=== PATIENT | female | born 1935 | race Caucasian/White ===

== ENCOUNTER 2016-10-04 18:05 | Inpatient (IN) | payer MEDICARE, MEDICAID ==
[~2016-10-04] VITALS: Ht 149.9 cm; Wt 77.2 kg
[~2016-10-04 18:05] MED LIST: /AMLO25TA PO; CALCTAB68 PO; CIPR250T2 PO; FLAG500T PO; GLUC500T PO; LASI40TA PO; METO12TA PO; ZEST20TA8 PO
[2016-10-04] MEDS ORDERED: AMPICILLIN SOD/SULBACTAM SOD 3 GM in D5W MINI-BAG PLUS 100 ML IV ONE (20:30)
--- NOTE | 2016-10-04 20:40 | REPUSA ---
Clinical history: Pain, swelling. Findings: The common femoral, superficial femoral, popliteal, and other deep venous structures compre ss normally and demonstrate normal color Doppler flow. Normal venous waveforms with augmentation are seen. Impression: No evidence of deep vein thrombosis in either femoral popliteal venous system.
[2016-10-04 21:06] LABS: BASO % 0.3 % (0.0-1.0); EOS # 0.1 K/mm3 (0.0-0.50); EOS % 1.1 % (0.0-3.0); LARGE UNSTAINED CELL # 0.1 K/mm3 (0.0-0.4); LARGE UNSTAINED CELL % 1.6 % (0.0-4.0); LYMPH # 0.8 K/mm3 (1.5-4.5); LYMPH % 11.5 % (24.0-44.0); MEAN CORPUSCULAR HEMOGLOBIN 28.4 pg (27.0-33.0); MEAN CORPUSCULAR HGB CONC 30.8 g/dl (32.0-36.5); MEAN CORPUSCULAR VOLUME 92.2 fl (80.0-96.0); MONO # 0.4 K/mm3 (0.0-0.8); MONO % 5.4 % (0.0-5.0); NEUTROPHILS # 5.2 K/mm3 (1.8-7.7); PLATELET COUNT, AUTOMATED 232 k/mm3 (150-450); RED CELL DISTRIBUTION WIDTH 13.7 % (11.5-14.5); WHITE BLOOD COUNT 6.5 K/mm3 (4.0-10.0)
[2016-10-04 21:38] LABS: CALCIUM LEVEL 8.6 MG/DL (8.8-10.2); CREATININE FOR GFR 1.39 MG/DL (0.55-1.02); GLOMERULAR FILTRATION RATE 38.6 (>32); POTASSIUM SERUM 4.4 MEQ/L (3.5-5.1)
[2016-10-04] MEDS ORDERED: NS 500 ML IV ONE (21:45)
[2016-10-04] MEDS ORDERED: AMLO10TA PO (22:37)
[2016-10-04] MEDS ORDERED: LASI40TA PO (22:37)
[2016-10-04] MEDS ORDERED: LISI-538 PO (22:37)
[2016-10-04] MEDS ORDERED: METO12TA PO (22:37)
[2016-10-05] MEDS ORDERED: GLUCAGON FOR INJ 1 MG VIAL (J1610) SC PRN (04:15)
[2016-10-05] MEDS ORDERED: GLUCOSE 4 GM CHEW TABLET PO PRN (04:15)
[2016-10-05] MEDS ORDERED: DEXTROSE 50% 50 ML SYRINGE IV PRN (04:15)
[2016-10-05] MEDS ORDERED: ACETAMINOPHEN TAB 650MG DOSE (2X325MG) PO PRN (04:30)
--- NOTE | 2016-10-05 05:05 | HPE ---
DATE OF ADMISSION: 10/05/2016 PRIMARY CARE PROVIDER: Terrence Olivarez MD. CHIEF COMPLAINT: Left leg pain. HISTORY OF PRESENT ILLNESS: This is an 81-year-old female patient with underlying medical history of diabetes, hypertension, diastolic congestive heart failure, from home, presented with worsening left lower extremity pain and swelling and redness. As per patient, the symptom has been present for a while. Does not know how long, but has been getting progressively worse. Patient baseline ambulating with a walker. Lives at home alone and the symptom has contributed to her inability to ambulate, subsequently not being able to take care of herself. Subsequently, emergency medical services (EMS) was called. The patient was actively trying to arrange for home health aide with the primary care provider. Called EMS, today was found to be disheveled with home seen very unsanitary condition, was subsequently brought to the emergency room, was also found to be very disheveled with very poor hygiene. Denies any fevers, chills, chest pain, pressure or discomfort. Baseline ambulating with a walker. Difficulty ambulating because of left lower extremity pain. Found to have erythema and purulent drainage from left lower extremity, weeping. ALLERGIES: No known allergies reported. PAST MEDICAL HISTORY: 1. Diabetes. 2. Hypertension. 3. Diastolic congestive heart failure. PAST SURGICAL HISTORY: Right ankle repair and removal of hardware in the 1980s. FAMILY HISTORY: Father of unknown cause. Mother at age 100. SOCIAL HISTORY: Denies smoking. No alcoholic beverages. REVIEW OF SYSTEMS: 10-point review of systems all negative except for those mentioned in the history of present illness (HPI). HOME MEDICATIONS: - Norvasc 10 mg by mouth daily - Lasix 40 mg by mouth daily - lisinopril 20 mg by mouth twice a day - metoprolol 25 mg by mouth twice a day - patient was on metformin from primary care provider's documentation, but not on medication reconciliation VITAL SIGNS: Temperature 99.3, pulse 90, respirations 18, blood pressure 105/56, pulse oximetry 93% on room air. LABORATORY: WBC 6.5, hemoglobin and hematocrit 12.8/41.6, platelets 232. Chemistry: Sodium 144, potassium 4.4, chloride 109, bicarbonate 29, BUN 46, creatinine 1.39. Lactic acid 1.2. Preliminary foot x-ray shows no fracture. Ultrasound Doppler negative for deep venous thrombosis (DVT). PHYSICAL EXAMINATION: GENERAL: Patient alert and oriented times three, disheveled, in no acute distress. HEENT: Normocephalic, atraumatic. Lip crusting. Dry mucous membranes. PULMONARY: Bilaterally clear to auscultation. CARDIAC: Regular rate and rhythm. Systolic ejection murmur. ABDOMEN: Soft, nontender, nondistended. Positive bowel sounds. EXTREMITIES: Bilateral lower extremities crusted and disheveled with poor extended nail. Left lower extremity erythema and clear drainage. Dorsalis pedis (DP), posterior tibialis (PT) pulses 2+ bilaterally. Left lower extremity slightly weaker, but able to move. As per patient, difficult to move due to pain. ASSESSMENT AND PLAN: This is an 81-year-old female patient with underlying medical history of diabetes, hypertension, diastolic congestive heart failure, admitted to the hospital for cellulitis of the left lower extremity and unable to ambulate. 1. Cellulitis. Teflaro, followup cultures. Wound care as ordered. Followup C-reactive protein. 2. Deconditioning. Unable to ambulate. Possibly associated with advanced age and also with underlying infection. Physical therapy. Patient and family services (PFS) consulted. Patient potentially needs placement versus home with services. 3. Diabetes. Followup A1c. Patient does not have any diabetic medication documented. Followup fingersticks. Insulin as needed. 4. Chronic kidney disease (CKD). BUN and creatinine at baseline. Continue to follow. 5. Hypertension. Continue blood pressure medication as ordered. 6. History of diastolic congestive heart failure. Patient currently compensated, actually patient is a bit on the dry side with dry mucous membranes. Lasix dosage will resume tomorrow at a lower dose and continue to monitor fluid levels. Followup electrolytes, kidney function and daily weight. 7. Deep venous thrombosis (DVT) prophylaxis. Heparin subcutaneously. DISPOSITION PLANNING: Pending PFS, social work, clinical improvement.
[2016-10-05 05:20] VITALS: BP 117/63
[2016-10-05 06:32] LABS: MEAN CORPUSCULAR HEMOGLOBIN 28.8 pg (27.0-33.0); MEAN CORPUSCULAR HGB CONC 30.8 g/dl (32.0-36.5); MEAN CORPUSCULAR VOLUME 93.5 fl (80.0-96.0); RED CELL DISTRIBUTION WIDTH 13.6 % (11.5-14.5); WHITE BLOOD COUNT 8.6 K/mm3 (4.0-10.0)
[2016-10-05] MEDS: CEFTAROLINE FOSAMIL 300 MG in D5W MINI-BAG PLUS 50 ML IV SCH ×2 (06:32→18:13)
[2016-10-05] MEDS: HEPARIN SOD (PORCINE) 5000 UNITS/ML VIAL SC SCH ×3 (06:32→21:41)
[2016-10-05 06:50] LABS: CALCIUM LEVEL 8.5 MG/DL (8.8-10.2); CREATININE FOR GFR 1.07 MG/DL (0.55-1.02); GLOMERULAR FILTRATION RATE 52.3 (>32); MAGNESIUM LEVEL 2.2 MG/DL (1.8-2.4); POTASSIUM SERUM 4.2 MEQ/L (3.5-5.1)
[2016-10-05] MEDS: HumaLOG INSULIN (NovoLOG) PER UNIT SC SCH ×4 (07:30→20:36)
--- NOTE | 2016-10-05 08:20 | REP ---
Pain and swelling with soft tissue infection. COMPARISON: None. Only two views were obtained. The bones are demineralized. Degenerative change is seen throughout the foot. Degenerative change is seen throughout the ankle. There is a plantar calcaneal heel spur. Two views show on evidence of an acute fracture. There is soft tissue swelling distally. There is no plain radiographic evidence of acute osteomyelitis. IMPRESSION: Chronic changes. Signed by Neel Pulliam DO 10/05/2016 08:49 A
[2016-10-05] MEDS ORDERED: SENOKOT S TAB PO PRN (09:00)
[2016-10-05] MEDS ORDERED: SENOKOT S TAB PO SCH (09:00)
[2016-10-05] MEDS ORDERED: FUROSEMIDE 40 MG TAB PO SCH (09:00)
--- NOTE | 2016-10-05 09:17 | IPNPDOC ---
Date Seen The patient was seen on 10/05/16. Progress Note Hospitalist Progress Note Subjective: And she had just returned from x-ray when I arrived in the room. She did have some discomfort when being transferred into her hospital bed from transport bed. Otherwise she does not have any additional complaints. She did have left lower extremity pain when she came in, but she states that the pain is significantly improved at this point. Otherwise, she is quite pleasant, and has no additional complaints. Objective: General: Awake, alert, oriented 3. She is reclined in the hospital bed. She appears to be in no acute distress. HEENT: Head normocephalic, atraumatic, sclera are nonicteric. Hearing is grossly intact to conversation. Respiratory: Clear to auscultation bilaterally with no wheezes, rales, or rhonchi. Cardiovascular: Irregularly irregular, no murmurs rubs or gallops could be appreciated. Abdomen: Soft, nontender, nondistended, no hepatosplenomegaly appreciated. Bowel sounds present. Extremities: 2+ pulses in the radial and dorsalis pedis bilaterally. She does have a large area of erythema extending from the sole of her left foot up to the funk. She also has a significant amount of dried flaky skin on bilateral lower extremities, and a large cutaneous horn on the right lateral leg. There are venous stasis changes in bilateral lower extremities. Assessment/Plan: 1. Cellulitis left lower extremity. Continue with Teflaro. She does not have any leukocytosis or fever, her pain is significantly improved. We will trend her CRP. 2. Deconditioning. Continue with recommendations per physical therapy, and disposition planning with PFS 3. Diabetes. Hemoglobin A1c is 6.9 with no diabetic medications. We'll continue to monitor blood sugars and administer insulin as necessary per protocol 4. Chronic kidney disease. Creatinine significantly improved today. Continue to monitor 5. Hypertension. Within acceptable limits. Continue with lisinopril and metoprolol titrate at her home dose 6. History of diastolic congestive heart failure. Appears euvolemic on exam today. Continue with home dose of Lasix 7. DVT prophylaxis. Heparin subcutaneously My preceptor for this patient encounter was physically present in the building during the encounter and was fully available. As needed, all aspects of the patient interview, examination, medical decision making process, and medical care plan development were reviewed and approved by the preceptor. Preceptor is aware and concurs with the plan as stated in the body of this note and will attest to such by his/her cosignature. Attending note: patient seen and evaluated independently. Discuss the treatment and hospital course with resident and I agree with the above treatment plan. VS, I&O, 24H, Fishbone Vital Signs/I&O Vital Signs Date Time Temp Pulse Resp B/P Pulse Ox O2 Delivery O2 Flow Rate FiO2 10/05/16 05:20 99.0 91 26 117/63 95 Room Air I&O- Last 24 Hours up to 6 AM 10/05/16 06:00 Intake Total 0 ml Output Total 225 ml Balance -225 ml Laboratory Data 24H LABS Laboratory Tests 2 10/04/16 20:56: Anion Gap 6L, White Blood Count 6.5, Red Blood Count 4.51, Hemoglobin 12.8, Hematocrit 41.6, Mean Corpuscular Volume 92.2, Mean Corpuscular Hemoglobin 28.4 , Mean Corpuscular Hemoglobin Concent 30.8L, Red Cell Distribution Width 13.7, Platelet Count 232, Neutrophils (%) (Auto) 80.0H, Lymphocytes (%) (Auto) 11.5L, Monocytes (%) (Auto) 5.4H, Eosinophils (%) (Auto) 1.1, Basophils (%) (Auto) 0.3 , Neutrophils # (Auto) 5.2, Lymphocytes # (Auto) 0.8L, Monocytes # (Auto) 0.4, Eosinophils # (Auto) 0.1, Basophils # (Auto) 0.0, C-Reactive Protein, Quantitative 3.23H, Blood Urea Nitrogen 46H, Creatinine 1.39H, Sodium Level 144 , Potassium Level 4.4, Chloride Level 109H, Carbon Dioxide Level 29, Calcium Level 8.6L, Estimated Mean Plasma Glucose 151H, Glomerular Filtration Rate 38.6 , Hemoglobin A1c 6.9H, Lactic Acid Level 1.2, Large Unclassified Cells # 0.1, Large Unclassified Cells % 1.6 10/05/16 05:33: Bedside Glucose (Misc Panel) 84 10/05/16 06:16: Anion Gap 13, Blood Urea Nitrogen 38H, Creatinine 1.07H, Sodium Level 146H, Potassium Level 4.2, Chloride Level 111H, Carbon Dioxide Level 22, Calcium Level 8.5L, Glomerular Filtration Rate 52.3, Magnesium Level 2.2 CBC/BMP Laboratory Tests 10/04/16 20:56 Calcium Level 8.6 L, Red Blood Count 4.51, Mean Corpuscular Volume 92.2, Mean Corpuscular Hemoglobin 28.4, Mean Corpuscular Hemoglobin Concent 30.8 L, Red Cell Distribution Width 13.7, Neutrophils (%) (Auto) 80.0 H, Lymphocytes (%) ( Auto) 11.5 L, Monocytes (%) (Auto) 5.4 H, Eosinophils (%) (Auto) 1.1, Basophils (%) (Auto) 0.3, Neutrophils # (Auto) 5.2, Lymphocytes # (Auto) 0.8 L, Monocytes # (Auto) 0.4, Eosinophils # (Auto) 0.1, Basophils # (Auto) 0.0 10/05/16 06:16 Calcium Level 8.5 L, Red Blood Count 4.50, Mean Corpuscular Volume 93.5, Mean Corpuscular Hemoglobin 28.8, Mean Corpuscular Hemoglobin Concent 30.8 L, Red Cell Distribution Width 13.6 Microbiology Microbiology 10/04/16 Blood Culture, Received Pending TIMOTHY LEE DO Oct 05, 2016 09:17 AURA MARTINEZ DO Oct 05, 2016 11:23
--- NOTE | 2016-10-05 09:36 | REP ---
REASON: Pain. COMPARISON: None. The bones are demineralized. Degenerative change is seen involving the knee and ankle. There is an old healed proximal fibular fracture. There is no evidence of any acute fracture or destructive osseous lesion. IMPRESSION: Chronic changes. Signed by Neel Pulliam DO 10/05/2016 10:20 A
--- NOTE | 2016-10-05 09:37 | REP ---
REASON: Pain. COMPARISON: None. The bones are somewhat demineralized. There is no acute fracture or destructive osseous lesion. The hip joint space is symmetric and relatively well maintained. IMPRESSION: Slight degenerative changes. No fracture or dislocation. Signed by Neel Pulliam DO 10/05/2016 10:20 A
[2016-10-05] MEDS: LACTOBACILLUS ACIDOPHILUS CAP (BACID) PO SCH ×2 (09:47→21:41)
[2016-10-05] MEDS: METOPROLOL TART 25 MG TABLET PO SCH ×2 (10:41→21:00)
[2016-10-05] MEDS: amLODIPine 10 MG TAB PO SCH (10:41)
[2016-10-05] MEDS: LISINOPRIL 20 MG TAB PO SCH ×2 (10:41→21:00)
[2016-10-05 13:52] LABS: INR 1.24
--- NOTE | 2016-10-05 13:57 | ECGEPIP ---
Stationary ECG Study [facility] Test Date: 2016-10-05 Pat Name: LOIS MCFADDEN Department: Room: [place] [address] Gender: F Specialist Physicians: WILLIAM : 1935 Requested By: TIMOTHY LEE Order Number: [id number] Reading MD: Jaquan Salazar Measurements Intervals [place] Rate: 88 P: NE: 0 QRS: -34 QRSD: 92 T: 42 QT: 380 QTc: 461 Interpretive Statements ATRIAL FIBRILLATION WITH VENTRICULAR PREMATURE COMPLEX INFERIOR MYOCARDIAL INFARCTION, PROBABLY OLD Possible ANTEROSEPTAL MYOCARDIAL INFARCTION, Old Low voltages. Atrial fibrillation new compared with 10/02/2012. Electronically Signed On 10-05-2016 13:56:52 EDT by Jaquan Salazar
[2016-10-05 14:00] VITALS: BP 90/53
[2016-10-05 14:14] LABS: FREE T4 1.12 NG/DL (0.76-1.46); PHOSPHORUS LEVEL 2.7 MG/DL (2.5-4.9)
[2016-10-05 14:26] VITALS: BP 105/51
[2016-10-05 16:00] VITALS: BP 97/56
[2016-10-05] MEDS ORDERED: SODIUM CHLORIDE 0.9% 1000 ML IV ONE (16:30)
[2016-10-05 20:41] VITALS: BP 111/55
[2016-10-05 23:46] VITALS: BP 105/52
[2016-10-06] MEDS: HEPARIN SOD (PORCINE) 5000 UNITS/ML VIAL SC SCH (05:18)
[2016-10-06] MEDS: CEFTAROLINE FOSAMIL 300 MG in D5W MINI-BAG PLUS 50 ML IV SCH ×2 (05:18→18:38)
[2016-10-06 05:54] LABS: MEAN CORPUSCULAR HEMOGLOBIN 29.3 pg (27.0-33.0); MEAN CORPUSCULAR HGB CONC 31.9 g/dl (32.0-36.5); MEAN CORPUSCULAR VOLUME 91.9 fl (80.0-96.0); RED CELL DISTRIBUTION WIDTH 13.7 % (11.5-14.5); WHITE BLOOD COUNT 7.8 K/mm3 (4.0-10.0)
[2016-10-06 06:05] VITALS: BP 113/66
[2016-10-06 06:17] LABS: CALCIUM LEVEL 8.1 MG/DL (8.8-10.2); GLOMERULAR FILTRATION RATE 56.5 (>32); POTASSIUM SERUM 3.7 MEQ/L (3.5-5.1)
[2016-10-06] MEDS: HumaLOG INSULIN (NovoLOG) PER UNIT SC SCH ×4 (07:39→20:57)
[2016-10-06 07:53] VITALS: BP 128/65
--- NOTE | 2016-10-06 08:35 | IPN ---
DATE: 10/06/2016 81-year-old female seen at bedside resting comfortably. She ate breakfast this morning with no problems. No nausea or vomiting. No chest pain. No palpitations. She was transferred from the medical floor to the progressive care unit (PCU) last night when she was found to have an irregular heart rate and found to have atrial fibrillation on electrocardiogram (EKG). She has done well on telemetry overnight. She does remain in atrial fibrillation, but she is rate controlled currently on metoprolol. OBJECTIVE: Temperature 97, pulse 99, respiratory rate is 20, blood pressure (BP) 128/65, SPO2 is 93% on room air. General: The patient appears to be in no acute distress. She is pleasant. HEENT: Head atraumatic, normocephalic. Eyes: Pupils equal, reactive to light and accommodation (DOMINGO). Throat clear. Lungs: Clear to auscultation. Heart: Irregularly irregular. Abdomen: Soft, nontender. Positive bowel sounds. No masses or rebound. Extremities: She does have some chronic scaling and chronic venous stasis changes. Some erythema noted on the right lower extremity, does appear to be slightly better. No ulcerations noted. LABORATORY DATA: White count is 7.8, hemoglobin 11.9, platelets 222,000. Sodium is 145, potassium 3.7, chloride 110, bicarb 28, anion gap 7, BUN is 29, creatinine 1.0, glucose 124. Calcium is 8.1. Magnesium 2.0. C-reactive protein is 5.72. I did review her 12-lead EKG from yesterday and it does show atrial fibrillation. She is rate controlled however. No acute ST-T wave abnormalities. ASSESSMENT/PLAN: 1. Cellulitis lower extremities, left greater than right. Continue on Teflaro. She does not have any leukocytosis. She is afebrile. Her CRP however is slightly elevated today. I would like to get a wound consult from physical therapy. However, I am not making any changes in her antibiotics currently. Will wait for culture results. 2. Deconditioning. Continue with physical therapy recommendations. Discharge planning with Patient and Family Services (PFS). 3. New-onset atrial fibrillation. She is rate controlled on metoprolol. 2-D echo is pending at this time. She does have a CHADS-VASc score of 6 and I did start her on Xarelto today. 4. Diabetes. Continue with fingersticks, sliding scale coverage as needed and consistent carbohydrate diet. 5. Chronic kidney disease (CKD). Does appear to be at baseline. 6. Hypertension, stable. Continue on lisinopril and metoprolol. 7. Congestive heart failure (CHF) with diastolic dysfunction. She does appear euvolemic. Continue with current dose of Lasix. 8. Deep vein thrombosis (DVT) prophylaxis. I have discontinued her heparin since we are starting her on Xarelto. DISPOSITION: Will check a 2-D echo. She does again appear to be rate controlled on the metoprolol. Will leave her on telemetry another 24 hours and plan on downgrading her to medical/surgical tomorrow. long term care social worker, however, I do suspect that she will need continuous care and will again discuss this with PFS regarding her discharge planning.
[2016-10-06] MEDS: amLODIPine 10 MG TAB PO SCH (09:15)
[2016-10-06] MEDS: LACTOBACILLUS ACIDOPHILUS CAP (BACID) PO SCH ×2 (09:15→20:56)
[2016-10-06] MEDS: LISINOPRIL 20 MG TAB PO SCH ×2 (09:16→20:56)
[2016-10-06] MEDS: METOPROLOL TART 25 MG TABLET PO SCH ×2 (09:16→20:56)
[2016-10-06 12:00] VITALS: BP_SYST 114; BP_SYST 117; BP_DIAS 64
[2016-10-06] MEDS: RIVAROXABAN 20 MG TAB (XARELTO) PO SCH (18:00)
[2016-10-06 19:32] VITALS: BP 118/68
[2016-10-07] VITALS (7 sets, daily range): BP systolic 104–153; BP diastolic 56–79
[2016-10-07] MEDS: CEFTAROLINE FOSAMIL 300 MG in D5W MINI-BAG PLUS 50 ML IV SCH ×2 (05:38→17:18)
--- NOTE | 2016-10-07 05:40 | ECHO ---
DATE OF PROCEDURE: 10/06/2016 REFERRING PHYSICIAN: Dr. Alan Jacques/Dr. Vinny Tabares. INDICATION: HEIGHT: 4 feet 11 inches. WEIGHT: 207 pounds. 2D MEASUREMENTS: Aortic root: 2.8 cm Proximal ascending aorta: 2.8 cm Left atrium: 4.8 cm Ventricular septum: 1.03 cm Posterior wall: 0.99 cm Left ventricle diastole: 4.4 cm Left ventricle systole: 2.2 cm Right ventricle: 4.9 cm Left atrial volume index: 49 DOPPLER MEASUREMENTS: Very mild aortic regurgitation. No aortic stenosis. Aortic valve velocity: 200 cm/s LVOT velocity: 109 cm/s LVOT VTI: 23.0 cm Moderate mitral regurgitation. Mild tricuspid regurgitation. Estimated right ventricular systolic pressure 34 mmHg assuming an atrial pressure of 5 mmHg. MITRAL ANNULAR TISSUE DOPPLER: E-prime lateral: 8.1 cm/s E-prime septal: 7.4 cm/s DESCRIPTION: Rhythm appeared to be atrial fibrillation. Image quality was fair. This is a 2D, M-mode, color flow Doppler and pulsed wave Doppler examination and included mitral annular tissue Doppler. CONCLUSIONS: 1. Normal left ventricle size and internal dimensions. Normal LV wall thickness. No regional wall motion abnormalities. Normal left ventricle systolic function. LVEF 65% by visual estimate. 2. Severe left atrial dilatation. 3. Moderate mitral annular calcification. Moderate mitral regurgitation. No mitral stenosis. 4. Moderate aortic valve sclerosis of a 3-cusp aortic valve. Very mild aortic regurgitation. No aortic stenosis. 5. Suggestive of mild elevation of estimated right ventricle systolic pressure. Mild tricuspid regurgitation. Mild right ventricle dilatation with normal RV systolic function. Moderate right atrial dilatation by visual assessment.
[2016-10-07 05:56] LABS: MEAN CORPUSCULAR HEMOGLOBIN 29.1 pg (27.0-33.0); MEAN CORPUSCULAR HGB CONC 31.3 g/dl (32.0-36.5); MEAN CORPUSCULAR VOLUME 92.9 fl (80.0-96.0); RED CELL DISTRIBUTION WIDTH 13.7 % (11.5-14.5); WHITE BLOOD COUNT 6.9 K/mm3 (4.0-10.0)
[2016-10-07 06:13] LABS: ANION GAP 4 MEQ/L (8-16); BLOOD UREA NITROGEN 23 MG/DL (7-18); CALCIUM LEVEL 8.6 MG/DL (8.8-10.2); CARBON DIOXIDE LEVEL 30 MEQ/L (21-32); CHLORIDE LEVEL 110 MEQ/L (98-107); GLOMERULAR FILTRATION RATE > 60.0 (>32); GLUCOSE, FASTING 108 MG/DL (83-110); MAGNESIUM LEVEL 2.2 MG/DL (1.8-2.4); POTASSIUM SERUM 4.1 MEQ/L (3.5-5.1); SODIUM LEVEL 144 MEQ/L (136-145)
[2016-10-07] MEDS: HumaLOG INSULIN (NovoLOG) PER UNIT SC SCH ×4 (08:35→20:30)
[2016-10-07] MEDS: LISINOPRIL 20 MG TAB PO SCH ×2 (08:35→20:30)
[2016-10-07] MEDS: amLODIPine 10 MG TAB PO SCH (08:36)
[2016-10-07] MEDS: LACTOBACILLUS ACIDOPHILUS CAP (BACID) PO SCH ×2 (08:36→20:30)
[2016-10-07] MEDS: METOPROLOL TART 25 MG TABLET PO SCH ×2 (08:36→20:30)
[2016-10-07] MEDS: RIVAROXABAN 20 MG TAB (XARELTO) PO SCH (17:18)
--- NOTE | 2016-10-07 18:20 | IPNPDOC ---
Date Seen The patient was seen on 10/07/16. Progress Note Hospitalist Progress Note Subjective: The patient has no complaints. Objective: Physical Exam: Vitals: Vital Sign - Last 24 Hours 10/06/16 10/06/16 10/06/16 10/07/16 19:32 20:00 20:56 00:03 Temp 98.4 98.2 Pulse 83 83 83 Resp 20 20 B/P 118/68 118/68 131/69 Pulse Ox 91 91 O2 Delivery Room Air Room Air Room Air 10/07/16 10/07/16 10/07/16 10/07/16 04:47 07:48 08:00 08:35 Temp 97.8 97.6 Pulse 84 78 Resp 22 22 B/P 120/77 125/78 125/78 Pulse Ox 91 90 O2 Delivery Room Air Room Air Room Air 10/07/16 10/07/16 10/07/16 10/07/16 08:36 11:56 12:00 16:00 Temp 98.0 98.2 Pulse 84 75 79 Resp 18 20 B/P 104/56 120/67 Pulse Ox 92 92 O2 Delivery Room Air Room Air Room Air General: Awake, alert, no acute distress HEENT: Normocephalic, atraumatic, extraocular movements intact CV: Regular rate and rhythm, no murmurs rubs or gallops Lungs: Clear to Auscultation bilaterally Abd: Soft, nontender, nondistended Extremities: Bilateral venous stasis changes; increased erythema of the left funk, with weeping area near the ankle; right funk has a large, prominent growth Neuro: Alert and oriented 3, normal speech Psych: And normal mood and affect Labs and Imaging: Laboratory Tests 10/07/16 05:10 Calcium Level 8.6 L, Red Blood Count 4.17, Mean Corpuscular Volume 92.9, Mean Corpuscular Hemoglobin 29.1, Mean Corpuscular Hemoglobin Concent 31.3 L, Red Cell Distribution Width 13.7 Assessment and Plan: 81-year-old female with diabetes mellitus type 2, hypertension, chronic diastolic CHF and bilateral venous stasis who was sent for further evaluation of erythema of her left leg by her home health aide. The patient was initially admitted for concern for left lower extremity cellulitis, but while here, she was noted to have new diagnosis A. fib. 1. Left lower extremity cellulitis: There is no evidence of DVT in this leg, and plain films do not show any evidence of osteomyelitis. The patient is afebrile with a normal white count. We will continue Teflaro at this time. Blood cultures are negative. 2. Hypertension: Continue home Norvasc, beta clayton, BRIDGER inhibitor. 3. Diabetes mellitus type 2: A1c is 6.9. The patient does not report taking any medications at home. We will continue sliding scale insulin while the patient is in-house. 4. New diagnosis A. fib: The patient is currently rate controlled. She appears to slip in and out of A. fib. Continue beta clayton, as well as xarelto. Echocardiogram showed an EF of 65% with no regional wall abnormalities. Additional moderate mitral regurg, as well as a dilated left atrium. 5. Chronic diastolic CHF: We are currently holding the patient's home Lasix. See above for echocardiogram. 6. Growth on the right lower extremity: I have spoken to Dr. Dumas, who has agreed to see the patient in consultation for possible biopsy or excision. 7. Acute kidney injury: Now resolved. Lasix is currently on hold. DVT prophylaxis: xarelto Dispo: pending ability to transition to oral antibiotics; the patient can be transferred to the floor as her telemetry has been uneventful for 48 hours VS, I&O, 24H, [facility] Vital Signs/I&O Vital Signs Date Time Temp Pulse Resp B/P Pulse Ox O2 Delivery O2 Flow Rate FiO2 10/07/16 16:00 98.2 79 20 120/67 92 Room Air I&O- Last 24 Hours up to 6 AM 10/07/16 06:00 Intake Total 410 ml Output Total 300 ml Balance 110 ml Laboratory Data 24H LABS Laboratory Tests 2 10/06/16 20:40: Bedside Glucose (Misc Panel) 138H 10/07/16 05:10: Anion Gap 4L, C-Reactive Protein, Quantitative 3.17H, Blood Urea Nitrogen 23H, Creatinine 0.80, Sodium Level 144, Potassium Level 4.1, Chloride Level 110H, Carbon Dioxide Level 30, Calcium Level 8.6L, Glomerular Filtration Rate > 60.0, Magnesium Level 2.2 10/07/16 11:43: Bedside Glucose (Misc Panel) 116H CBC/BMP Laboratory Tests 10/07/16 05:10 Calcium Level 8.6 L, Red Blood Count 4.17, Mean Corpuscular Volume 92.9, Mean Corpuscular Hemoglobin 29.1, Mean Corpuscular Hemoglobin Concent 31.3 L, Red Cell Distribution Width 13.7 Microbiology Microbiology 10/04/16 Blood Culture - Preliminary, Resulted No Growth after 48 hours. All Specime... JESENIA HERNANDEZ Oct 07, 2016 18:20
[2016-10-08] MEDS: CEFTAROLINE FOSAMIL 300 MG in D5W MINI-BAG PLUS 50 ML IV SCH ×2 (05:43→17:38)
[2016-10-08 06:00] VITALS: BP 131/68
[2016-10-08 06:58] LABS: MEAN CORPUSCULAR HGB CONC 32.1 g/dl (32.0-36.5); MEAN CORPUSCULAR VOLUME 93.4 fl (80.0-96.0); RED CELL DISTRIBUTION WIDTH 13.7 % (11.5-14.5); WHITE BLOOD COUNT 6.6 K/mm3 (4.0-10.0)
[2016-10-08 07:17] LABS: ANION GAP 5 MEQ/L (8-16); BLOOD UREA NITROGEN 22 MG/DL (7-18); CALCIUM LEVEL 8.7 MG/DL (8.8-10.2); CARBON DIOXIDE LEVEL 31 MEQ/L (21-32); CHLORIDE LEVEL 108 MEQ/L (98-107); CREATININE FOR GFR 0.89 MG/DL (0.55-1.02); GLOMERULAR FILTRATION RATE > 60.0 (>32); GLUCOSE, FASTING 102 MG/DL (83-110); MAGNESIUM LEVEL 2.3 MG/DL (1.8-2.4); POTASSIUM SERUM 4.2 MEQ/L (3.5-5.1); SODIUM LEVEL 144 MEQ/L (136-145)
[2016-10-08] MEDS: HumaLOG INSULIN (NovoLOG) PER UNIT SC SCH ×4 (07:30→21:00)
[2016-10-08] MEDS: amLODIPine 10 MG TAB PO SCH (11:13)
[2016-10-08] MEDS: LACTOBACILLUS ACIDOPHILUS CAP (BACID) PO SCH ×2 (11:13→20:47)
[2016-10-08] MEDS: LISINOPRIL 20 MG TAB PO SCH ×2 (11:14→20:47)
[2016-10-08] MEDS: METOPROLOL TART 25 MG TABLET PO SCH ×2 (11:14→20:47)
[2016-10-08 12:48] VITALS: BP 110/53
[2016-10-08 14:00] VITALS: BP 112/66
[2016-10-08] MEDS: RIVAROXABAN 20 MG TAB (XARELTO) PO SCH (17:38)
--- NOTE | 2016-10-08 19:08 | IPNPDOC ---
Date Seen The patient was seen on 10/08/16. Progress Note Hospitalist Progress Note Subjective: The patient is feeling well today Objective: Physical Exam: Vitals: Vital Sign - Last 24 Hours 10/07/16 10/07/16 10/07/16 10/07/16 20:00 20:00 20:30 22:15 Temp 98.3 99.1 Pulse 72 72 76 Resp 18 20 B/P 127/63 127/63 153/79 Pulse Ox 93 93 O2 Delivery Room Air Room Air Room Air 10/07/16 10/08/16 10/08/16 10/08/16 22:39 06:00 08:00 11:13 Temp 97.7 Pulse 78 85 Resp 20 B/P 131/68 128/70 Pulse Ox 92 O2 Delivery Room Air Room Air Room Air 10/08/16 10/08/16 10/08/16 10/08/16 11:14 11:14 12:48 13:00 Temp 99.1 Pulse 85 78 Resp 20 B/P 128/70 128/70 110/53 Pulse Ox 91 O2 Delivery Room Air Room Air 10/08/16 14:00 Temp 99.0 Pulse 70 Resp 20 B/P 112/66 Pulse Ox 92 O2 Delivery Room Air General: Awake, alert, no acute distress HEENT: Normocephalic, atraumatic, extraocular movements intact CV: Regular rate and rhythm Lungs: Clear to Auscultation bilaterally, no wheeze Abd: Soft, nontender, nondistended Extremities: Bilateral venous stasis changes; increased erythema of the left funk, with weeping area near the ankle; right funk has a large, prominent growth Neuro: Alert and oriented 3, normal speech Psych: normal mood and affect Labs and Imaging: Laboratory Tests 10/08/16 06:15 Calcium Level 8.7 L, Red Blood Count 4.03, Mean Corpuscular Volume 93.4, Mean Corpuscular Hemoglobin 30.0, Mean Corpuscular Hemoglobin Concent 32.1, Red Cell Distribution Width 13.7 Assessment and Plan: 81-year-old female with diabetes mellitus type 2, hypertension, chronic diastolic CHF and bilateral venous stasis who was sent for further evaluation of erythema of her left leg by her home health aide. The patient was initially admitted for concern for left lower extremity cellulitis, but while here, she was noted to have new diagnosis A. fib. 1. Left lower extremity cellulitis: There is no evidence of DVT in this leg, and plain films do not show any evidence of osteomyelitis. The patient is afebrile with a normal white count. We will continue Teflaro at this time. Blood cultures are negative. 2. Hypertension: Continue home Norvasc, beta clayton, BRIDGER inhibitor. 3. Diabetes mellitus type 2: A1c is 6.9. The patient does not report taking any medications at home. We will continue sliding scale insulin while the patient is in-house. 4. New diagnosis A. fib: The patient is currently rate controlled. She appears to slip in and out of A. fib. Continue beta clayton, as well as xarelto. Echocardiogram showed an EF of 65% with no regional wall abnormalities, as well as moderate mitral regurg, as well as a dilated left atrium. 5. Chronic diastolic CHF: We are currently holding the patient's home Lasix. See above for echocardiogram. 6. Growth on the right lower extremity: I have spoken to Dr. Dumas, who has agreed to see the patient in consultation for possible biopsy or excision. 7. Acute kidney injury: Now resolved. Lasix is currently on hold. DVT prophylaxis: xarelto Dispo: pending clinical improvement and ability to transition to oral antibiotics; will likely need placement VS, [facility]&O, [facility], [facility] Vital Signs/I&O Vital Signs Date Time Temp Pulse Resp B/P Pulse Ox O2 Delivery O2 Flow Rate FiO2 10/08/16 14:00 99.0 70 20 112/66 92 Room Air I&O- Last 24 Hours up to 6 AM 10/08/16 06:00 Intake Total 1010 ml Output Total 750 ml Balance 260 ml Laboratory Data 24H LABS Laboratory Tests 2 10/07/16 20:29: Bedside Glucose (Misc Panel) 122H 10/08/16 06:15: Anion Gap 5L, C-Reactive Protein, Quantitative 1.85H, Blood Urea Nitrogen 22H, Creatinine 0.89, Sodium Level 144, Potassium Level 4.2, Chloride Level 108H, Carbon Dioxide Level 31, Calcium Level 8.7L, Glomerular Filtration Rate > 60.0, Magnesium Level 2.3 10/08/16 12:11: Bedside Glucose (Misc Panel) 119H 10/08/16 16:47: Bedside Glucose (Misc Panel) 111H CBC/BMP Laboratory Tests 10/08/16 06:15 Calcium Level 8.7 L, Red Blood Count 4.03, Mean Corpuscular Volume 93.4, Mean Corpuscular Hemoglobin 30.0, Mean Corpuscular Hemoglobin Concent 32.1, Red Cell Distribution Width 13.7 Microbiology Microbiology 10/04/16 Blood Culture - Preliminary, Resulted No Growth after 72 hours. All specime... JESENIA HERNANDEZ Oct 08, 2016 19:08
[2016-10-08 22:00] VITALS: BP 126/84
[2016-10-09] MEDS: CEFTAROLINE FOSAMIL 300 MG in D5W MINI-BAG PLUS 50 ML IV SCH ×2 (05:08→17:45)
[2016-10-09 06:00] VITALS: BP 121/65
[2016-10-09 06:36] LABS: MEAN CORPUSCULAR HEMOGLOBIN 29.1 pg (27.0-33.0); MEAN CORPUSCULAR VOLUME 93.8 fl (80.0-96.0); RED CELL DISTRIBUTION WIDTH 13.8 % (11.5-14.5); WHITE BLOOD COUNT 6.8 K/mm3 (4.0-10.0)
[2016-10-09 06:54] LABS: ANION GAP 4 MEQ/L (8-16); BLOOD UREA NITROGEN 27 MG/DL (7-18); CALCIUM LEVEL 8.6 MG/DL (8.8-10.2); CARBON DIOXIDE LEVEL 30 MEQ/L (21-32); CHLORIDE LEVEL 111 MEQ/L (98-107); CREATININE FOR GFR 0.81 MG/DL (0.55-1.02); GLOMERULAR FILTRATION RATE > 60.0 (>32); GLUCOSE, FASTING 120 MG/DL (83-110); MAGNESIUM LEVEL 2.4 MG/DL (1.8-2.4); POTASSIUM SERUM 4.5 MEQ/L (3.5-5.1); SODIUM LEVEL 145 MEQ/L (136-145)
[2016-10-09] MEDS: HumaLOG INSULIN (NovoLOG) PER UNIT SC SCH ×4 (08:06→20:28)
[2016-10-09] MEDS: LACTOBACILLUS ACIDOPHILUS CAP (BACID) PO SCH ×2 (08:06→20:27)
[2016-10-09] MEDS: METOPROLOL TART 25 MG TABLET PO SCH ×2 (08:07→20:28)
[2016-10-09] MEDS: LISINOPRIL 20 MG TAB PO SCH ×2 (08:07→20:27)
[2016-10-09] MEDS: amLODIPine 10 MG TAB PO SCH (08:07)
[2016-10-09 14:00] VITALS: BP 103/58
--- NOTE | 2016-10-09 15:42 | IPNPDOC ---
Date Seen The patient was seen on 10/09/16. Progress Note Hospitalist Progress Note Subjective: The patient is feeling well today; she is sitting up in the chair Objective: Physical Exam: Vitals: Vital Sign - Last 24 Hours 10/08/16 10/08/16 10/08/16 10/08/16 20:47 20:47 21:50 22:00 Temp 97.6 Pulse 67 67 Resp 15 B/P 126/84 126/84 126/84 Pulse Ox 92 O2 Delivery Room Air Room Air 10/09/16 10/09/16 10/09/16 10/09/16 06:00 08:07 08:07 08:07 Temp 97.0 Pulse 65 101 101 Resp 15 B/P 121/65 124/67 124/67 124/67 Pulse Ox 90 O2 Delivery Room Air 10/09/16 09:00 O2 Delivery Room Air General: Awake, alert, no acute distress HEENT: Normocephalic, atraumatic, extraocular movements intact CV: Regular rate and rhythm, no murmur Lungs: Clear to Auscultation bilaterally Abd: Soft, nontender, nondistended Extremities: Bilateral venous stasis changes; unchanged erythema of the left funk, with weeping area near the ankle; right funk has a large, prominent growth Neuro: Alert and oriented 3, normal speech Psych: normal mood and affect Labs and Imaging: Laboratory Tests 10/09/16 06:21 Calcium Level 8.6 L, Red Blood Count 3.92 L, Mean Corpuscular Volume 93.8, Mean Corpuscular Hemoglobin 29.1, Mean Corpuscular Hemoglobin Concent 31.0 L, Red Cell Distribution Width 13.8 Assessment and Plan: 81-year-old female with diabetes mellitus type 2, hypertension, chronic diastolic CHF and bilateral venous stasis who was sent for further evaluation of erythema of her left leg by her home health aide. The patient was initially admitted for concern for left lower extremity cellulitis, but while here, she was noted to have new diagnosis A. fib. 1. Left lower extremity cellulitis: There is no evidence of DVT in this leg, and plain films do not show any evidence of osteomyelitis. The patient is afebrile with a normal white count. CRP was been trending down. We will continue Teflaro at this time. Blood cultures are negative. 2. Hypertension: Continue home Norvasc, beta clayton, BRIDGER inhibitor. 3. Diabetes mellitus type 2: A1c is 6.9. The patient does not report taking any medications at home. We will continue sliding scale insulin while the patient is in-house. 4. New diagnosis A. fib: The patient is currently rate controlled. She appears to slip in and out of A. fib. Continue beta clayton, as well as xarelto. Echocardiogram showed an EF of 65% with no regional wall abnormalities, as well as moderate mitral regurg, as well as a dilated left atrium. 5. Chronic diastolic CHF: We are currently holding the patient's home Lasix but will restart it today. See above for echocardiogram. 6. Growth on the right lower extremity: I have spoken to Dr. Dumas, who saw the patient in consultation. He tells me that she declined any biopsy or excision by him. 7. Acute kidney injury: Now resolved. Will resume home lasix. DVT prophylaxis: xarelto Dispo: pending clinical improvement and ability to transition to oral antibiotics; will likely need placement VS, I&O, 24H, [facility] Vital Signs/I&O Vital Signs Date Time Temp Pulse Resp B/P Pulse Ox O2 Delivery O2 Flow Rate FiO2 10/09/16 09:00 Room Air 10/09/16 08:07 101 124/67 10/09/16 06:00 97.0 15 90 I&O- Last 24 Hours up to 6 AM 10/09/16 05:59 Intake Total 820 ml Output Total 975 ml Balance -155 ml Laboratory Data 24H LABS Laboratory Tests 2 10/08/16 16:47: Bedside Glucose (Misc Panel) 111H 10/08/16 19:52: Bedside Glucose (Misc Panel) 150H 10/09/16 06:19: Bedside Glucose (Misc Panel) 127H 10/09/16 06:21: Anion Gap 4L, C-Reactive Protein, Quantitative 1.09H, Blood Urea Nitrogen 27H, Creatinine 0.81, Sodium Level 145, Potassium Level 4.5, Chloride Level 111H, Carbon Dioxide Level 30, Calcium Level 8.6L, Glomerular Filtration Rate > 60.0, Magnesium Level 2.4 CBC/BMP Laboratory Tests 10/09/16 06:21 Calcium Level 8.6 L, Red Blood Count 3.92 L, Mean Corpuscular Volume 93.8, Mean Corpuscular Hemoglobin 29.1, Mean Corpuscular Hemoglobin Concent 31.0 L, Red Cell Distribution Width 13.8 Microbiology Microbiology 10/04/16 Blood Culture - Preliminary, Resulted No Growth after 72 hours. All specime... JESENIA HERNANDEZ Oct 09, 2016 15:42
[2016-10-09] MEDS: RIVAROXABAN 20 MG TAB (XARELTO) PO SCH (17:45)
[2016-10-09] MEDS: FUROSEMIDE 40 MG TAB PO SCH (17:45)
[2016-10-09 22:00] VITALS: BP 123/59
[2016-10-10] MEDS: CEFTAROLINE FOSAMIL 300 MG in D5W MINI-BAG PLUS 50 ML IV SCH ×2 (05:23→18:10)
[2016-10-10 06:33] LABS: MEAN CORPUSCULAR HEMOGLOBIN 28.3 pg (27.0-33.0); MEAN CORPUSCULAR HGB CONC 30.2 g/dl (32.0-36.5); MEAN CORPUSCULAR VOLUME 93.4 fl (80.0-96.0); RED CELL DISTRIBUTION WIDTH 13.8 % (11.5-14.5); WHITE BLOOD COUNT 5.5 K/mm3 (4.0-10.0)
[2016-10-10 06:44] LABS: ANION GAP 4 MEQ/L (8-16); BLOOD UREA NITROGEN 29 MG/DL (7-18); CARBON DIOXIDE LEVEL 29 MEQ/L (21-32); CHLORIDE LEVEL 110 MEQ/L (98-107); CREATININE FOR GFR 0.87 MG/DL (0.55-1.02); GLOMERULAR FILTRATION RATE > 60.0 (>32); GLUCOSE, FASTING 99 MG/DL (83-110); MAGNESIUM LEVEL 2.2 MG/DL (1.8-2.4); POTASSIUM SERUM 4.4 MEQ/L (3.5-5.1); SODIUM LEVEL 143 MEQ/L (136-145)
[2016-10-10] MEDS: HumaLOG INSULIN (NovoLOG) PER UNIT SC SCH ×4 (07:30→20:49)
[2016-10-10] MEDS: LACTOBACILLUS ACIDOPHILUS CAP (BACID) PO SCH ×2 (09:34→20:47)
[2016-10-10] MEDS: amLODIPine 10 MG TAB PO SCH (09:34)
[2016-10-10] MEDS: FUROSEMIDE 40 MG TAB PO SCH (09:34)
[2016-10-10] MEDS: METOPROLOL TART 25 MG TABLET PO SCH ×2 (09:35→20:48)
[2016-10-10] MEDS: LISINOPRIL 20 MG TAB PO SCH ×2 (09:35→20:47)
[2016-10-10 14:00] VITALS: BP 101/69
--- NOTE | 2016-10-10 14:52 | IPNPDOC ---
Date Seen The patient was seen on 10/10/16. Progress Note Hospitalist Progress Note Subjective: The patient is feeling well today; she was sleeping when I arrived but easily awoke Objective: Physical Exam: Vitals: Vital Sign - Last 24 Hours 10/09/16 10/09/16 10/09/16 10/09/16 20:27 20:28 21:00 22:00 Temp 97.9 Pulse 84 84 Resp 17 B/P 123/59 123/59 Pulse Ox 92 O2 Delivery Room Air Room Air 10/10/16 10/10/16 10/10/16 09:34 09:35 09:35 Pulse 72 72 B/P 130/52 130/52 130/52 General: Awake, alert, no acute distress HEENT: Normocephalic, atraumatic, extraocular movements intact CV: Regular rate and rhythm, no murmur Lungs: Clear to Auscultation bilaterally Abd: Soft, nontender, nondistended Extremities: Bilateral venous stasis changes; unchanged erythema of the left funk, with weeping area near the ankle; right funk has a large, prominent growth Neuro: Alert and oriented 3, normal speech Psych: normal mood and affect Labs and Imaging: Laboratory Tests 10/10/16 06:09 Calcium Level 8.0 L, Red Blood Count 3.89 L, Mean Corpuscular Volume 93.4, Mean Corpuscular Hemoglobin 28.3, Mean Corpuscular Hemoglobin Concent 30.2 L, Red Cell Distribution Width 13.8 Assessment and Plan: 81-year-old female with diabetes mellitus type 2, hypertension, chronic diastolic CHF and bilateral venous stasis who was sent for further evaluation of erythema of her left leg by her home health aide. The patient was initially admitted for concern for left lower extremity cellulitis, but while here, she was noted to have new diagnosis A. fib. 1. Left lower extremity cellulitis: There is no evidence of DVT in this leg, and plain films do not show any evidence of osteomyelitis. The patient is afebrile with a normal white count. CRP has almost normalized. We will continue Teflaro at this time. Blood cultures are negative. PT staff is concerned that her shoes are contributing, and I would agree. They are very foul smelling with lots of dirt and grime inside. I have recommended to her that she get a new pair of shoes and always wear socks with her shoes. 2. Hypertension: Continue home Norvasc, beta clayton, BRIDGER inhibitor. 3. Diabetes mellitus type 2: A1c is 6.9. The patient does not report taking any medications at home. We will continue sliding scale insulin while the patient is in-house. 4. New diagnosis A. fib: The patient is currently rate controlled. She appears to slip in and out of A. fib. Continue beta clayton, as well as xarelto. Echocardiogram showed an EF of 65% with no regional wall abnormalities, as well as moderate mitral regurg, as well as a dilated left atrium. 5. Chronic diastolic CHF: Continue home lasix. See above for echocardiogram. 6. Growth on the right lower extremity: I have spoken to Dr. Dumas, who saw the patient in consultation. He tells me that she declined any biopsy or excision by him. 7. Acute kidney injury: Now resolved. 8. Bilateral venous stasis changes: Consult Dr. Wills for telemedicine. DVT prophylaxis: xarelto Dispo: pending Dr. Wills's recommendations; has been cleared by PT to return home; will need home health OT VS, I&O, 24H, [facility] Vital Signs/I&O Vital Signs Date Time Temp Pulse Resp B/P Pulse Ox O2 Delivery O2 Flow Rate FiO2 10/10/16 09:35 72 130/52 10/09/16 22:00 97.9 17 92 Room Air I&O- Last 24 Hours up to 6 AM 10/10/16 06:00 Intake Total 1660 ml Output Total 650 ml Balance 1010 ml Laboratory Data 24H LABS Laboratory Tests 2 10/09/16 17:07: Bedside Glucose (Misc Panel) 107 10/09/16 20:06: Bedside Glucose (Misc Panel) 154H 10/10/16 06:09: Anion Gap 4L, C-Reactive Protein, Quantitative 0.68H, Blood Urea Nitrogen 29H, Creatinine 0.87, Sodium Level 143, Potassium Level 4.4, Chloride Level 110H, Carbon Dioxide Level 29, Calcium Level 8.0L, Glomerular Filtration Rate > 60.0, Magnesium Level 2.2 CBC/BMP Laboratory Tests 10/10/16 06:09 Calcium Level 8.0 L, Red Blood Count 3.89 L, Mean Corpuscular Volume 93.4, Mean Corpuscular Hemoglobin 28.3, Mean Corpuscular Hemoglobin Concent 30.2 L, Red Cell Distribution Width 13.8 Microbiology Microbiology 10/04/16 Blood Culture - Final, Complete NO GROWTH AFTER 5 DAYS JESENIA HERNANDEZ Oct 10, 2016 14:52
[2016-10-10] MEDS: RIVAROXABAN 20 MG TAB (XARELTO) PO SCH (18:10)
[2016-10-10 22:00] VITALS: BP 120/64
[2016-10-11] MEDS: CEFTAROLINE FOSAMIL 300 MG in D5W MINI-BAG PLUS 50 ML IV SCH (05:14)
[2016-10-11 06:00] VITALS: BP 124/70
[2016-10-11 07:15] LABS: MEAN CORPUSCULAR HEMOGLOBIN 29.6 pg (27.0-33.0); MEAN CORPUSCULAR HGB CONC 32.4 g/dl (32.0-36.5); MEAN CORPUSCULAR VOLUME 91.5 fl (80.0-96.0); RED CELL DISTRIBUTION WIDTH 13.7 % (11.5-14.5); WHITE BLOOD COUNT 5.2 K/mm3 (4.0-10.0)
[2016-10-11 07:23] LABS: ANION GAP 4 MEQ/L (8-16); BLOOD UREA NITROGEN 26 MG/DL (7-18); CALCIUM LEVEL 8.5 MG/DL (8.8-10.2); CARBON DIOXIDE LEVEL 33 MEQ/L (21-32); CHLORIDE LEVEL 106 MEQ/L (98-107); CREATININE FOR GFR 0.93 MG/DL (0.55-1.02); GLOMERULAR FILTRATION RATE > 60.0 (>32); GLUCOSE, FASTING 90 MG/DL (83-110); MAGNESIUM LEVEL 2.3 MG/DL (1.8-2.4); POTASSIUM SERUM 4.3 MEQ/L (3.5-5.1); SODIUM LEVEL 143 MEQ/L (136-145)
[2016-10-11] MEDS: HumaLOG INSULIN (NovoLOG) PER UNIT SC SCH ×4 (07:30→20:46)
[2016-10-11] MEDS: LACTOBACILLUS ACIDOPHILUS CAP (BACID) PO SCH ×2 (08:13→20:46)
[2016-10-11 08:14] VITALS: BP 103/62
[2016-10-11] MEDS: FUROSEMIDE 40 MG TAB PO SCH (09:00)
[2016-10-11] MEDS: amLODIPine 10 MG TAB PO SCH (09:00)
[2016-10-11] MEDS: METOPROLOL TART 25 MG TABLET PO SCH ×2 (09:00→20:46)
[2016-10-11] MEDS: LISINOPRIL 20 MG TAB PO SCH ×2 (09:00→20:45)
--- NOTE | 2016-10-11 12:57 | IPNPDOC ---
Date Seen The patient was seen on 10/11/16. Progress Note Hospitalist Progress Note Subjective: The patient is feeling well today; she has no complaints Objective: Physical Exam: Vitals: Vital Sign - Last 24 Hours 10/10/16 10/10/16 10/10/16 10/10/16 14:00 20:47 20:48 22:00 Temp 97.6 97.4 Pulse 61 70 Resp 17 20 B/P 101/69 120/64 120/64 120/64 Pulse Ox 93 92 O2 Delivery Room Air Room Air 10/11/16 10/11/16 10/11/16 10/11/16 06:00 08:14 09:00 09:00 Temp 97.2 Pulse 67 72 72 Resp 18 B/P 124/70 103/62 103/62 103/62 Pulse Ox 90 O2 Delivery Room Air 10/11/16 10/11/16 09:00 09:00 Pulse 72 B/P 103/62 O2 Delivery Room Air General: Awake, alert, no acute distress HEENT: Normocephalic, atraumatic, extraocular movements intact CV: Regular rate and rhythm Lungs: Clear to Auscultation bilaterally, no wheeze Abd: Soft, nontender, nondistended Extremities: Bilateral venous stasis changes; slightly improved erythema of the left funk, with weeping area near the ankle; right funk has a large, prominent growth Neuro: Alert and oriented 3, normal speech Psych: normal mood and affect Labs and Imaging: Laboratory Tests 10/11/16 06:52 Calcium Level 8.5 L, Red Blood Count 3.67 L, Mean Corpuscular Volume 91.5, Mean Corpuscular Hemoglobin 29.6, Mean Corpuscular Hemoglobin Concent 32.4, Red Cell Distribution Width 13.7 Assessment and Plan: 81-year-old female with diabetes mellitus type 2, hypertension, chronic diastolic CHF and bilateral venous stasis who was sent for further evaluation of erythema of her left leg by her home health aide. The patient was initially admitted for concern for left lower extremity cellulitis, but while here, she was noted to have new diagnosis A. fib. 1. Left lower extremity cellulitis: There is no evidence of DVT in this leg, and plain films do not show any evidence of osteomyelitis. The patient is afebrile with a normal white count. CRP has almost normalized. We will continue Teflaro at this time. Blood cultures are negative. PT staff is concerned that her shoes are contributing, and I would agree. They are very foul smelling with lots of dirt and grime inside. I have recommended to her that she get a new pair of shoes and always wear socks with her shoes. 2. Hypertension: Continue home Norvasc, beta clayton, BRIDGER inhibitor. 3. Diabetes mellitus type 2: A1c is 6.9. The patient does not report taking any medications at home. We will continue sliding scale insulin while the patient is in-house. 4. New diagnosis A. fib: The patient is currently rate controlled. She appears to slip in and out of A. fib. Continue beta clayton, as well as xarelto. Echocardiogram showed an EF of 65% with no regional wall abnormalities, as well as moderate mitral regurg, as well as a dilated left atrium. 5. Chronic diastolic CHF: Continue home lasix. See above for echocardiogram. 6. Growth on the right lower extremity: I have spoken to Dr. Dumas, who saw the patient in consultation. He tells me that she declined any biopsy or excision by him. 7. Acute kidney injury: Now resolved. 8. Bilateral venous stasis changes: Consulted Dr. Wills for telemedicine; it is scheduled for Friday at 12:45p. 9. Possible melena: Nursing staff noted reddish color in stool. Patient was recently started on xarelto for new diagnosis Afib. Will check FOBT and monitor Hgb. DVT prophylaxis: xarelto Dispo: pending Dr. Wills's recommendations; has been cleared by PT to return home; will need home health OT VS, I&O, [facility]H, [facility] Vital Signs/I&O Vital Signs Date Time Temp Pulse Resp B/P Pulse Ox O2 Delivery O2 Flow Rate FiO2 10/11/16 09:00 Room Air 10/11/16 09:00 72 103/62 10/11/16 06:00 97.2 18 90 I&O- Last 24 Hours up to 6 AM 10/11/16 05:59 Intake Total 900 ml Output Total 1550 ml Balance -650 ml Laboratory Data 24H LABS Laboratory Tests 2 10/10/16 16:48: Bedside Glucose (Misc Panel) 96 10/10/16 20:34: Bedside Glucose (Misc Panel) 163H 10/11/16 06:52: Anion Gap 4L, C-Reactive Protein, Quantitative 0.56H, Blood Urea Nitrogen 26H, Creatinine 0.93, Sodium Level 143, Potassium Level 4.3, Chloride Level 106, Carbon Dioxide Level 33H, Calcium Level 8.5L, Glomerular Filtration Rate > 60.0 , Magnesium Level 2.3 CBC/BMP Laboratory Tests 10/11/16 06:52 Calcium Level 8.5 L, Red Blood Count 3.67 L, Mean Corpuscular Volume 91.5, Mean Corpuscular Hemoglobin 29.6, Mean Corpuscular Hemoglobin Concent 32.4, Red Cell Distribution Width 13.7 Microbiology Microbiology 10/04/16 Blood Culture - Final, Complete NO GROWTH AFTER 5 DAYS 10/11/16 Gastrointestinal Tract Panel (PCR), Received Pending 10/11/16 Stool Occult Blood (TRAE), Received Pending JESENIA HERNANDEZ Oct 11, 2016 12:57
[2016-10-11 14:00] VITALS: BP 121/69
[2016-10-11] MEDS: RIVAROXABAN 20 MG TAB (XARELTO) PO SCH (17:33)
[2016-10-11] MEDS: BACTRIM 160MG/800MG DS TAB PO SCH (20:46)
[2016-10-11 22:00] VITALS: BP 126/68
[2016-10-12 05:54] LABS: MEAN CORPUSCULAR HEMOGLOBIN 28.8 pg (27.0-33.0); MEAN CORPUSCULAR HGB CONC 30.9 g/dl (32.0-36.5); MEAN CORPUSCULAR VOLUME 93.2 fl (80.0-96.0); RED CELL DISTRIBUTION WIDTH 14.1 % (11.5-14.5); WHITE BLOOD COUNT 5.7 K/mm3 (4.0-10.0)
[2016-10-12 06:00] VITALS: BP 130/65
[2016-10-12 06:07] LABS: ANION GAP 4 MEQ/L (8-16); BLOOD UREA NITROGEN 27 MG/DL (7-18); CALCIUM LEVEL 8.2 MG/DL (8.8-10.2); CARBON DIOXIDE LEVEL 29 MEQ/L (21-32); CHLORIDE LEVEL 108 MEQ/L (98-107); CREATININE FOR GFR 0.78 MG/DL (0.55-1.02); GLOMERULAR FILTRATION RATE > 60.0 (>32); GLUCOSE, FASTING 100 MG/DL (83-110); MAGNESIUM LEVEL 2.2 MG/DL (1.8-2.4); POTASSIUM SERUM 4.7 MEQ/L (3.5-5.1); SODIUM LEVEL 141 MEQ/L (136-145)
[2016-10-12] MEDS: HumaLOG INSULIN (NovoLOG) PER UNIT SC SCH ×4 (07:30→21:00)
[2016-10-12] MEDS: LACTOBACILLUS ACIDOPHILUS CAP (BACID) PO SCH ×2 (09:53→21:33)
[2016-10-12] MEDS: BACTRIM 160MG/800MG DS TAB PO SCH ×2 (09:53→21:33)
[2016-10-12] MEDS: FUROSEMIDE 40 MG TAB PO SCH (09:53)
[2016-10-12] MEDS: amLODIPine 10 MG TAB PO SCH (09:54)
[2016-10-12] MEDS: LISINOPRIL 20 MG TAB PO SCH ×2 (09:54→21:34)
[2016-10-12] MEDS: METOPROLOL TART 25 MG TABLET PO SCH ×2 (09:54→21:34)
--- NOTE | 2016-10-12 12:36 | IPNPDOC ---
Date Seen The patient was seen on 10/12/16. Progress Note Hospitalist Progress Note Subjective: The patient is feeling well today; she has no complaints; nursing noted a bloody bowel movement yesterday Objective: Physical Exam: Vitals: Vital Sign - Last 24 Hours 10/11/16 10/11/16 10/11/16 10/11/16 14:00 20:45 20:46 21:00 Temp 97.4 Pulse 75 67 Resp 18 B/P 121/69 126/68 Pulse Ox 96 O2 Delivery Room Air Room Air 10/11/16 10/12/16 10/12/16 10/12/16 22:00 06:00 09:00 09:54 Temp 98.7 98.5 Pulse 67 65 72 Resp 19 16 B/P 126/68 130/65 118/78 Pulse Ox 94 96 O2 Delivery Room Air Room Air Room Air General: Awake, alert, no acute distress HEENT: Normocephalic, atraumatic, extraocular movements intact CV: Irregularly irregular Lungs: Clear to Auscultation bilaterally Abd: Soft, nontender, nondistended Extremities: Bilateral venous stasis changes; slightly improved erythema of the left funk, with weeping area near the ankle; right funk has a large, prominent growth Neuro: Alert and oriented 3, normal speech Psych: normal mood and affect Labs and Imaging: Laboratory Tests 10/11/16 16:46 10/12/16 05:22 Calcium Level 8.2 L, Red Blood Count 3.61 L, Mean Corpuscular Volume 93.2, Mean Corpuscular Hemoglobin 28.8, Mean Corpuscular Hemoglobin Concent 30.9 L, Red Cell Distribution Width 14.1 Assessment and Plan: 81-year-old female with diabetes mellitus type 2, hypertension, chronic diastolic CHF and bilateral venous stasis who was sent for further evaluation of erythema of her left leg by her home health aide. The patient was initially admitted for concern for left lower extremity cellulitis, but while here, she was noted to have new diagnosis A. fib. 1. Left lower extremity cellulitis: There is no evidence of DVT in this leg, and plain films do not show any evidence of osteomyelitis. The patient is afebrile with a normal white count. CRP has almost normalized. She is now s/p a week of teflaro and has been transitioned to PO bactrim. Blood cultures are negative. PT staff is concerned that her shoes are contributing, and I would agree. They are very foul smelling with lots of dirt and grime inside. I have recommended to her that she get a new pair of shoes and always wear socks with her shoes. 2. Hypertension: Continue home Norvasc, beta clayton, BRIDGER inhibitor. 3. Diabetes mellitus type 2: A1c is 6.9. The patient does not report taking any medications at home. We will continue sliding scale insulin while the patient is in-house. 4. New diagnosis A. fib: The patient is currently rate controlled. She appears to slip in and out of A. fib. Continue beta clayton. Echocardiogram showed an EF of 65% with no regional wall abnormalities, as well as moderate mitral regurg , as well as a dilated left atrium. The patient was initially started on xarelto, but on 10/11, nursing noted that she had a bloody BM. Hgb has trended down 1.5 pts since xarelto was started. Will hold xarelto at this time and monitor Hgb and BMs. Patient has a [id number] score of 6, so if we are able to resume the xarelto later, she would really benefit from anticoagulation. 5. Chronic diastolic CHF: Continue home lasix. See above for echocardiogram. 6. Growth on the right lower extremity: I have spoken to Dr. Dumas, who saw the patient in consultation. He tells me that she declined any biopsy or excision by him. 7. Acute kidney injury: Now resolved. 8. Bilateral venous stasis changes: Consulted Dr. Wills for telemedicine; it is scheduled for Friday at 12:45p. 9. Possible melena: Nursing staff noted reddish color in stool. Patient was recently started on xarelto for new diagnosis Afib. FOBT is positive and Hgb has trended down 1.5 pts since xarelto was started. Will hold xarelto at this time and monitor Hgb and BMs. Patient has a [id number] score of 6, so if we are able to resume the xarelto later, she would really benefit from anticoagulation. DVT prophylaxis: change xarelto to SCDs Dispo: pending Dr. Wills's recommendations and stabilization of blood in BMs; has been cleared by PT to return home; will need home health OT VS, I&O, 24H, [facility] Vital Signs/I&O Vital Signs Date Time Temp Pulse Resp B/P Pulse Ox O2 Delivery O2 Flow Rate FiO2 10/12/16 09:54 72 118/78 10/12/16 09:00 Room Air 10/12/16 06:00 98.5 16 96 I&O- Last 24 Hours up to 6 AM 10/12/16 06:00 Intake Total 770 ml Output Total 900 ml Balance -130 ml Laboratory Data 24H LABS Laboratory Tests 2 10/11/16 16:11: Bedside Glucose (Misc Panel) 133H 10/11/16 20:26: Bedside Glucose (Misc Panel) 125H 10/12/16 05:22: Anion Gap 4L, Blood Urea Nitrogen 27H, Creatinine 0.78, Sodium Level 141, Potassium Level 4.7, Chloride Level 108H, Carbon Dioxide Level 29, Calcium Level 8.2L, Glomerular Filtration Rate > 60.0, Magnesium Level 2.2 CBC/BMP Laboratory Tests 10/11/16 16:46 10/12/16 05:22 Calcium Level 8.2 L, Red Blood Count 3.61 L, Mean Corpuscular Volume 93.2, Mean Corpuscular Hemoglobin 28.8, Mean Corpuscular Hemoglobin Concent 30.9 L, Red Cell Distribution Width 14.1 Microbiology Microbiology 10/04/16 Blood Culture - Final, Complete NO GROWTH AFTER 5 DAYS 10/11/16 Gastrointestinal Tract Panel (PCR) - Final, Complete 10/11/16 Stool Occult Blood (TRAE) - Final, Complete JESENIA HERNANDEZ Oct 12, 2016 12:36
[2016-10-12 14:00] VITALS: BP 104/56
[2016-10-12 22:00] VITALS: BP 132/61
[2016-10-13 06:19] LABS: BASO % 0.5 % (0.0-1.0); EOS # 0.1 K/mm3 (0.0-0.50); EOS % 2.2 % (0.0-3.0); LARGE UNSTAINED CELL # 0.1 K/mm3 (0.0-0.4); LARGE UNSTAINED CELL % 2.2 % (0.0-4.0); LYMPH # 0.8 K/mm3 (1.5-4.5); LYMPH % 14.4 % (24.0-44.0); MEAN CORPUSCULAR HEMOGLOBIN 30.5 pg (27.0-33.0); MEAN CORPUSCULAR HGB CONC 32.6 g/dl (32.0-36.5); MEAN CORPUSCULAR VOLUME 93.4 fl (80.0-96.0); MONO # 0.3 K/mm3 (0.0-0.8); MONO % 6.2 % (0.0-5.0); NEUTROPHILS # 4.1 K/mm3 (1.8-7.7); NEUTROPHILS % 74.6 % (36.0-66.0); PLATELET COUNT, AUTOMATED 228 k/mm3 (150-450); RED CELL DISTRIBUTION WIDTH 14.3 % (11.5-14.5); WHITE BLOOD COUNT 5.5 K/mm3 (4.0-10.0)
[2016-10-13 06:37] LABS: CALCIUM LEVEL 8.3 MG/DL (8.8-10.2); CREATININE FOR GFR 0.95 MG/DL (0.55-1.02); MAGNESIUM LEVEL 2.2 MG/DL (1.8-2.4); POTASSIUM SERUM 4.6 MEQ/L (3.5-5.1)
[2016-10-13] MEDS: HumaLOG INSULIN (NovoLOG) PER UNIT SC SCH ×2 (07:24→12:00)
[2016-10-13] MEDS: LACTOBACILLUS ACIDOPHILUS CAP (BACID) PO SCH ×2 (08:19→21:46)
[2016-10-13] MEDS: amLODIPine 10 MG TAB PO SCH (08:20)
[2016-10-13] MEDS: METOPROLOL TART 25 MG TABLET PO SCH ×2 (08:20→21:46)
[2016-10-13] MEDS: BACTRIM 160MG/800MG DS TAB PO SCH ×2 (08:20→21:45)
[2016-10-13] MEDS: FUROSEMIDE 40 MG TAB PO SCH (08:20)
[2016-10-13] MEDS: LISINOPRIL 20 MG TAB PO SCH ×2 (08:20→21:46)
--- NOTE | 2016-10-13 14:41 | IPNPDOC ---
Date Seen The patient was seen on 10/13/16. Progress Note Hospitalist Progress Note Subjective: The patient is feeling well today; she has no complaints; the patient is unsure if she has had any blood in her stool and the overnight nursing staff did not comment on it Objective: Physical Exam: Vitals: Vital Sign - Last 24 Hours 10/12/16 10/12/16 10/12/16 10/12/16 21:00 21:34 21:34 22:00 Temp 99.3 Pulse 75 75 Resp 18 B/P 132/61 132/61 Pulse Ox 93 O2 Delivery Room Air Room Air 10/13/16 10/13/16 10/13/16 10/13/16 08:20 08:20 08:20 09:00 Pulse 78 78 B/P 115/76 115/76 115/76 O2 Delivery Room Air General: Awake, alert, no acute distress HEENT: Normocephalic, atraumatic, extraocular movements intact CV: Irregularly irregular, no murmur Lungs: Clear to Auscultation bilaterally, no wheeze Abd: Soft, nontender, nondistended Extremities: Bilateral venous stasis changes; slightly improved erythema of the left funk, with weeping area near the ankle; right funk has a large, prominent growth Neuro: Alert and oriented 3, normal speech Psych: normal mood and affect Labs and Imaging: Laboratory Tests 10/13/16 05:37 Calcium Level 8.3 L, Red Blood Count 3.53 L, Mean Corpuscular Volume 93.4, Mean Corpuscular Hemoglobin 30.5, Mean Corpuscular Hemoglobin Concent 32.6, Red Cell Distribution Width 14.3, Neutrophils (%) (Auto) 74.6 H, Lymphocytes (%) (Auto) 14.4 L, Monocytes (%) (Auto) 6.2 H, Eosinophils (%) (Auto) 2.2, Basophils (%) ( Auto) 0.5, Neutrophils # (Auto) 4.1, Lymphocytes # (Auto) 0.8 L, Monocytes # ( Auto) 0.3, Eosinophils # (Auto) 0.1, Basophils # (Auto) 0.0 Assessment and Plan: 81-year-old female with diabetes mellitus type 2, hypertension, chronic diastolic CHF and bilateral venous stasis who was sent for further evaluation of erythema of her left leg by her home health aide. The patient was initially admitted for concern for left lower extremity cellulitis, but while here, she was noted to have new diagnosis A. fib. 1. Left lower extremity cellulitis: There is no evidence of DVT in this leg, and plain films do not show any evidence of osteomyelitis. The patient is afebrile with a normal white count. CRP has almost normalized. She is now s/p a week of teflaro and has been transitioned to PO bactrim. Blood cultures are negative. PT staff is concerned that her shoes are contributing, and I would agree. They are very foul smelling with lots of dirt and grime inside. I have recommended to her that she get a new pair of shoes and always wear socks with her shoes. 2. Hypertension: Continue home Norvasc, beta clayton, BRIDGER inhibitor. 3. Diabetes mellitus type 2: A1c is 6.9. The patient does not report taking any medications at home. We will continue sliding scale insulin while the patient is in-house. 4. New diagnosis A. fib: The patient is currently rate controlled. She appears to slip in and out of A. fib. Continue beta clayton. Echocardiogram showed an EF of 65% with no regional wall abnormalities, as well as moderate mitral regurg , as well as a dilated left atrium. The patient was initially started on xarelto, but on 10/11, nursing noted that she had a bloody BM. Hgb has trended down 1.5 pts since xarelto was started. Holding xarelto at this time and monitoring Hgb and BMs. Patient has a [id number] score of 6, so if we are able to resume the xarelto later, she would really benefit from anticoagulation. Hgb today is stable. 5. Chronic diastolic CHF: Continue home lasix. See above for echocardiogram. 6. Growth on the right lower extremity: I have spoken to Dr. Dumas, who saw the patient in consultation. He tells me that she declined any biopsy or excision by him. 7. Acute kidney injury: Now resolved. 8. Bilateral venous stasis changes: Consulted Dr. Wills for telemedicine; it is scheduled for Friday at 12:45p. 9. Possible melena: Nursing staff noted reddish color in stool. Patient was recently started on xarelto for new diagnosis Afib. FOBT is positive and Hgb has trended down 1.5 pts since xarelto was started. Will hold xarelto at this time and monitor Hgb and BMs. Patient has a [id number] score of 6, so if we are able to resume the xarelto later, she would really benefit from anticoagulation. Hgb today is stable. DVT prophylaxis: SCDs Dispo: pending Dr. Wills's recommendations and stabilization of blood in BMs; has been cleared by PT to return home; will need home health OT VS, I&O, 24H, Jacquelin Vital Signs/I&O Vital Signs Date Time Temp Pulse Resp B/P Pulse Ox O2 Delivery O2 Flow Rate FiO2 10/13/16 09:00 Room Air 10/13/16 08:20 78 115/76 10/12/16 22:00 99.3 18 93 I&O- Last 24 Hours up to 6 AM 10/13/16 05:59 Intake Total 1440 ml Output Total 0 ml Balance 1440 ml Laboratory Data 24H LABS Laboratory Tests 2 10/12/16 16:23: Bedside Glucose (Misc Panel) 147H 10/12/16 20:54: Bedside Glucose (Misc Panel) 147H 10/13/16 05:37: Anion Gap 5L, White Blood Count 5.5, Red Blood Count 3.53L, Hemoglobin 10.8L, Hematocrit 33.0L, Mean Corpuscular Volume 93.4, Mean Corpuscular Hemoglobin 30.5 , Mean Corpuscular Hemoglobin Concent 32.6, Red Cell Distribution Width 14.3, Platelet Count 228, Neutrophils (%) (Auto) 74.6H, Lymphocytes (%) (Auto) 14.4L, Monocytes (%) (Auto) 6.2H, Eosinophils (%) (Auto) 2.2, Basophils (%) (Auto) 0.5 , Neutrophils # (Auto) 4.1, Lymphocytes # (Auto) 0.8L, Monocytes # (Auto) 0.3, Eosinophils # (Auto) 0.1, Basophils # (Auto) 0.0, C-Reactive Protein, Quantitative 0.31H, Blood Urea Nitrogen 26H, Creatinine 0.95, Sodium Level 140, Potassium Level 4.6, Chloride Level 106, Carbon Dioxide Level 29, Calcium Level 8.3L, Glomerular Filtration Rate 60.0, Large Unclassified Cells # 0.1, Large Unclassified Cells % 2.2, Magnesium Level 2.2 CBC/BMP Laboratory Tests 10/13/16 05:37 Calcium Level 8.3 L, Red Blood Count 3.53 L, Mean Corpuscular Volume 93.4, Mean Corpuscular Hemoglobin 30.5, Mean Corpuscular Hemoglobin Concent 32.6, Red Cell Distribution Width 14.3, Neutrophils (%) (Auto) 74.6 H, Lymphocytes (%) (Auto) 14.4 L, Monocytes (%) (Auto) 6.2 H, Eosinophils (%) (Auto) 2.2, Basophils (%) ( Auto) 0.5, Neutrophils # (Auto) 4.1, Lymphocytes # (Auto) 0.8 L, Monocytes # ( Auto) 0.3, Eosinophils # (Auto) 0.1, Basophils # (Auto) 0.0 Microbiology Microbiology 10/04/16 Blood Culture - Final, Complete NO GROWTH AFTER 5 DAYS 10/11/16 Gastrointestinal Tract Panel (PCR) - Final, Complete 10/11/16 Stool Occult Blood (TRAE) - Final, Complete JESENIA HERNANDEZ Oct 13, 2016 14:41
[2016-10-13 20:48] VITALS: BP 118/56
[2016-10-14 05:57] LABS: BASO % 0.6 % (0.0-1.0); EOS # 0.1 K/mm3 (0.0-0.50); EOS % 2.2 % (0.0-3.0); LARGE UNSTAINED CELL # 0.1 K/mm3 (0.0-0.4); LARGE UNSTAINED CELL % 1.7 % (0.0-4.0); LYMPH # 0.8 K/mm3 (1.5-4.5); LYMPH % 13.4 % (24.0-44.0); MEAN CORPUSCULAR HEMOGLOBIN 29.6 pg (27.0-33.0); MEAN CORPUSCULAR HGB CONC 31.7 g/dl (32.0-36.5); MEAN CORPUSCULAR VOLUME 93.1 fl (80.0-96.0); MONO # 0.3 K/mm3 (0.0-0.8); MONO % 6.5 % (0.0-5.0); NEUTROPHILS # 3.8 K/mm3 (1.8-7.7); NEUTROPHILS % 75.6 % (36.0-66.0); PLATELET COUNT, AUTOMATED 239 k/mm3 (150-450); RED CELL DISTRIBUTION WIDTH 14.5 % (11.5-14.5)
[2016-10-14 06:00] VITALS: BP 121/58
[2016-10-14 06:12] LABS: ANION GAP 5 MEQ/L (8-16); BLOOD UREA NITROGEN 25 MG/DL (7-18); CALCIUM LEVEL 8.1 MG/DL (8.8-10.2); CARBON DIOXIDE LEVEL 28 MEQ/L (21-32); CHLORIDE LEVEL 105 MEQ/L (98-107); CREATININE FOR GFR 1.04 MG/DL (0.55-1.02); GLUCOSE, FASTING 104 MG/DL (83-110); MAGNESIUM LEVEL 2.2 MG/DL (1.8-2.4); POTASSIUM SERUM 4.6 MEQ/L (3.5-5.1); SODIUM LEVEL 138 MEQ/L (136-145)
[2016-10-14] MEDS: FUROSEMIDE 40 MG TAB PO SCH (08:06)
[2016-10-14] MEDS: LACTOBACILLUS ACIDOPHILUS CAP (BACID) PO SCH ×2 (08:06→21:26)
[2016-10-14] MEDS: METOPROLOL TART 25 MG TABLET PO SCH ×2 (08:06→21:00)
[2016-10-14] MEDS: LISINOPRIL 20 MG TAB PO SCH ×2 (08:07→21:00)
[2016-10-14] MEDS: BACTRIM 160MG/800MG DS TAB PO SCH (08:07)
[2016-10-14] MEDS: amLODIPine 10 MG TAB PO SCH (08:07)
[2016-10-14] MEDS: EUCERIN 120GM CREAM TOP SCH (09:00)
[2016-10-14] MEDS ORDERED: ISOVUE-370 76% 100ML VIAL (Q9967) As Ordered ONE (13:52)
[2016-10-14 14:00] VITALS: BP 150/65
[2016-10-14] MEDS ORDERED: DIAPER RELIEF OINT (DESITIN) 60GM TOP PRN (14:00)
--- NOTE | 2016-10-14 14:57 | CR ---
DATE OF CONSULTATION: 10/14/2016 REASON FOR CONSULTATION: This is regarding recent cellulitis of the left lower extremity with bilateral venous stasis disease. HISTORY OF PRESENT ILLNESS: An 81-year-old female who lives alone in her own apartment, able to shop on a daily basis, recently developed pain and redness involving her left lower extremity, presented to the emergency room and was admitted. She was placed on IV antibiotics Teflaro and her erythema improved. At present, she is afebrile with stable vital signs and a normal white count. PHYSICAL EXAMINATION: On physical examination, the left lower extremity shows chronic nonpitting edema with mild erythema. On the medial inframalleolar area, there are varicosities without an open wound. On the left heel, there is a stage II pressure injury which measures 3.0 cm x 3.0 cm. This wound base shows granulation tissue with a superficial fibrin coating. The drainage is serosanguineous, minimal to moderate without odor. There are no deep structures seen within the wound base. The wound edges are fixed and the periwound shows no erythema, maceration or ischemic change. On the right lower extremity, there is chronic nonpitting edema with a hyperkeratotic skin changes and no open wounds. On the lateral supramalleolar area, there is an exfoliative lesion which measures 4.0 cm x 2.0 cm. This is raised, dry with horn-like skin that the patient states has been there for many years. She refused biopsy as it does not bother her. There is no drainage seen and the periwound shows no erythema, maceration or ischemic change. On the buttocks area, there is an erythematous rash consistent with a dermatitis. This blanches with digital pressure and returns to the erythematous color. There is no excoriation and no drainage seen. The rash is bilateral involving the superior buttock fold and below the coccyx. The differential diagnosis of the buttocks lesion is incontinence dermatitis versus a fungal infection versus a skin bacterial infection. The patient, at present, does not have adequate footwear and the nurses have indicated that they are in the process of obtaining this. She is in need of podiatric care for her toenails which are quite long. As part of the workup, nutritional evaluation including total protein and albumin should be used as baseline markers and consideration for supplemental Glucerna and/or Zan to be added to her diet. A heel float boot is indicated for the left lower extremity heel wound and a means of offloading this area which is the treatment of choice This should be obtained before the patient is discharged and this is important in the treatment to offload and avoid further deterioration in that area. No indication for antibiotic therapy at this point. Postoperative shoe and/or cast shoe should be avoided as these are difficult to walk in. The patient does not have a bulky dressing and this type of shoe may actually potentiate a fall. The left heel can be covered with a foam dressing and heel float boot while the patient is in bed. The patient should be in bed at night and not sleep in a chair as a means to prevent gravitational edema. An MRA has been ordered to evaluate the arterial and peripheral vascular vessels. If there are no stenotic lesions, a two-layer compression wrap and/or an Unna Boot can be applied to both right and left lower extremities. These remain in place for one week but do require removal. If there are any abnormalities on the CT angiogram showing critical stenotic lesions then compression wraps would be contraindicated. We will arrange to have a followup at the clinic if the patient wishes to pursue our services. TU
--- NOTE | 2016-10-14 15:38 | IPNPDOC ---
Date Seen The patient was seen on 10/14/16. Progress Note Hospitalist Progress Note Subjective: The patient is feeling well today; she has no complaints; the patient and nurses states that has not stooled to know if there is blood in her stool or not Objective: Physical Exam: Vitals: Vital Sign - Last 24 Hours 10/13/16 10/13/16 10/14/16 10/14/16 20:48 21:46 06:00 08:06 Temp 98.7 97.5 Pulse 65 74 68 Resp 19 21 B/P 118/56 118/56 121/58 122/63 Pulse Ox 92 O2 Delivery Room Air Room Air 10/14/16 10/14/16 09:12 14:00 Temp 97.0 Pulse 60 Resp 18 B/P 150/65 Pulse Ox 94 O2 Delivery Room Air Room Air General: Awake, alert, no acute distress HEENT: Normocephalic, atraumatic, extraocular movements intact CV: Irregularly irregular Lungs: Clear to Auscultation bilaterally Abd: Soft, nontender, nondistended Extremities: Bilateral venous stasis changes; slightly improved erythema of the left funk, with weeping area near the ankle; right funk has a large, prominent growth Neuro: Alert and oriented 3, normal speech Psych: normal mood and affect Labs and Imaging: Laboratory Tests 10/14/16 05:36 Calcium Level 8.1 L, Red Blood Count 3.42 L, Mean Corpuscular Volume 93.1, Mean Corpuscular Hemoglobin 29.6, Mean Corpuscular Hemoglobin Concent 31.7 L, Red Cell Distribution Width 14.5, Neutrophils (%) (Auto) 75.6 H, Lymphocytes (%) ( Auto) 13.4 L, Monocytes (%) (Auto) 6.5 H, Eosinophils (%) (Auto) 2.2, Basophils (%) (Auto) 0.6, Neutrophils # (Auto) 3.8, Lymphocytes # (Auto) 0.8 L, Monocytes # (Auto) 0.3, Eosinophils # (Auto) 0.1, Basophils # (Auto) 0.0 Assessment and Plan: 81-year-old female with diabetes mellitus type 2, hypertension, chronic diastolic CHF and bilateral venous stasis who was sent for further evaluation of erythema of her left leg by her home health aide. The patient was initially admitted for concern for left lower extremity cellulitis, but while here, she was noted to have new diagnosis A. fib. 1. Left lower extremity cellulitis: There is no evidence of DVT in this leg, and plain films do not show any evidence of osteomyelitis. The patient is afebrile with a normal white count. CRP has almost normalized. She is now s/p 10 days of teflaro and and then PO bactrim. We will stop abx at this time. Blood cultures are negative. PT staff is concerned that her shoes are contributing, and I would agree. They are very foul smelling with lots of dirt and grime inside. I have recommended to her that she get a new pair of shoes and always wear socks with her shoes. 2. Hypertension: Continue home Norvasc, beta clayton, BRIDGER inhibitor. 3. Diabetes mellitus type 2: A1c is 6.9. The patient does not report taking any medications at home. Fingersticks here have been controlled. 4. New diagnosis A. fib: The patient is currently rate controlled. She appears to slip in and out of A. fib. Continue beta clayton. Echocardiogram showed an EF of 65% with no regional wall abnormalities, as well as moderate mitral regurg , as well as a dilated left atrium. The patient was initially started on xarelto, but on 10/11, nursing noted that she had a bloody BM. Hgb has trended down 1.5 pts since xarelto was started. Held xarelto over the weekend and monitored Hgb and BMs. She has not had any other known bloody BMs, and her Hgb has remained stable. Patient has a [id number] score of 6, so we will attempt to resume the xarelto, as she would really benefit from anticoagulation. Continue to monitor. 5. Chronic diastolic CHF: Continue home lasix. See above for echocardiogram. 6. Growth on the right lower extremity: I have spoken to Dr. Dumas, who saw the patient in consultation. He tells me that she declined any biopsy or excision by him. 7. Acute kidney injury: Now resolved. 8. Bilateral venous stasis changes: Dr. Wills to see today. Will check CTA with runoff and albumin/protein, as well as follow up his further recs after formal evaluation. 9. Possible melena: Nursing staff noted reddish color in stool. Patient was recently started on xarelto for new diagnosis Afib. FOBT is positive and Hgb has trended down 1.5 pts since xarelto was started. Held xarelto over the weekend and monitored Hgb and BMs. She has not had any other known bloody BMs, and her Hgb has remained stable. Patient has a [id number] score of 6, so we will attempt to resume the xarelto, as she would really benefit from anticoagulation. Continue to monitor. DVT prophylaxis: SCDs Dispo: pending Dr. Wills's recommendations and stabilization of blood in BMs; has been cleared by PT to return home; will need home health OT; hopefully she can go home tomorrow and follow up with Dr. Wills for continued care VS, I&O, 24H, Fishbone Vital Signs/I&O Vital Signs Date Time Temp Pulse Resp B/P Pulse Ox O2 Delivery O2 Flow Rate FiO2 10/14/16 14:00 97.0 60 18 150/65 94 Room Air I&O- Last 24 Hours up to 6 AM 10/14/16 06:00 Intake Total 1660 ml Output Total 400 ml Balance 1260 ml Laboratory Data 24H LABS Laboratory Tests 2 10/14/16 05:36: Anion Gap 5L, White Blood Count 5.0, Red Blood Count 3.42L, Hemoglobin 10.1L, Hematocrit 31.9L, Mean Corpuscular Volume 93.1, Mean Corpuscular Hemoglobin 29.6 , Mean Corpuscular Hemoglobin Concent 31.7L, Red Cell Distribution Width 14.5, Platelet Count 239, Neutrophils (%) (Auto) 75.6H, Lymphocytes (%) (Auto) 13.4L, Monocytes (%) (Auto) 6.5H, Eosinophils (%) (Auto) 2.2, Basophils (%) (Auto) 0.6 , Neutrophils # (Auto) 3.8, Lymphocytes # (Auto) 0.8L, Monocytes # (Auto) 0.3, Eosinophils # (Auto) 0.1, Basophils # (Auto) 0.0, C-Reactive Protein, Quantitative < 0.30, Blood Urea Nitrogen 25H, Creatinine 1.04H, Sodium Level 138 , Potassium Level 4.6, Chloride Level 105, Carbon Dioxide Level 28, Calcium Level 8.1L, Glomerular Filtration Rate 54.0, Large Unclassified Cells # 0.1, Large Unclassified Cells % 1.7, Magnesium Level 2.2 CBC/BMP Laboratory Tests 10/14/16 05:36 Calcium Level 8.1 L, Red Blood Count 3.42 L, Mean Corpuscular Volume 93.1, Mean Corpuscular Hemoglobin 29.6, Mean Corpuscular Hemoglobin Concent 31.7 L, Red Cell Distribution Width 14.5, Neutrophils (%) (Auto) 75.6 H, Lymphocytes (%) ( Auto) 13.4 L, Monocytes (%) (Auto) 6.5 H, Eosinophils (%) (Auto) 2.2, Basophils (%) (Auto) 0.6, Neutrophils # (Auto) 3.8, Lymphocytes # (Auto) 0.8 L, Monocytes # (Auto) 0.3, Eosinophils # (Auto) 0.1, Basophils # (Auto) 0.0 Microbiology Microbiology 10/04/16 Blood Culture - Final, Complete NO GROWTH AFTER 5 DAYS 10/11/16 Gastrointestinal Tract Panel (PCR) - Final, Complete 10/11/16 Stool Occult Blood (TRAE) - Final, Complete JESENIA HERNANDEZ Oct 14, 2016 15:38
[2016-10-14] MEDS: RIVAROXABAN 20 MG TAB (XARELTO) PO SCH (17:10)
--- NOTE | 2016-10-14 17:10 | REP ---
CT ANGIOGRAM ABDOMINAL AORTA AND BILATERAL LOWER EXTREMITIES: CT angiogram abdominal aorta and bilateral lower extremities is performed following the intravenous administration of 100 mL Isovue-370. Sagittal, coronal and MIP reconstruction images are performed. Comparison made with prior CT abdomen and pelvis 09/30/2012. There are small bilateral pleural effusions with bibasilar atelectasis/infiltrate. There is a hiatal hernia which is moderate in size. The spleen, adrenals, pancreas, and liver appear unremarkable. There are left renal cysts which appear similar to the prior exam. I do not see significant adenopathy. There is no free air or free fluid. There is no evidence of bowel wall thickening with scattered diverticula of the colon. Large pelvic mass is again seen, essentially unchanged since the prior exam. 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 Mild scattered atherosclerotic calcifications are seen of the abdominal aorta with mild diffuse narrowing. There is mild narrowing of the origins of the mesenteric arteries and renal arteries. Mild scattered atherosclerotic calcifications are seen of the common iliac, internal iliac, and external iliac arteries bilaterally, as well as the common femoral arteries and superficial femoral arteries with mild scattered areas of narrowing no but no significant stenosis. There is no stenosis of the popliteal arteries. Right anterior tibial artery is patent proximally. It tapers as it courses distally and visualization is lost in the distal third of the calf. Common peroneal trunk on the right is patent. Posterior tibial artery is patent and also tapers as it courses distally. Visualization is lost just above the ankle. Peroneal artery tapers as it courses distally and visualization is lost in the distal third of the calf. On the left anterior tibial artery is visualized and is patent into the foot. Common peroneal trunk is patent. Left posterior tibial artery is patent up to the distal calf. Peroneal artery is patent into the foot. IMPRESSION: No proximal stenoses in the lower extremities bilaterally. The three calf arteries on the right are likely occluded in the distal calf. There is two vessel runoff into the left foot. There are small bilateral pleural effusions with adjacent bibasilar atelectasis/infiltrate. Hiatal hernia. Large pelvic mass. Please note that the superior portion of this mass contains air which may represent an area of necrosis. Signed by Alan Uribe MD 10/14/2016 08:13 P
[2016-10-14 22:00] VITALS: BP 110/58
[2016-10-15 06:00] VITALS: BP 138/67
[2016-10-15 07:06] LABS: BASO % 0.7 % (0.0-1.0); EOS # 0.1 K/mm3 (0.0-0.50); EOS % 1.7 % (0.0-3.0); LARGE UNSTAINED CELL # 0.1 K/mm3 (0.0-0.4); LARGE UNSTAINED CELL % 1.6 % (0.0-4.0); LYMPH # 0.8 K/mm3 (1.5-4.5); LYMPH % 14.1 % (24.0-44.0); MEAN CORPUSCULAR HEMOGLOBIN 29.1 pg (27.0-33.0); MEAN CORPUSCULAR HGB CONC 31.4 g/dl (32.0-36.5); MEAN CORPUSCULAR VOLUME 92.5 fl (80.0-96.0); MONO # 0.4 K/mm3 (0.0-0.8); MONO % 7.3 % (0.0-5.0); NEUTROPHILS # 3.7 K/mm3 (1.8-7.7); NEUTROPHILS % 74.6 % (36.0-66.0); PLATELET COUNT, AUTOMATED 246 k/mm3 (150-450); RED CELL DISTRIBUTION WIDTH 14.6 % (11.5-14.5)
[2016-10-15 07:28] LABS: ALBUMIN 2.8 GM/DL (3.2-5.2); ALBUMIN/GLOBULIN RATIO 0.76 (1.00-1.93); ALKALINE PHOSPHATASE 173 U/L (45-117); ALT/SGPT 38 U/L (12-78); ANION GAP 6 MEQ/L (8-16); AST/SGOT 24 U/L (15-37); BILIRUBIN,TOTAL 0.4 MG/DL (0.2-1.0); BLOOD UREA NITROGEN 26 MG/DL (7-18); CARBON DIOXIDE LEVEL 28 MEQ/L (21-32); CHLORIDE LEVEL 104 MEQ/L (98-107); CREATININE FOR GFR 1.12 MG/DL (0.55-1.02); GLOMERULAR FILTRATION RATE 49.6 (>32); GLUCOSE, FASTING 92 MG/DL (83-110); MAGNESIUM LEVEL 2.3 MG/DL (1.8-2.4); POTASSIUM SERUM 4.8 MEQ/L (3.5-5.1); SODIUM LEVEL 138 MEQ/L (136-145); TOTAL PROTEIN 6.5 GM/DL (6.4-8.2)
[2016-10-15] MEDS: EUCERIN 120GM CREAM TOP SCH (09:27)
[2016-10-15] MEDS: LACTOBACILLUS ACIDOPHILUS CAP (BACID) PO SCH ×2 (09:28→21:28)
[2016-10-15] MEDS: METOPROLOL TART 25 MG TABLET PO SCH ×2 (09:28→21:00)
[2016-10-15] MEDS: amLODIPine 10 MG TAB PO SCH (09:28)
[2016-10-15] MEDS: LISINOPRIL 20 MG TAB PO SCH ×2 (09:28→21:00)
[2016-10-15] MEDS: FUROSEMIDE 40 MG TAB PO SCH (09:28)
[2016-10-15 14:00] VITALS: BP 115/57
--- NOTE | 2016-10-15 15:06 | IPN ---
DATE: 10/15/2016 81-year-old female seen at bedside. No overnight issues. No abdominal pain. No chest pain, nausea or vomiting. OBJECTIVE: Temperature is 97.6, pulse 81, respiratory rate 18, BP 138/67, SPO2 is 91% on room air. General: The patient appears to be in no acute distress. Is alert, oriented. HEENT: Unremarkable. Lungs: Clear. Heart: Regular rate and rhythm. Abdomen: Soft. Extremities: No edema or calf tenderness. Her left leg however is wrapped currently with dressing; has already been dressed per Dr. Wills. White count 5.0, hemoglobin 10.7, platelets are 246, sodium 138, potassium 4.8, chloride 104, bicarb 28, anion gap 6, BUN 26, creatinine 1.12, glucose is 92, magnesium 2.33, total bilirubin is 0.4, AST 24, ALT 30, alkaline phosphatase 173. C-reactive protein less than 0.30. ASSESSMENT/PLAN: 1. Left lower extremity cellulitis. No evidence of deep venous thrombosis (DVT). Plain films do not suggest any evidence of osteomyelitis. She remains afebrile. CRP is normal. She is currently on by mouth (p.o.) Bactrim. There was an issue physical therapy was concerned about; safety issues which Dr. Wills had made some recommendations. I did request that they clarify that further. 2. Hypertension. Continue on Norvasc, beta-clayton and angiotensin-converting enzyme (BRIDGER) inhibitor. 3. Type 2 diabetes. Hemoglobin A1c is 6.9. Continue fingersticks and sliding scale coverage. 4. New diagnosis of atrial fibrillation. She does have a CONNER-VASc score of 6. Currently on Xarelto. 5. Congestive heart failure (CHF), chronic and diastolic in nature, stable. 6. Right lower extremity skin lesion, which she denied having an excisional biopsy. This can be followed up outpatient with Dr. Olivarez her primary care provider. 7. Acute kidney injury, resolved. 8. Bilateral venous stasis changes. Will need to follow up with Dr. Wills. CT angio runoff has been performed. 9. Possible melena. No further hematochezia or melena demonstrated. 10. Deep venous thrombosis (DVT) prophylaxis, currently on Xarelto. 11. Pelvic mass demonstrated on CT of the abdomen and pelvis. 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 I did reach out to her primary care provider Dr. Olivarez and made sure he was aware and is going to be followed up as outpatient. This has been present since September 2012. She currently has no vaginal bleeding. DISPOSITION: Anticipate home discharge in the next 24-48 hours pending physical therapy and Patient and Family Services (PFS) evaluation.
[2016-10-15] MEDS: RIVAROXABAN 20 MG TAB (XARELTO) PO SCH (17:31)
[2016-10-15] MEDS: DIAPER RELIEF OINT (DESITIN) 60GM TOP PRN (21:46)
[2016-10-15 22:00] VITALS: BP 117/58
[2016-10-16 06:00] VITALS: BP 113/55
[2016-10-16 07:19] LABS: BASO % 0.9 % (0.0-1.0); EOS # 0.1 K/mm3 (0.0-0.50); EOS % 3.2 % (0.0-3.0); LARGE UNSTAINED CELL # 0.1 K/mm3 (0.0-0.4); LARGE UNSTAINED CELL % 2.5 % (0.0-4.0); LYMPH % 23.2 % (24.0-44.0); MEAN CORPUSCULAR HEMOGLOBIN 30.9 pg (27.0-33.0); MEAN CORPUSCULAR VOLUME 93.7 fl (80.0-96.0); MONO # 0.4 K/mm3 (0.0-0.8); MONO % 9.5 % (0.0-5.0); NEUTROPHILS # 2.6 K/mm3 (1.8-7.7); NEUTROPHILS % 60.7 % (36.0-66.0); PLATELET COUNT, AUTOMATED 258 k/mm3 (150-450); RED CELL DISTRIBUTION WIDTH 14.9 % (11.5-14.5); WHITE BLOOD COUNT 4.3 K/mm3 (4.0-10.0)
[2016-10-16 07:45] LABS: CALCIUM LEVEL 8.5 MG/DL (8.8-10.2); CREATININE FOR GFR 1.13 MG/DL (0.55-1.02); GLOMERULAR FILTRATION RATE 49.1 (>32); MAGNESIUM LEVEL 2.3 MG/DL (1.8-2.4); POTASSIUM SERUM 4.7 MEQ/L (3.5-5.1)
[2016-10-16] MEDS: LACTOBACILLUS ACIDOPHILUS CAP (BACID) PO SCH ×2 (09:01→20:34)
[2016-10-16] MEDS: amLODIPine 10 MG TAB PO SCH (09:02)
[2016-10-16] MEDS: FUROSEMIDE 40 MG TAB PO SCH (09:02)
[2016-10-16] MEDS: METOPROLOL TART 25 MG TABLET PO SCH ×2 (09:03→20:34)
[2016-10-16] MEDS: EUCERIN 120GM CREAM TOP SCH (09:04)
[2016-10-16] MEDS: LISINOPRIL 20 MG TAB PO SCH ×2 (09:04→20:35)
[2016-10-16] MEDS ORDERED: XARE20TA PO (11:09)
[2016-10-16] MEDS ORDERED: DESITIN TOP (11:09)
[2016-10-16] MEDS ORDERED: RISATAB3 PO (11:09)
[2016-10-16] MEDS ORDERED: EUCECRE3 TOP (11:09)
[2016-10-16 14:00] VITALS: BP 110/56
--- NOTE | 2016-10-16 16:24 | IPN ---
DATE: 10/16/2016 An 81-year-old female seen at bedside. She does appear to be doing well with no specific complaints today. She is tolerating her meal. No chest pain, nausea, or vomiting. No shortness of breath or productive sputum. OBJECTIVE: VITAL SIGNS: Temperature is 98.7, pulse 65, respiratory rate 18, blood pressure 110/56, SPO2 is 96% on room air. GENERAL: The patient appears to be in no acute distress, is alert, oriented and pleasant. HEENT: Unremarkable. LUNGS: Clear. HEART: Regular rate and rhythm. ABDOMEN: Soft. EXTREMITIES: No edema. Her wound dressings are in place on the left lower extremity. LABORATORY DATA: White count 4.3, hemoglobin 11.3, and platelets are 258,000. Sodium 136, potassium 4.7, chloride 103, bicarbonate 29, anion gap 4, BUN is 25, creatinine 1.13, glucose is 89, CRP is 0.30. ASSESSMENT AND PLAN: 1. Left lower extremity cellulitis. No evidence of deep vein thrombosis (DVT). C-reactive protein (CRP) is normal. She continues on oral Bactrim. Appreciate Dr. Wills's recommendations and currently looking for a way to safely discharge her. Apparently, [facility] is unavailable until Friday to assist with dressing changes so we will likely need to make her fpc until she can be safely discharged. From a medical standpoint, she appears to be stable otherwise. 2. Hypertension. Continue Norvasc, beta clayton, angiotensin-converting enzyme (BRIDGER) inhibitor. 3. Diabetes, type 2. Hemoglobin A1c 6.9. Continue with fingersticks and sliding scale coverage. 4. New diagnosis of atrial fibrillation, CHADS-VASc score of 6. Continue Xarelto. 5. Congestive heart failure (CHF), chronic with diastolic dysfunction. She does appear to be compensated. 6. Right lower extremity skin lesion. Denied having excisional biopsy, followup outpatient with Dr. Olivarez. 7. Acute kidney injury, resolved. 8. Bilateral venous stasis changes. Followup per Dr. Wills. 9. Possible melena, resolved. Hemoglobin and hematocrit are stable. No hematochezia or further melena. 11. DVT prophylaxis. Currently on Xarelto. 12. Pelvic mass demonstrated on CT scan of the abdomen and pelvis. I did speak with Dr. Olivarez who will follow this up as an outpatient. She does not have any drop in her hemoglobin and hematocrit and she is hemodynamically stable. This appears to be relatively unchanged since September of 2012. DISPOSITION: Anticipate home discharge once she does have the availability of public health and until then we will make her fpc level.
[2016-10-16] MEDS: RIVAROXABAN 20 MG TAB (XARELTO) PO SCH (17:41)
[2016-10-16 22:00] VITALS: BP 125/58
[2016-10-17] MEDS: DIAPER RELIEF OINT (DESITIN) 60GM TOP PRN (01:25)
[2016-10-17 06:00] VITALS: BP 145/75
[2016-10-17 06:55] LABS: BASO % 1.1 % (0.0-1.0); EOS # 0.2 K/mm3 (0.0-0.50); EOS % 4.7 % (0.0-3.0); LARGE UNSTAINED CELL # 0.1 K/mm3 (0.0-0.4); LARGE UNSTAINED CELL % 2.3 % (0.0-4.0); LYMPH # 0.9 K/mm3 (1.5-4.5); MEAN CORPUSCULAR HEMOGLOBIN 29.3 pg (27.0-33.0); MEAN CORPUSCULAR HGB CONC 31.6 g/dl (32.0-36.5); MEAN CORPUSCULAR VOLUME 92.7 fl (80.0-96.0); MONO # 0.3 K/mm3 (0.0-0.8); MONO % 9.5 % (0.0-5.0); NEUTROPHILS % 57.4 % (36.0-66.0); PLATELET COUNT, AUTOMATED 251 k/mm3 (150-450); RED CELL DISTRIBUTION WIDTH 14.9 % (11.5-14.5); WHITE BLOOD COUNT 3.5 K/mm3 (4.0-10.0)
[2016-10-17 07:16] LABS: ANION GAP 2 MEQ/L (8-16); BLOOD UREA NITROGEN 24 MG/DL (7-18); CALCIUM LEVEL 8.8 MG/DL (8.8-10.2); CARBON DIOXIDE LEVEL 33 MEQ/L (21-32); CHLORIDE LEVEL 103 MEQ/L (98-107); CREATININE FOR GFR 0.98 MG/DL (0.55-1.02); GLOMERULAR FILTRATION RATE 57.8 (>32); GLUCOSE, FASTING 90 MG/DL (83-110); MAGNESIUM LEVEL 2.4 MG/DL (1.8-2.4); POTASSIUM SERUM 4.5 MEQ/L (3.5-5.1); SODIUM LEVEL 138 MEQ/L (136-145)
[2016-10-17] MEDS: LISINOPRIL 20 MG TAB PO SCH ×2 (09:00→20:42)
[2016-10-17] MEDS: METOPROLOL TART 25 MG TABLET PO SCH ×2 (09:00→20:42)
[2016-10-17] MEDS: amLODIPine 10 MG TAB PO SCH (09:00)
[2016-10-17] MEDS: FUROSEMIDE 40 MG TAB PO SCH (10:34)
[2016-10-17] MEDS: LACTOBACILLUS ACIDOPHILUS CAP (BACID) PO SCH ×2 (10:34→20:42)
[2016-10-17] MEDS: EUCERIN 120GM CREAM TOP SCH (10:35)
--- NOTE | 2016-10-17 13:25 | IPN ---
DATE: 10/17/2016 An 81-year-old female doing well. No overnight issues. Concern is safety of discharge and trying to make arrangements with [facility] for wound dressings and appropriate followup. No overnight issues otherwise. OBJECTIVE: Temperature is 97.6, pulse 75, respiratory rate 19, blood pressure 145/75, SpO2 is 90% on room air. She does not appear to be in any acute distress. No labored breathing. LUNGS: Clear. HEART: Regular rate and rhythm. LABORATORY DATA: White count 3.5, hemoglobin is 10.8, platelets are 251. Sodium is 138, potassium 4.5, chloride 103, bicarbonate 33, anion gap 2, BUN 24, creatinine 0.98, glucose is 90. ASSESSMENT AND PLAN: 1. Upper lower extremity cellulitis. She does appear to be doing well. C-reactive protein (CRP) is normalized. Appreciate Dr. Wills's recommendations regarding chronic wounds. From medical standpoint, she is stable otherwise. 2. Hypertension. Continue on Norvasc, beta clayton, angiotensin-converting enzyme (BRIDGER) inhibitor. 3. Diabetes, type 2. Continue with fingersticks and sliding scale coverage. 4. New diagnosis of atrial fibrillation with CHADS-VASc score of 6. Continue Xarelto. 5. Congestive heart failure (CHF) with diastolic dysfunction, appears compensated. 6. Right lower extremity skin lesion. She refused excisional biopsy. She can followup with Dr. Olivarez outpatient. 7. Acute kidney injury, resolved. 8. Bilateral venous stasis changes. Followup with Dr. Wills. 9. Possible melena in the past, resolved. Hemoglobin and hematocrit are stable. 10. Pelvic mass demonstrated on CT scan. This is unchanged from September of 2012. I spoke with Dr. Olivarez and she can followup outpatient. 11. Deep vein thrombosis (DVT) prophylaxis, on Xarelto. DISPOSITION: We will make her nursing home and see how she does through the weekend with anticipation to discharge her home on Friday with her to be picked up by [facility] on Friday.
[2016-10-17 14:00] VITALS: BP 135/63
[2016-10-17] MEDS: RIVAROXABAN 20 MG TAB (XARELTO) PO SCH (17:05)
[2016-10-17 22:00] VITALS: BP 122/59
[2016-10-18 06:52] LABS: EOS # 0.2 K/mm3 (0.0-0.50); EOS % 4.6 % (0.0-3.0); LARGE UNSTAINED CELL # 0.1 K/mm3 (0.0-0.4); LARGE UNSTAINED CELL % 2.3 % (0.0-4.0); LYMPH # 1.1 K/mm3 (1.5-4.5); LYMPH % 29.8 % (24.0-44.0); MEAN CORPUSCULAR HEMOGLOBIN 30.4 pg (27.0-33.0); MEAN CORPUSCULAR HGB CONC 32.3 g/dl (32.0-36.5); MEAN CORPUSCULAR VOLUME 94.2 fl (80.0-96.0); MONO # 0.4 K/mm3 (0.0-0.8); MONO % 9.8 % (0.0-5.0); NEUTROPHILS % 52.5 % (36.0-66.0); PLATELET COUNT, AUTOMATED 256 k/mm3 (150-450); WHITE BLOOD COUNT 3.7 K/mm3 (4.0-10.0)
[2016-10-18 07:08] LABS: ANION GAP 6 MEQ/L (8-16); BLOOD UREA NITROGEN 24 MG/DL (7-18); CALCIUM LEVEL 8.4 MG/DL (8.8-10.2); CARBON DIOXIDE LEVEL 30 MEQ/L (21-32); CHLORIDE LEVEL 102 MEQ/L (98-107); CREATININE FOR GFR 0.96 MG/DL (0.55-1.02); GLOMERULAR FILTRATION RATE 59.2 (>32); GLUCOSE, FASTING 84 MG/DL (83-110); MAGNESIUM LEVEL 2.1 MG/DL (1.8-2.4); POTASSIUM SERUM 4.3 MEQ/L (3.5-5.1); SODIUM LEVEL 138 MEQ/L (136-145)
[2016-10-18] MEDS: LACTOBACILLUS ACIDOPHILUS CAP (BACID) PO SCH ×2 (08:34→21:35)
[2016-10-18] MEDS: EUCERIN 120GM CREAM TOP SCH (08:35)
[2016-10-18] MEDS: METOPROLOL TART 25 MG TABLET PO SCH ×2 (08:35→21:00)
[2016-10-18] MEDS: FUROSEMIDE 40 MG TAB PO SCH (08:35)
[2016-10-18] MEDS: LISINOPRIL 20 MG TAB PO SCH ×2 (08:36→21:00)
[2016-10-18] MEDS: amLODIPine 10 MG TAB PO SCH (08:36)
[2016-10-18 17:00] VITALS: BP 112/59
[2016-10-18] MEDS: RIVAROXABAN 20 MG TAB (XARELTO) PO SCH (17:05)
[2016-10-18 22:00] VITALS: BP 110/55
[2016-10-19 06:00] VITALS: BP 126/64
[2016-10-19 06:20] LABS: EOS # 0.2 K/mm3 (0.0-0.50); EOS % 4.8 % (0.0-3.0); LARGE UNSTAINED CELL # 0.1 K/mm3 (0.0-0.4); LARGE UNSTAINED CELL % 2.6 % (0.0-4.0); LYMPH # 1.1 K/mm3 (1.5-4.5); LYMPH % 29.6 % (24.0-44.0); MEAN CORPUSCULAR HEMOGLOBIN 31.7 pg (27.0-33.0); MEAN CORPUSCULAR HGB CONC 33.4 g/dl (32.0-36.5); MEAN CORPUSCULAR VOLUME 94.8 fl (80.0-96.0); MONO # 0.4 K/mm3 (0.0-0.8); MONO % 9.3 % (0.0-5.0); NEUTROPHILS % 52.6 % (36.0-66.0); PLATELET COUNT, AUTOMATED 249 k/mm3 (150-450); RED CELL DISTRIBUTION WIDTH 15.1 % (11.5-14.5); WHITE BLOOD COUNT 3.8 K/mm3 (4.0-10.0)
[2016-10-19 06:44] LABS: ANION GAP 5 MEQ/L (8-16); BLOOD UREA NITROGEN 28 MG/DL (7-18); CALCIUM LEVEL 8.2 MG/DL (8.8-10.2); CARBON DIOXIDE LEVEL 31 MEQ/L (21-32); CHLORIDE LEVEL 102 MEQ/L (98-107); CREATININE FOR GFR 0.93 MG/DL (0.55-1.02); GLOMERULAR FILTRATION RATE > 60.0 (>32); GLUCOSE, FASTING 83 MG/DL (83-110); MAGNESIUM LEVEL 2.1 MG/DL (1.8-2.4); POTASSIUM SERUM 4.4 MEQ/L (3.5-5.1); SODIUM LEVEL 138 MEQ/L (136-145)
[2016-10-19] MEDS: amLODIPine 10 MG TAB PO SCH (07:42)
[2016-10-19] MEDS: FUROSEMIDE 40 MG TAB PO SCH (07:42)
[2016-10-19] MEDS: EUCERIN 120GM CREAM TOP SCH (07:43)
[2016-10-19] MEDS: LACTOBACILLUS ACIDOPHILUS CAP (BACID) PO SCH ×2 (07:43→21:01)
[2016-10-19] MEDS: METOPROLOL TART 25 MG TABLET PO SCH ×2 (07:43→20:57)
[2016-10-19] MEDS: LISINOPRIL 20 MG TAB PO SCH ×2 (07:43→20:58)
[2016-10-19 14:00] VITALS: BP 97/55
--- NOTE | 2016-10-19 15:09 | DSES ---
DATE OF ADMISSION: 10/05/2016 DATE OF DISCHARGE: PRIMARY CARE PROVIDER: Dr. Olivarez. CONSULTANTS: Dr. Wills. PROCEDURES: None. COMPLICATIONS: None. ADMISSION/DISCHARGE DIAGNOSES: 1. Bilateral lower extremity cellulitis. 2. Hypertension. 3. Diabetes. 4. New onset of atrial fibrillation with CHADS-VASc score of 6, currently on Xarelto and rate controlled. 5. Congestive heart failure (CHF) with diastolic dysfunction, compensated. 6. Right lower extremity lesion lateral to her ankle, refused excision biopsy. 7. Acute kidney injury, resolved. 8. Bilateral venous stasis changes. 9. Melena, which has resolved with stable hemoglobin and hematocrit (H and H). 10. Pelvic mass demonstrated on CT scan, unchanged from September 2012. Will need outpatient followup with Dr. Olivarez. BRIEF HOSPITAL COURSE: Ms. Michelle is an 81-year-old female who presented to the emergency department on 10/05/2016 with left leg pain and noted bilateral lower extremity cellulitis with left greater than right. She did appear to be disheveled. EMS had been contacted. She was brought to the emergency department and on further evaluation did demonstrate cellulitis with a normal white count and lactic acid 1.2. No fracture was seen on x-ray of the left foot and Doppler ultrasound of the lower extremities were negative for deep vein thrombosis (DVT). At any rate, she was admitted for IV antibiotics and initially treated on Teflaro. [facility] ([facility]) was consulted for further assistance regarding her discharge planning and disposition. Dr. Wills was contacted due to some wounds that were noted on the lower extremity and recommended that she will need to have podiatry followup for her toenails to be trimmed. He made recommendations regarding wounds on the left heel offloading. Postoperative shoe or cast was recommended to be avoided since they are difficult to walk in; however, she did need some protection. She can followup outpatient. Recommendations were to wear compression wrapping and/or Unna boot. She will need appropriate outpatient followup with Dr. Wills and [facility]. Her discharge was delayed this weekend due to the need for public health to be available for wound dressing changes and they will be available on Friday I am told, so we will plan on discharging her Friday so that she can be home and they can see her on Friday. DISCHARGE MEDICATIONS: - Desitin applied as directed - Eucerin cream applied topically daily - Qing-Bid Probiotic 1 tablet twice a day - Xarelto 20 mg daily - Norvasc 10 mg daily - Lasix 40 mg daily - lisinopril 20 mg daily - metoprolol tartrate 25 mg twice a day DISCHARGE INSTRUCTIONS: Discharge to home. Activity as tolerated. Regular diet. To keep followup appointments with Dr. Olivarez and Dr. Wills. Will need outpatient referral for podiatry. She is instructed to seek medical attention should her symptoms worsen or progress. The discharge took approximately 35 minutes.
[2016-10-19] MEDS: RIVAROXABAN 20 MG TAB (XARELTO) PO SCH (17:29)
[2016-10-19 22:00] VITALS: BP 106/55
[2016-10-20 06:00] VITALS: BP 120/70
[2016-10-20 08:13] VITALS: BP 120/70
[2016-10-20] MEDS: EUCERIN 120GM CREAM TOP SCH (08:13)
[2016-10-20] MEDS: amLODIPine 10 MG TAB PO SCH (08:13)
[2016-10-20] MEDS: LACTOBACILLUS ACIDOPHILUS CAP (BACID) PO SCH (08:13)
[2016-10-20] MEDS: METOPROLOL TART 25 MG TABLET PO SCH (08:13)
[2016-10-20] MEDS: LISINOPRIL 20 MG TAB PO SCH (08:13)
[2016-10-20] MEDS: FUROSEMIDE 40 MG TAB PO SCH (08:13)
[2016-10-20 14:00] VITALS: BP 112/64
[2016-10-20] MEDS: RIVAROXABAN 20 MG TAB (XARELTO) PO SCH (14:52)
== END 2016-10-20 15:20 | disposition home health service (06) | DRG 603 ==
LOC: EDSEX 18:05 → EDBD 18:05 → M ED 19:15 → M ED INP 10-05 04:17 → M MSPAV 10-05 05:21 → M PCU 10-05 14:13 → M MS4PR 10-07 22:15 → M MSPAV 10-08 12:54
PROVIDERS: ADMIT Hospitalist; ATTEND Hospitalist
DX: L03.116 Cellulitis of left lower limb (principal); I50.32 Chronic diastolic (congestive) heart failure; I13.0 Hypertensive heart and chronic kidney disease with heart failure and stage 1 through stage 4 chronic kidney disease, or unspecified chronic kidney disease; N17.9 Acute kidney failure, unspecified; K92.1 Melena; E11.9 Type 2 diabetes mellitus without complications; D25.9 Leiomyoma of uterus, unspecified; L25.9 Unspecified contact dermatitis, unspecified cause; N18.9 Chronic kidney disease, unspecified; I87.2 Venous insufficiency (chronic) (peripheral); I48.91 Unspecified atrial fibrillation; Z79.891 Long term (current) use of opiate analgesic; Z79.899 Other long term (current) drug therapy

== ENCOUNTER 2016-11-27 08:30 | Inpatient (IN) | payer MEDICARE, MEDICAID ==
[2016-11-27] VITALS (10 sets, daily range): BP systolic 81–110; BP diastolic 52–78; O2SAT 96
[~2016-11-27 08:30] MED LIST changes: +AMLO10TA PO; +DESITIN TOP; +EUCECRE3 TOP; +LISI-538 PO; +RISATAB3 PO; +XARE20TA PO
[2016-11-27] MEDS ORDERED: methylPREDNISolone INJ 125 MG/2 ML VIAL (J2930) IV ONE (08:45)
[2016-11-27] MEDS ORDERED: ALBUTEROL SULFATE 2.5 MG/0.5 ML INH NEB SOLN INH ONE (08:45)
[2016-11-27] MEDS ORDERED: IPRATROPIUM 0.5MG/ALBUTEROL 2.5MG INH SOL UD 3ML (DUONEB)(J7620) NEB ONE (08:45)
[2016-11-27 08:58] LABS: ABG BASE EXCESS 4.3 (-2.0-2.0); ABG HCO3 35.5 MEQ/L (22.0-26.0); ABG PARTIAL PRESSURE O2 70.9 mmHg (75.0-100.0); ABG STANDARD HCO3 28.2 MEQ/L (22.0-26.0); ABG TOTAL CO2 38.5 MEQ/L (23.0-31.0)
[2016-11-27 08:59] LABS: BASO % 0.3 % (0.0-1.0); EOS % 0.6 % (0.0-3.0); LARGE UNSTAINED CELL # 0.1 K/mm3 (0.0-0.4); LARGE UNSTAINED CELL % 1.2 % (0.0-4.0); LYMPH # 0.6 K/mm3 (1.5-4.5); LYMPH % 8.5 % (24.0-44.0); MEAN CORPUSCULAR HEMOGLOBIN 29.7 pg (27.0-33.0); MEAN CORPUSCULAR HGB CONC 30.6 g/dl (32.0-36.5); MEAN CORPUSCULAR VOLUME 97.2 fl (80.0-96.0); MONO # 0.4 K/mm3 (0.0-0.8); MONO % 5.6 % (0.0-5.0); NEUTROPHILS % 83.9 % (36.0-66.0); PLATELET COUNT, AUTOMATED 384 k/mm3 (150-450); RED CELL DISTRIBUTION WIDTH 14.2 % (11.5-14.5); WHITE BLOOD COUNT 7.2 K/mm3 (4.0-10.0)
[2016-11-27 09:00] LABS: ABG PARTIAL PRESSURE CO2 97.6 mmHg (35.0-45.0); ABG pH (ARTERIAL) 7.179 UNITS (7.350-7.450)
[2016-11-27] MEDS: NYSTATIN 100,000 UNITS/GM TOPICAL PWD 15 GM TOP SCH ×2 (09:00→21:15)
[2016-11-27] MEDS ORDERED: VANCOMYCIN HCL 1,000 MG, VIAL MATE ADAPTER 1 EACH in D5W 250 ML IV ONE (09:00)
[2016-11-27] MEDS: METOPROLOL TART 25 MG TABLET PO SCH ×2 (09:00→21:00)
[2016-11-27] MEDS ORDERED: FUROSEMIDE 100 MG/10 ML VIAL (J1940) IV ONE (09:00)
--- NOTE | 2016-11-27 09:10 | REP ---
Portable chest x-ray: Sitting AP view. History: Shortness of breath. Findings: The left hemithorax is largely opacified consistent with a combination of pleural effusion and infiltrate in the left lung. There is some aeration in the left apex. The patient is rotated to the left. The left hemidiaphragm is not seen. The right hemidiaphragm is partially obscured and there is hazy opacity in the right base consistent with a small right pleural effusion. The remaining right lung is clear. Impression: Bilateral pleural effusions and infiltrate in the left lung. The left hemithorax is almost completely opacified. Signed by Hernando Hernandez MD 11/27/2016 01:32 P
[2016-11-27 09:15] LABS: ALBUMIN 2.7 GM/DL (3.2-5.2); ALBUMIN/GLOBULIN RATIO 0.54 (1.00-1.93); ALKALINE PHOSPHATASE 216 U/L (45-117); ALT/SGPT 22 U/L (12-78); ANION GAP 4 MEQ/L (8-16); AST/SGOT 11 U/L (15-37); BILIRUBIN,DIRECT 0.2 MG/DL (0.0-0.2); BILIRUBIN,TOTAL 0.5 MG/DL (0.2-1.0); BLOOD UREA NITROGEN 50 MG/DL (7-18); CALCIUM LEVEL 9.1 MG/DL (8.8-10.2); CARBON DIOXIDE LEVEL 33 MEQ/L (21-32); CHLORIDE LEVEL 100 MEQ/L (98-107); CREATININE FOR GFR 1.19 MG/DL (0.55-1.02); GLOMERULAR FILTRATION RATE 46.2 (>32); GLUCOSE, FASTING 164 MG/DL (83-110); POTASSIUM SERUM 4.3 MEQ/L (3.5-5.1); SODIUM LEVEL 137 MEQ/L (136-145); TOTAL PROTEIN 7.7 GM/DL (6.4-8.2)
[2016-11-27] MEDS ORDERED: CEFEPIME HCL 2 GM in D5W MINI-BAG PLUS 50 ML IV ONE (09:15)
[2016-11-27] MEDS ORDERED: AZITHROMYCIN INJ 500 MG, VIAL MATE ADAPTER 1 EACH in D5W 250 ML IV ONE (09:15)
[2016-11-27 09:16] LABS: INR 1.95
[2016-11-27 09:56] LABS: ABG BASE EXCESS -2.3 (-2.0-2.0); ABG HCO3 26.4 MEQ/L (22.0-26.0); ABG PARTIAL PRESSURE O2 150.3 mmHg (75.0-100.0); ABG STANDARD HCO3 22.6 MEQ/L (22.0-26.0); ABG TOTAL CO2 28.4 MEQ/L (23.0-31.0)
[2016-11-27 09:59] LABS: ABG PARTIAL PRESSURE CO2 65.3 mmHg (35.0-45.0); ABG pH (ARTERIAL) 7.224 UNITS (7.350-7.450)
[2016-11-27] MEDS ORDERED: XARE20TA PO (10:32)
[2016-11-27] MEDS ORDERED: BACITAB3 PO (10:32)
[2016-11-27] MEDS: IPRATROPIUM 0.5MG/ALBUTEROL 2.5MG INH SOL UD 3ML (DUONEB)(J7620) NEB SCH ×3 (11:27→19:17)
--- NOTE | 2016-11-27 11:33 | CCN ---
DATE: 11/27/2016 Critical care time was 1 hour, this excludes all procedures. HISTORY OF PRESENT ILLNESS: The patient is a known heart failure patient with questionable compliance. She presented to the emergency room after being found by a addiction social worker in her home as the patient was complaining about shortness of breath. During the transport by ambulance and on arrival, she was significantly hypoxic even on a non-rebreather was saturating in the high 80s. She was placed on BiPap and has had significant respiratory distress since then. Her history is limited as she is unable to speak well; however, she has communicated both to me and to the emergency room physician that she would not want resuscitation. She is willing to accept limited BiPap. She identifies Flaca Gonzalez as her sister. I do not have any contact information for her and the patient is unable to supply this at this point in time. She mentions no other family members that I would be able to contact. She denies any cough, fever, chills at home. Simply states she is short of breath. PAST MEDICAL HISTORY: 1. Diabetes. 2. Hypertension. 3. Diastolic heart failure. 4. Chronic lower extremity edema. 5. Peripheral vascular disease with a recent imaging showing three calf arteries on the right that are occluded to the distal calf. 6. Recent admission for cellulitis on October 20, 2016. 7. Atrial fibrillation on Xarelto. 8. History of pelvic mass on CT followed by primary care since January 2013. 9. History of moderate MR. SOCIAL HISTORY: The patient states she never smoked. Apparently she lives alone. I am unable to get any other past medical history or review of systems. PHYSICAL EXAMINATION: VITAL SIGNS: Temperature is 95.3 pulse is 71, respiratory rate is 24, blood pressure is 130/78. Mean arterial pressure is 95, oxygen saturation is 89% on non-rebreather and is currently 93% on 80% FiO2. The patient is on bilevel noninvasive therapy on my arrival at 14 over 8 with a backup rate of 8, FiO2 of 0.8. She is achieving tidal volumes in the high 300 range. HEENT: Sclerae clear and anicteric. Mucous membranes appear moist. Tongue is midline. NECK: Supple. She does have elevated jugular venous pressure. PULMONARY: Decreased breath sounds on the right, dull to percussion. Fair entry on the left. ABDOMEN: Slightly distended but nontender. She has a reducible umbilical hernia. CARDIAC: Heart rate was irregularly irregular with no audible murmur, rub or gallop. She has significant systemic edema. EXTREMITIES: Chronic lower extremity edema. A large right lower extremity old skin lesion that is approximately 45 cm. She has refused excision in the past. MUSCULOSKELETAL: Appears to have muscle wasting. Chronic osteoarthritic changes. NEUROLOGIC: No unilateral weakness but has generalized weakness. No tremor. No evidence of seizure activity. Laboratory evaluation shows a troponin of 0.02, INR is 1.95, D-dimer is 2000. Arterial blood gas shows a pH of 7.18, pCO2 of 98 and a pAO2 of 71. White blood cell count is 7.2, hemoglobin is 12.0, hematocrit is 39.2, platelet count of 384 with 84% neutrophilia. Sodium is 137, potassium is 4.3, chloride is 100, bicarbonate is 33, BUN is 50, creatinine is 1.19, glucose is 160. BNP is 712, albumin is 2.7. Chest x-ray shows and near complete whiteout on the left. There is minimal blunting of the right costophrenic angle. 1. Hypercarbic hypoxic respiratory failure, likely secondary to pulmonary edema and large pleural effusion. The patient is on Xarelto therefore I will attempt diuresis and allow a day prior to attempting thoracentesis. At this point in time, she has no leukocytosis. No history of cough. No fever. I do not believe she has infection at this point in time; however, we will continue monitor. She did receive cefepime, azithromycin and vancomycin in the emergency room. We will continue bilevel noninvasive therapy. 2. Pulmonary edema. Aggressive diuresis for a total 1 liter a day. We will consider therapeutic thoracentesis in the morning. 3. Hypoalbuminemia, likely from protein calorie malnourishment versus volume overload. 4. Abnormal EKG. There are new changes on lead I and lead III. The patient states she would not want any further procedures for this. I will monitor with every 8 troponin. We will obtain an EKG in the morning. 5. Atrial fibrillation. I will continue rate control with metoprolol. She has diastolic dysfunction. No known systolic dysfunction. 6. Renal insufficiency. At this point in time, believe that she could tolerate additional diuretics; however, we will closely monitor renal function while she is in the hospital. 7. Elevated INR on Xarelto. I am holding Xarelto at this point in time in case any further invasive procedures, such as thoracentesis is required, although I am not sure the patient would agree to having this performed. 8. Deep vein thrombosis (DVT) prophylaxis with Lovenox. 9. Gastrointestinal prophylaxis with Protonix. Critical care time was 1 hour. This excludes all procedures. MTDD
[2016-11-27] MEDS: FUROSEMIDE 40 MG/4 ML VIAL (J1940) IV SCH ×3 (12:15→21:16)
[2016-11-27] MEDS: ENOXAPARIN 30 MG/0.3 ML SYR (J1650) SC SCH (12:16)
[2016-11-27] MEDS: PANTOPRAZOLE 40MG INJ (PROTONIX) (C9113) IV SCH (12:19)
[2016-11-27 17:42] LABS: ABG BASE EXCESS 3.1 (-2.0-2.0); ABG PARTIAL PRESSURE CO2 57.4 mmHg (35.0-45.0); ABG PARTIAL PRESSURE O2 86.9 mmHg (75.0-100.0); ABG STANDARD HCO3 27.2 MEQ/L (22.0-26.0); ABG TOTAL CO2 31.8 MEQ/L (23.0-31.0); ABG pH (ARTERIAL) 7.336 UNITS (7.350-7.450)
[2016-11-28] VITALS (18 sets, daily range): BP systolic 91–114; BP diastolic 52–70
[2016-11-28] MEDS: FUROSEMIDE 40 MG/4 ML VIAL (J1940) IV SCH ×6 (00:42→21:15)
[2016-11-28 04:43] LABS: MEAN CORPUSCULAR HEMOGLOBIN 29.6 pg (27.0-33.0); MEAN CORPUSCULAR HGB CONC 31.3 g/dl (32.0-36.5); MEAN CORPUSCULAR VOLUME 94.6 fl (80.0-96.0); RED CELL DISTRIBUTION WIDTH 14.5 % (11.5-14.5); WHITE BLOOD COUNT 5.5 K/mm3 (4.0-10.0)
[2016-11-28 05:11] LABS: ALBUMIN 2.1 GM/DL (3.2-5.2); ALBUMIN/GLOBULIN RATIO 0.53 (1.00-1.93); BILIRUBIN,TOTAL 0.4 MG/DL (0.2-1.0); CALCIUM LEVEL 8.8 MG/DL (8.8-10.2); CREATININE FOR GFR 1.09 MG/DL (0.55-1.02); GLOMERULAR FILTRATION RATE 51.2 (>32); POTASSIUM SERUM 4.8 MEQ/L (3.5-5.1); TOTAL PROTEIN 6.1 GM/DL (6.4-8.2)
[2016-11-28 06:16] LABS: ABG BASE EXCESS 5.4 (-2.0-2.0); ABG HCO3 30.6 MEQ/L (22.0-26.0); ABG PARTIAL PRESSURE CO2 47.2 mmHg (35.0-45.0); ABG PARTIAL PRESSURE O2 80.7 mmHg (75.0-100.0); ABG STANDARD HCO3 29.3 MEQ/L (22.0-26.0); ABG pH (ARTERIAL) 7.429 UNITS (7.350-7.450)
[2016-11-28] MEDS: IPRATROPIUM 0.5MG/ALBUTEROL 2.5MG INH SOL UD 3ML (DUONEB)(J7620) NEB SCH (07:39)
--- NOTE | 2016-11-28 08:14 | ECGEPIP ---
Stationary ECG Study [facility] - ED Test Date: 2016-11-27 Pat Name: LOIS MCFADDEN Department: Room: - Gender: F Vehicle Glass Technician: yuriy : 1935 Requested By: Tory Hill Order Number: [id number] Reading MD: Batsheva Bush Measurements Intervals [place] Rate: 81 P: ID: 0 QRS: -7 QRSD: 92 T: 30 QT: 397 QTc: 462 Interpretive Statements ATRIAL FIBRILLATION WITH ABERRANT CONDUCTION OR VENTRICULAR PREMATURE COMPLEXES LOW QRS VOLTAGE IN EXTREMITY LEADS ANTEROSEPTAL MYOCARDIAL INFARCTION, PROBABLY OLD BASELINE ARTIFACT LIMITS INTERPRETATION Electronically Signed On 11-28-2016 8:14:03 EDT by Batsheva Bush
--- NOTE | 2016-11-28 08:44 | REP ---
Portable chest x-ray: Single view. History: Respiratory failure. Comparison chest x-ray is from November 27, 2016. Findings: There is persistent large dense infiltrate in the left upper lobe perihilar distribution. There is evidence of left pleural effusion and small amount of right pleural fluid as on yesterday's chest x-ray. There are some increased interstitial markings in the right base today. Findings essentially unchanged. The left hemithorax remains extensively opacified. Signed by Hernando Hernandez MD 11/28/2016 10:18 A
[2016-11-28] MEDS: PANTOPRAZOLE 40MG INJ (PROTONIX) (C9113) IV SCH (08:45)
[2016-11-28] MEDS: ENOXAPARIN 30 MG/0.3 ML SYR (J1650) SC SCH (08:47)
[2016-11-28] MEDS: METOPROLOL TART 25 MG TABLET PO SCH ×2 (08:47→21:16)
[2016-11-28] MEDS: NYSTATIN 100,000 UNITS/GM TOPICAL PWD 15 GM TOP SCH ×2 (08:50→21:00)
--- NOTE | 2016-11-28 09:46 | RO ---
DATE OF PROCEDURE: 11/28/2016 PREPROCEDURE DIAGNOSIS: Left ultrasound guided thoracentesis. POSTPROCEDURE DIAGNOSIS: Left ultrasound guided thoracentesis. DIAGNOSIS: Left pleural effusion. PROCEDURALIST: Dawit Porter DO PROFESSIONAL [employer]ORTS SCOUT: None. ANESTHESIA: 1% lidocaine 10 mL. DESCRIPTION OF PROCEDURE: After informed consent was reviewed with the patient and signed and placed in the chart, she was placed in the sitting position. The left posterior thorax was ultrasounded. The largest fluid collection was marked under ultrasound and the back was prepped and draped in a sterile manner with chlorhexidine and full barrier precautions. Time out was then performed identifying two patient identifiers with correct site and correct procedure. Lidocaine was then introduced subcutaneously down to the level of the pleura with return of yellow fluid, clear. The needle was removed. A idalia in the skin was made and the Arrow trocar was advanced into the pleural space. Catheter was advanced over the trocar and the trocar was removed. A total of 1020 mL of yellow to orange pleural fluid was removed. The procedure was stopped due to return of fluid. The patient had no complaints. There were no observed complications. The catheter was removed under exhalation. A band-aid was placed over the site. Postprocedure chest x-ray is pending. [facility]
--- NOTE | 2016-11-28 09:50 | CCN ---
DATE: 11/28/2016 Critical care time is 55 minutes. This excludes all procedures. At the patient's bedside this morning, patient complaining of BiPAP. She has acute hypoxic hypercarbic respiratory failure. Will attempt weaning her off BiPAP. Today she is slightly more tachycardiac. She missed her metoprolol dose yesterday, supposedly due to the systolic blood pressures in the high 90s. This morning her blood pressure is 106/70. She is net negative 1.5 liters. Chest x-ray still shows abnormalities, thought to be a pleural effusion; however, cannot entirely rule out pneumonia, however she has no white count of fever. PHYSICAL EXAMINATION: Temperature is 97.5, pulse is 102, blood pressure is 106/70 with a mean arterial pressure of 82, oxygen saturation is 96% on 0.30 FiO2 while on bilevel 14/8. GENERAL: Patient is much more awake this morning, alert and a request in the mass be removed. She states her breathing is better. HEENT: Sclerae clear and anicteric. Pupils equal, react to light. Mucous membranes are moist. Tongue is midline. NECK: Supple. No tracheal deviation. There is significant elevated JVP. PULMONARY: Decreased breath sounds on the left. No rhonchi or wheeze. Few rales at the base on the right. There is dullness to percussion on the left. No accessory muscle use. ABDOMEN: Soft, nontender, nondistended. There is a reducible umbilical hernia. No discernible hepatosplenomegaly. EXTREMITIES: Much less systemic edema. There is chronic venous stasis changes. MUSCULOSKELETAL: Some muscle wasting. No evidence of fracture or joint effusion. NEUROLOGIC: No tremor, asterixis or evidence of seizure activity. Laboratory evaluation shows a sodium 142, potassium 4.8, chloride 103, bicarb of 32, BUN of 49, creatinine of 1.09. Arterial blood gas this morning shows a pH of 7.43, pCO2 of 47, PaO2 of 81. White blood cell count is 5.5 with a hemoglobin of 11.2, hematocrit of 35.9 with a platelet count of 326. Albumin is 2.1, AST/ALT is 12 and 15, respectively. Chest x-ray shows some minimal improvement on the left however, there continues to be extensive pleural effusion possibly some fluffy infiltrate. 1. Respiratory failure. I believe this is most likely from decompensated heart failure. I cannot entirely rule out pneumonia and there is an infiltrate on the left therefore ceftriaxone, azithromycin are on board; however, if she improves from diuresis I would stop these antibiotics, if there is no further evidence of pneumonia. 2. Congestive heart failure, net negative 1.5 liters. The patient has had some improvement in symptoms. Will try off bilevel noninvasive therapy. She will require close monitoring in the ICU for further respiratory failure. 3. Abnormal x-ray. Plan on attempting an ultrasound of the left chest if there is a considerable pleural effusion I will perform bedside thoracentesis. 4. Diabetes. 5. Atrial fibrillation. Metoprolol was held. If the patient's rate continues to be high and blood pressure is intolerant to metoprolol, will consider adding digoxin. 6. Diet due to the to the fact that she is improved will add a low sodium diet. 7. Deep vein thrombosis (DVT) prophylaxis with Lovenox, but held for the procedure. 8. Gastrointestinal (GI) prophylaxis was discontinued today. She will start a diet. Critical care time as mentioned above. This excludes all procedures.
[2016-11-28] MEDS ORDERED: DIGOXIN INJ 0.5 MG/2 ML AMP (J1160) IV STA (09:52)
[2016-11-28] MEDS: cefTRIAXone SOD 2 GM in D5W MINI-BAG PLUS 50 ML IV SCH (10:13)
--- NOTE | 2016-11-28 10:31 | REP ---
PORTABLE CHEST, ONE VIEW: HISTORY: Pleural effusion. COMPARISON: 0701 on 11/28/2016. An infiltrate is present in the left upper lobe unchanged compared to the previous study. A left pleural effusion is present that is decreased compared to the previous study. An increase in interstitial markings is present in the right lower lobe unchanged compared to the previous study. There is no pneumothorax. IMPRESSION: 1. Left upper lobe infiltrate unchanged compared to the previous study. 2. Left pleural effusion decreased compared to the previous study. Signed by Rupert Pantoja MD 11/28/2016 10:48 A
[2016-11-28] MEDS: AZITHROMYCIN INJ 500 MG, VIAL MATE ADAPTER 1 EACH in D5W 250 ML IV SCH (11:10)
[2016-11-28 11:22] LABS: RBC PLEURAL FLUID < 10 (<10mm3 cells/uL); TNC PLEURAL FLUID 777 cells/uL (0-20)
[2016-11-28 11:23] LABS: BF DIFF IF INDICATED? YES (NO)
[2016-11-28 11:39] LABS: CC BF DIFF EXAM CYTOCENTRIFUGE
[2016-11-28 11:59] LABS: LDH, BODY FLUID 67 U/L (NOT ESTABLISHED); TOTAL PROTEIN, BODY FLUID 2.9 G/DL (NOT ESTABLISHED)
--- NOTE | 2016-11-28 12:56 | ECGEPIP ---
Stationary ECG Study [facility] Test Date: 2016-11-28 Pat Name: LOIS MCFADDEN Department: Room: [place] [address] Gender: F Bill Of Materials Clerk: BRANDEN : 1935 Requested By: KAYDEN Matos Order Number: [id number] Reading MD: Jaquan Mustafa Measurements Intervals [place] Rate: 92 P: [place]: 0 QRS: 7 QRSD: 96 T: 120 QT: 380 QTc: 472 Interpretive Statements ATRIAL FIBRILLATION WITH ABERRANT CONDUCTION OR VENTRICULAR PREMATURE COMPLEXES LOW QRS VOLTAGE IN EXTREMITY LEADS SEPTAL MYOCARDIAL INFARCTION, previously noted as early as 10-05-16 Significant artifact Electronically Signed On 11-28-2016 12:56:15 EDT by Jaquan Mustafa
[2016-11-29] VITALS (11 sets, daily range): BP systolic 101–130; BP diastolic 56–74; O2SAT 98
[2016-11-29] MEDS: FUROSEMIDE 40 MG/4 ML VIAL (J1940) IV SCH ×3 (01:03→08:07)
[2016-11-29 05:16] LABS: MEAN CORPUSCULAR HEMOGLOBIN 30.2 pg (27.0-33.0); MEAN CORPUSCULAR HGB CONC 32.8 g/dl (32.0-36.5); MEAN CORPUSCULAR VOLUME 91.9 fl (80.0-96.0); RED CELL DISTRIBUTION WIDTH 14.7 % (11.5-14.5); WHITE BLOOD COUNT 10.3 K/mm3 (4.0-10.0)
[2016-11-29 05:57] LABS: CALCIUM LEVEL 8.6 MG/DL (8.8-10.2); CREATININE FOR GFR 1.22 MG/DL (0.55-1.02); GLOMERULAR FILTRATION RATE 44.9 (>32); MAGNESIUM LEVEL 2.2 MG/DL (1.8-2.4); POTASSIUM SERUM 4.3 MEQ/L (3.5-5.1)
[2016-11-29 06:08] LABS: ABG BASE EXCESS 14.1 (-2.0-2.0); ABG HCO3 39.7 MEQ/L (22.0-26.0); ABG PARTIAL PRESSURE CO2 53.6 mmHg (35.0-45.0); ABG PARTIAL PRESSURE O2 75.4 mmHg (75.0-100.0); ABG STANDARD HCO3 37.9 MEQ/L (22.0-26.0); ABG TOTAL CO2 41.3 MEQ/L (23.0-31.0); ABG pH (ARTERIAL) 7.487 UNITS (7.350-7.450)
--- NOTE | 2016-11-29 08:47 | REP ---
Portable chest x-ray: Single view. History: Respiratory failure. Comparison chest x-ray November 28, 2016. Findings: The patient is rotated to the left for the current exposure similar to priors. There is some pleural opacity consistent with effusion and discoid atelectasis visible in the right base. Considerable infiltrate persists in the left lung perihilar region. There is a suggestion of small left pleural effusion as well. Air bronchograms are seen. The chin and facial soft tissues overlie the left apex. There are degenerative changes in the spine and shoulders. Impression: Large left sided infiltrate persists essentially unchanged. Small bilateral effusions. Plate-like atelectasis today in the right base. Signed by Hernando Hernandez MD 11/29/2016 09:37 A
[2016-11-29] MEDS: cefTRIAXone SOD 2 GM in D5W MINI-BAG PLUS 50 ML IV SCH (09:48)
[2016-11-29] MEDS: ENOXAPARIN 30 MG/0.3 ML SYR (J1650) SC SCH (09:48)
[2016-11-29] MEDS: METOPROLOL TART 25 MG TABLET PO SCH ×2 (09:48→20:58)
[2016-11-29] MEDS: NYSTATIN 100,000 UNITS/GM TOPICAL PWD 15 GM TOP SCH ×2 (09:49→20:59)
[2016-11-29] MEDS: AZITHROMYCIN INJ 500 MG, VIAL MATE ADAPTER 1 EACH in D5W 250 ML IV SCH (09:50)
--- NOTE | 2016-11-29 10:22 | IPN ---
DATE: 11/29/2016 Ms. Michelle is an 81-year-old female seen this morning. She has had issues with acute hypoxic and hypercarbic respiratory failure. Has been weaned off bilevel positive airway pressure (BiPAP). She does appear to be saturating well on 2 liters today and she continues to diurese well. She denies any chest pain, nausea, vomiting, palpitations. She feels her shortness of breath is improved. OBJECTIVE: Temperature 98.3, pulse 83 and regular, respiratory rate 20, blood pressure (BP ) 104/58, SpO2 is 98% on 2 liters. Intake and output for the last 24 hours: 2405.2705 with negative 300 mL. However, since midnight , she has had close to 2 liters out. HEENT: Unremarkable. Lungs: Diminished bibasilar breath sounds, occasional wheeze. Heart: Regular rate and rhythm/ Abdomen: Soft. Extremities: No edema, no calf tenderness. LABORATORIES: White count 10.3, hemoglobin is 11.7, platelets 363. Sodium 142, potassium 4.3, chloride 100, bicarbonate 37, anion gap 5, BUN 60, creatinine 1.22, up from 1.09, glucose is 166, magnesium 2.2. Chest x-ray this morning does show persistent left-sided infiltrate, which appears to be unchanged, small bilateral effusions and plate-like atelectasis noted on the right base. ASSESSMENT AND PLAN: 1. Acute hypoxic, hypercarbic respiratory failure. Likely related to decompensated heart failure. Will continue to diurese her. She does appear to be adequate for the floor so will downgrade her to the floor and plan on switching her to oral Lasix. 2. Right lower lobe pneumonia with infiltrate. Will continue on ceftriaxone and azithromycin for another 24 hours and plan on de-escalating her perhaps tomorrow. 3. Congestive heart failure. Decompensated as outlined above. She is close to 2 liters negative today. Creatinine did bump a little, but this morning we are going to hold on her next Lasix dose, but we are planning on transitioning her to oral Lasix. Did have a discussion with Dr. Porter yesterday, who recommended that we watch her in the intensive care unit (ICU) overnight last night, as we did, for her respiratory failure. She does appear to be doing well. Therefore, I believe she would be a good candidate for downgrading to the medical floor. 4. I did notice that Dr. Porter had mentioned that she was continuing the thoracentesis. However, her oxygen saturations were good. I will reach out to her to discuss what she thought when she looked at the patient's lung under ultrasound yesterday. At any rate, there is no recorded thoracentesis or pleural fluid drainage in the electronic medical records. 5. Atrial fibrillation. She will need to resume her Xarelto. Currently, she is rate controlled. Blood pressures do appear to be a little soft. Will hold off on beta-clayton at this point. 6. Diabetes. Continue fingersticks and sliding scale coverage as needed. Consistent carbohydrate diet. 7. Gastrointestinal (GI) prophylaxis has been discontinued. She does not appear to be as acutely ill. 8. Deep venous thrombosis (DVT) prophylaxis. On Lovenox. DISPOSITION: Will have patient and family services (PFS) consulted as well as make sure that we have a physical therapy (PT) on board. I do anticipate that she will be here maybe a couple more days, but she does appear to be showing some improvement. TU
[2016-11-29] MEDS: FUROSEMIDE 20 MG TAB PO SCH (12:49)
[2016-11-30 06:00] VITALS: BP 131/73
[2016-11-30 07:02] LABS: MEAN CORPUSCULAR HEMOGLOBIN 29.3 pg (27.0-33.0); MEAN CORPUSCULAR HGB CONC 31.2 g/dl (32.0-36.5); MEAN CORPUSCULAR VOLUME 93.9 fl (80.0-96.0); RED CELL DISTRIBUTION WIDTH 14.6 % (11.5-14.5); WHITE BLOOD COUNT 8.6 K/mm3 (4.0-10.0)
--- NOTE | 2016-11-30 09:22 | REP ---
Portable chest, 11/30/2016, 09:12 a.m., single AP view, the patient semi upright: Comparison is 11/29/2016. The patient is rotated, as previously. There is a large left lung infiltrate, unchanged. Right lung is clear. Cardiac size cannot be assessed. The cardiac margins are obscured. Impression: Persisting a large left lung infiltrate. Signed by Alan Smith MD 11/30/2016 09:14 A
[2016-11-30] MEDS: FUROSEMIDE 20 MG TAB PO SCH (11:00)
[2016-11-30] MEDS: ENOXAPARIN 30 MG/0.3 ML SYR (J1650) SC SCH (11:00)
[2016-11-30] MEDS: METOPROLOL TART 25 MG TABLET PO SCH ×2 (11:00→21:41)
[2016-11-30] MEDS: cefTRIAXone SOD 2 GM in D5W MINI-BAG PLUS 50 ML IV SCH (11:00)
[2016-11-30] MEDS: NYSTATIN 100,000 UNITS/GM TOPICAL PWD 15 GM TOP SCH ×2 (11:01→21:42)
[2016-11-30] MEDS: AZITHROMYCIN INJ 500 MG, VIAL MATE ADAPTER 1 EACH in D5W 250 ML IV SCH (12:01)
--- NOTE | 2016-11-30 12:56 | IPNPDOC ---
Date Seen The patient was seen on 11/30/16. Progress Note SUBJECTIVE: Patient does not offer any complaints this morning, denies any SOB , denies any nausea or vomiting or diarrhea, denies any abdominal pain , denies any chest pain . PHYSICAL EXAMINATION: VITAL SIGNS: Please see below. GENERAL: Awake alert, oriented , comfortable HEENT: Normocephalic , atraumatic, moist mucous membranes, anicteric eyes. CARDIOVASCULAR: S1, S2 regular, rate normal , no murmur or rub or gallop RESPIRATORY: Bilateral crackles in the back more on the left. no ronchi or wheezing. ABDOMINAL: Soft nontender, bowel sounds normal EXTREMITIES: trace edema around the ankles. NEUROLOGICAL:No focal neuro deficits. LABORATORY DATA: Please see below. MICROBIOLOGY: Please see below. IMAGING: CXR shows persistent infiltrates on the left ASSESSMENT AND PLAN: 1. Acute hypoxic, hypercarbic respiratory failure now resolving. Likely related to decompensated heart failure and pneumonia Will continue to diurese her and continue antibiotics. 2. Left lower lobe pneumonia with infiltrate. Will continue on ceftriaxone and azithromycin 3. Diastolic Congestive heart failure. Decompensated as outlined above. She is close to euvolemic status. continue po lasix. 4. Atrial fibrillation. Rate controlled with metoprolol on Xarelto. 6. Diabetes. Continue fingersticks and sliding scale coverage as needed. Consistent carbohydrate diet. 7. Gastrointestinal (GI) prophylaxis has been discontinued. She does not appear to be as acutely ill. 8. Deep venous thrombosis (DVT) prophylaxis. On Lovenox.. 9. Peripheral vascular disease with a recent imaging showing three calf arteries on the right that are occluded to the distal calf. 10. History of pelvic mass on CT followed by primary care since January 2013. 11. History of moderate Mitral regurgitation VS, I&O, 24H, Fishbone Vital Signs/I&O Vital Signs Date Time Temp Pulse Resp B/P (MAP) Pulse Ox O2 Delivery O2 Flow Rate FiO2 11/30/16 11:00 72 131/73 11/30/16 06:00 98.0 16 92 Nasal Cannula 2.0 11/28/16 08:00 30 I&O- Last 24 Hours up to 6 AM 11/30/16 06:00 Intake Total 1625 ml Output Total 2325 ml Balance -700 ml Laboratory Data CBC/BMP Laboratory Tests 11/30/16 06:25 Red Blood Count 4.03, Mean Corpuscular Volume 93.9, Mean Corpuscular Hemoglobin 29.3, Mean Corpuscular Hemoglobin Concent 31.2 L, Red Cell Distribution Width 14.6 H Microbiology Microbiology 11/27/16 Blood Culture - Preliminary, Resulted No Growth after 72 hours. All specime... 11/27/16 Blood Culture - Preliminary, Resulted No Growth after 72 hours. All specime... 11/28/16 Acid Fast Stain, Received Pending 11/28/16 Mycobacterial Culture, Received Pending 11/28/16 Fungal Smear, Received Pending 11/28/16 Fungal Culture, Received Pending 11/28/16 Gram Stain - Final, Complete 11/28/16 Anaerobic Culture - Final, Complete 11/28/16 Body Fluid Culture - Final, Complete 11/27/16 Influenza Virus Type A Antigen - Final, Complete 11/27/16 Influenza Virus Type B Antigen - Final, Complete YAZMIN BADILLO MD Nov 30, 2016 12:55
[2016-11-30 14:00] VITALS: BP 110/58
[2016-11-30 22:00] VITALS: BP 131/67
[2016-12-01 06:00] VITALS: BP 155/72
[2016-12-01 07:05] LABS: MEAN CORPUSCULAR VOLUME 93.8 fl (80.0-96.0); RED CELL DISTRIBUTION WIDTH 14.7 % (11.5-14.5); WHITE BLOOD COUNT 7.8 K/mm3 (4.0-10.0)
--- NOTE | 2016-12-01 08:45 | REP ---
Portable chest, 12/01/2016, 09:00 a.m., single AP view, patient sitting: Comparison 11/30/2016. There is a large left lung infiltrate, unchanged. Right lung is clear, unchanged. Cardiac size is enlarged. The christine and mediastinum are unremarkable. 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 Impression: Persisting large left lung infiltrate. Signed by Alan Smith MD 12/01/2016 08:37 A
[2016-12-01] MEDS: AZITHROMYCIN 250 MG TAB PO SCH (09:42)
[2016-12-01] MEDS: FUROSEMIDE 20 MG TAB PO SCH (09:42)
[2016-12-01] MEDS: cefTRIAXone SOD 2 GM in D5W MINI-BAG PLUS 50 ML IV SCH (09:43)
[2016-12-01] MEDS: NYSTATIN 100,000 UNITS/GM TOPICAL PWD 15 GM TOP SCH ×2 (09:43→21:18)
[2016-12-01] MEDS: ENOXAPARIN 30 MG/0.3 ML SYR (J1650) SC SCH (09:43)
--- NOTE | 2016-12-01 10:47 | IPNPDOC ---
Date Seen The patient was seen on 12/01/16. Progress Note SUBJECTIVE: Patient does not offer any complaints this morning, denies any SOB , denies any nausea or vomiting or diarrhea, denies any abdominal pain , denies any chest pain . PHYSICAL EXAMINATION: VITAL SIGNS: Please see below. GENERAL: Awake alert, oriented , comfortable HEENT: Normocephalic , atraumatic, moist mucous membranes, anicteric eyes. CARDIOVASCULAR: S1, S2 regular, rate normal , no murmur or rub or gallop RESPIRATORY: Bilateral crackles in the back more on the left. no ronchi or wheezing. ABDOMINAL: Soft nontender, bowel sounds normal EXTREMITIES: trace edema around the ankles. NEUROLOGICAL:No focal neuro deficits. LABORATORY DATA: Please see below. MICROBIOLOGY: Please see below. IMAGING: CXR shows persistent infiltrates on the left ASSESSMENT AND PLAN: 1. Acute hypoxic, hypercarbic respiratory failure now resolving. Likely related to decompensated heart failure and pneumonia Will continue to diurese her and continue antibiotics. 2. Left lower lobe pneumonia with infiltrate. Will continue on ceftriaxone and azithromycin 3. Diastolic Congestive heart failure. Decompensated as outlined above. She is close to euvolemic status. continue po lasix. 4. Atrial fibrillation. Rate controlled with metoprolol on Xarelto. 6. Diabetes. Continue fingersticks and sliding scale coverage as needed. Consistent carbohydrate diet. 7. Gastrointestinal (GI) prophylaxis has been discontinued. She does not appear to be as acutely ill. 8. Deep venous thrombosis (DVT) prophylaxis. On Lovenox.. 9. Peripheral vascular disease with a recent imaging showing three calf arteries on the right that are occluded to the distal calf. 10. History of pelvic mass on CT followed by primary care since January 2013. 11. History of moderate Mitral regurgitation VS, I&O, 24H, Fishbone Vital Signs/I&O Vital Signs Date Time Temp Pulse Resp B/P (MAP) Pulse Ox O2 Delivery O2 Flow Rate FiO2 12/01/16 06:00 97.6 73 20 155/72 (99) 93 Nasal Cannula 2.0 11/28/16 08:00 30 I&O- Last 24 Hours up to 6 AM 12/01/16 05:59 Intake Total 1560 ml Output Total 1600 ml Balance -40 ml Laboratory Data CBC/BMP Laboratory Tests 12/01/16 06:34 Red Blood Count 3.99 L, Mean Corpuscular Volume 93.8, Mean Corpuscular Hemoglobin 30.0, Mean Corpuscular Hemoglobin Concent 32.0, Red Cell Distribution Width 14.7 H Microbiology Microbiology 11/27/16 Blood Culture - Preliminary, Resulted No Growth after 72 hours. All specime... 11/27/16 Blood Culture - Preliminary, Resulted No Growth after 72 hours. All specime... 11/28/16 Acid Fast Stain, Received Pending 11/28/16 Mycobacterial Culture, Received Pending 11/28/16 Fungal Smear, Received Pending 11/28/16 Fungal Culture, Received Pending 11/28/16 Gram Stain - Final, Complete 11/28/16 Anaerobic Culture - Final, Complete 11/28/16 Body Fluid Culture - Final, Complete 11/27/16 Influenza Virus Type A Antigen - Final, Complete 11/27/16 Influenza Virus Type B Antigen - Final, Complete YAZMIN BADILLO MD Dec 01, 2016 10:47
[2016-12-01 14:00] VITALS: BP 137/67
[2016-12-01 22:00] VITALS: BP 147/65
[2016-12-02 06:00] VITALS: BP 142/67
[2016-12-02 06:46] LABS: BASO % 0.3 % (0.0-1.0); EOS # 0.3 K/mm3 (0.0-0.50); EOS % 4.7 % (0.0-3.0); LARGE UNSTAINED CELL # 0.1 K/mm3 (0.0-0.4); LARGE UNSTAINED CELL % 0.9 % (0.0-4.0); LYMPH # 1.1 K/mm3 (1.5-4.5); LYMPH % 14.9 % (24.0-44.0); MEAN CORPUSCULAR HEMOGLOBIN 29.3 pg (27.0-33.0); MEAN CORPUSCULAR HGB CONC 31.1 g/dl (32.0-36.5); MEAN CORPUSCULAR VOLUME 94.1 fl (80.0-96.0); MONO # 0.3 K/mm3 (0.0-0.8); MONO % 4.1 % (0.0-5.0); NEUTROPHILS # 5.2 K/mm3 (1.8-7.7); NEUTROPHILS % 75.1 % (36.0-66.0); PLATELET COUNT, AUTOMATED 310 k/mm3 (150-450); RED CELL DISTRIBUTION WIDTH 14.7 % (11.5-14.5)
[2016-12-02 06:58] LABS: ANION GAP 2 MEQ/L (8-16); BLOOD UREA NITROGEN 27 MG/DL (7-18); CALCIUM LEVEL 8.8 MG/DL (8.8-10.2); CARBON DIOXIDE LEVEL 40 MEQ/L (21-32); CHLORIDE LEVEL 100 MEQ/L (98-107); CREATININE FOR GFR 0.77 MG/DL (0.55-1.02); GLOMERULAR FILTRATION RATE > 60.0 (>32); GLUCOSE, FASTING 124 MG/DL (83-110); POTASSIUM SERUM 4.6 MEQ/L (3.5-5.1); SODIUM LEVEL 142 MEQ/L (136-145)
[2016-12-02] MEDS ORDERED: FUROSEMIDE 40 MG/4 ML VIAL (J1940) IV ONE (08:00)
[2016-12-02] MEDS: NYSTATIN 100,000 UNITS/GM TOPICAL PWD 15 GM TOP SCH ×2 (09:00→19:59)
[2016-12-02] MEDS: cefTRIAXone SOD 2 GM in D5W MINI-BAG PLUS 50 ML IV SCH (09:03)
[2016-12-02] MEDS: ENOXAPARIN 30 MG/0.3 ML SYR (J1650) SC SCH (09:04)
[2016-12-02] MEDS: AZITHROMYCIN 250 MG TAB PO SCH (09:04)
[2016-12-02] MEDS: FUROSEMIDE 20 MG TAB PO SCH (09:04)
--- NOTE | 2016-12-02 12:07 | IPNPDOC ---
Date Seen The patient was seen on 12/02/16. Progress Note SUBJECTIVE: Patient does not offer any complaints this morning, denies any SOB , denies any nausea or vomiting or diarrhea, denies any abdominal pain , denies any chest pain . Still requiring oxygen. PHYSICAL EXAMINATION: VITAL SIGNS: Please see below. GENERAL: Awake alert, oriented , comfortable HEENT: Normocephalic , atraumatic, moist mucous membranes, anicteric eyes. CARDIOVASCULAR: S1, S2 regular, rate normal , no murmur or rub or gallop RESPIRATORY: Bilateral crackles in the back more on the left. no ronchi or wheezing. ABDOMINAL: Soft nontender, bowel sounds normal EXTREMITIES: trace edema around the ankles. NEUROLOGICAL:No focal neuro deficits. LABORATORY DATA: Please see below. MICROBIOLOGY: Please see below. IMAGING: CXR shows persistent infiltrates on the left ASSESSMENT AND PLAN: 1. Acute hypoxic, hypercarbic respiratory failure now resolving. Likely related to decompensated heart failure and pneumonia Will continue to diurese her and continue antibiotics. 2. Left lower lobe pneumonia with infiltrate. Will continue on ceftriaxone and azithromycin 3. Diastolic Congestive heart failure. Decompensated as outlined above. She is close to euvolemic status. continue po lasix. 4. Atrial fibrillation. Rate controlled with metoprolol on Xarelto. 6. Diabetes. Continue fingersticks and sliding scale coverage as needed. Consistent carbohydrate diet. 7. Gastrointestinal (GI) prophylaxis has been discontinued. She does not appear to be as acutely ill. 8. Deep venous thrombosis (DVT) prophylaxis. On Lovenox.. 9. Peripheral vascular disease with a recent imaging showing three calf arteries on the right that are occluded to the distal calf. 10. History of pelvic mass on CT followed by primary care since January 2013. 11. History of moderate Mitral regurgitation VS, I&O, 24H, [place] Vital Signs/I&O Vital Signs Date Time Temp Pulse Resp B/P (MAP) Pulse Ox O2 Delivery O2 Flow Rate FiO2 12/02/16 06:00 98.3 86 18 142/67 (92) 94 Nasal Cannula 2.0 11/28/16 08:00 30 I&O- Last 24 Hours up to 6 AM 12/02/16 05:59 Intake Total 1020 ml Output Total 1850 ml Balance -830 ml Laboratory Data 24H LABS Laboratory Tests 2 12/02/16 06:29: White Blood Count 7.0, Red Blood Count 4.12, Hemoglobin 12.1, Hematocrit 38.8, Mean Corpuscular Volume 94.1, Mean Corpuscular Hemoglobin 29.3, Mean Corpuscular Hemoglobin Concent 31.1L, Red Cell Distribution Width 14.7H, Platelet Count 310, Neutrophils (%) (Auto) 75.1H, Lymphocytes (%) (Auto) 14.9L, Monocytes (%) (Auto) 4.1, Eosinophils (%) (Auto) 4.7H, Basophils (%) (Auto) 0.3 , Neutrophils # (Auto) 5.2, Lymphocytes # (Auto) 1.1L, Monocytes # (Auto) 0.3, Eosinophils # (Auto) 0.3, Basophils # (Auto) 0.0, Large Unclassified Cells % 0.9 , Large Unclassified Cells # 0.1, Anion Gap 2L, Glomerular Filtration Rate > 60.0, Blood Urea Nitrogen 27H, Creatinine 0.77, Sodium Level 142, Potassium Level 4.6, Chloride Level 100, Carbon Dioxide Level 40H, Calcium Level 8.8 CBC/BMP Laboratory Tests 12/02/16 06:29 Red Blood Count 4.12, Mean Corpuscular Volume 94.1, Mean Corpuscular Hemoglobin 29.3, Mean Corpuscular Hemoglobin Concent 31.1 L, Red Cell Distribution Width 14.7 H, Neutrophils (%) (Auto) 75.1 H, Lymphocytes (%) (Auto) 14.9 L, Monocytes (%) (Auto) 4.1, Eosinophils (%) (Auto) 4.7 H, Basophils (%) (Auto) 0.3, Neutrophils # (Auto) 5.2, Lymphocytes # (Auto) 1.1 L, Monocytes # (Auto) 0.3, Eosinophils # (Auto) 0.3, Basophils # (Auto) 0.0, Calcium Level 8.8 Microbiology Microbiology 11/27/16 Blood Culture - Final, Complete NO GROWTH AFTER 5 DAYS 11/27/16 Blood Culture - Final, Complete NO GROWTH AFTER 5 DAYS 11/28/16 Acid Fast Stain, Received Pending 11/28/16 Mycobacterial Culture, Received Pending 11/28/16 Fungal Smear, Received Pending 11/28/16 Fungal Culture, Received Pending 11/28/16 Gram Stain - Final, Complete 11/28/16 Anaerobic Culture - Final, Complete 11/28/16 Body Fluid Culture - Final, Complete 11/27/16 Influenza Virus Type A Antigen - Final, Complete 11/27/16 Influenza Virus Type B Antigen - Final, Complete YAZMIN BADILLO MD Dec 02, 2016 12:07
[2016-12-02 14:00] VITALS: BP 132/70
[2016-12-02 15:19] VITALS: BP 142/67
[2016-12-02] MEDS: AUGMENTIN 875 MG TAB PO SCH (19:59)
[2016-12-02 22:00] VITALS: BP 137/67
[2016-12-03 06:00] VITALS: BP 130/75
[2016-12-03 07:28] LABS: ANION GAP 4 MEQ/L (8-16); BLOOD UREA NITROGEN 27 MG/DL (7-18); CALCIUM LEVEL 8.6 MG/DL (8.8-10.2); CARBON DIOXIDE LEVEL 36 MEQ/L (21-32); CHLORIDE LEVEL 97 MEQ/L (98-107); CREATININE FOR GFR 0.84 MG/DL (0.55-1.02); GLOMERULAR FILTRATION RATE > 60.0 (>32); GLUCOSE, FASTING 120 MG/DL (83-110); POTASSIUM SERUM 4.8 MEQ/L (3.5-5.1); SODIUM LEVEL 137 MEQ/L (136-145)
[2016-12-03 07:31] LABS: BASO % 0.4 % (0.0-1.0); EOS # 0.3 K/mm3 (0.0-0.50); EOS % 3.7 % (0.0-3.0); LARGE UNSTAINED CELL # 0.1 K/mm3 (0.0-0.4); LARGE UNSTAINED CELL % 0.9 % (0.0-4.0); LYMPH # 0.8 K/mm3 (1.5-4.5); LYMPH % 8.6 % (24.0-44.0); MEAN CORPUSCULAR HEMOGLOBIN 29.8 pg (27.0-33.0); MEAN CORPUSCULAR HGB CONC 31.2 g/dl (32.0-36.5); MEAN CORPUSCULAR VOLUME 95.4 fl (80.0-96.0); MONO # 0.4 K/mm3 (0.0-0.8); MONO % 3.9 % (0.0-5.0); NEUTROPHILS # 7.6 K/mm3 (1.8-7.7); NEUTROPHILS % 82.5 % (36.0-66.0); PLATELET COUNT, AUTOMATED 306 k/mm3 (150-450); RED CELL DISTRIBUTION WIDTH 14.7 % (11.5-14.5); WHITE BLOOD COUNT 9.2 K/mm3 (4.0-10.0)
[2016-12-03] MEDS: ENOXAPARIN 30 MG/0.3 ML SYR (J1650) SC SCH (10:13)
[2016-12-03] MEDS: AUGMENTIN 875 MG TAB PO SCH ×2 (10:13→22:00)
[2016-12-03] MEDS: NYSTATIN 100,000 UNITS/GM TOPICAL PWD 15 GM TOP SCH ×2 (10:13→22:00)
[2016-12-03] MEDS: FUROSEMIDE 20 MG TAB PO SCH (10:13)
[2016-12-03 14:00] VITALS: BP 140/77
--- NOTE | 2016-12-03 15:25 | IPNPDOC ---
Date Seen The patient was seen on 12/03/16. Progress Note SUBJECTIVE: Patient does not offer any complaints this morning, denies any SOB , denies any nausea or vomiting or diarrhea, denies any abdominal pain , denies any chest pain .Pateint off oxygen from yesterday afternoon though did require some overnight. PHYSICAL EXAMINATION: VITAL SIGNS: Please see below. GENERAL: Awake alert, oriented , comfortable HEENT: Normocephalic , atraumatic, moist mucous membranes, anicteric eyes. CARDIOVASCULAR: S1, S2 regular, rate normal , no murmur or rub or gallop RESPIRATORY: Bilateral crackles in the back more on the left. no ronchi or wheezing. ABDOMINAL: Soft nontender, bowel sounds normal EXTREMITIES: trace edema around the ankles. NEUROLOGICAL:No focal neuro deficits. LABORATORY DATA: Please see below. MICROBIOLOGY: Please see below. IMAGING: CXR shows persistent infiltrates on the left ASSESSMENT AND PLAN: 1. Acute hypoxic, hypercarbic respiratory failure now resolving. Likely related to decompensated heart failure and pneumonia along with some restrictive airway disease as she has severe kyphoscoliosis. Will continue to diurese her and continue antibiotics. 2. Left lower lobe pneumonia with infiltrate. finished 5 days of ceftriaxone and azithromycin . will give augmentin 3 days. 3. Diastolic Congestive heart failure. Decompensated as outlined above. She is close to euvolemic status. continue po lasix. 4. Atrial fibrillation. Rate controlled with metoprolol on Xarelto. 6. Diabetes. Continue fingersticks and sliding scale coverage as needed. Consistent carbohydrate diet. 7. Gastrointestinal (GI) prophylaxis has been discontinued. She does not appear to be as acutely ill. 8. Deep venous thrombosis (DVT) prophylaxis. On Lovenox.. 9. Peripheral vascular disease with a recent imaging showing three calf arteries on the right that are occluded to the distal calf. 10. History of pelvic mass on CT followed by primary care since January 2013. 11. History of moderate Mitral regurgitation 12. Severe kyphoscoliosis causing restrictive lung disease. VS, I&O, 24H, Fishbone Vital Signs/I&O Vital Signs Date Time Temp Pulse Resp B/P (MAP) Pulse Ox O2 Delivery O2 Flow Rate FiO2 12/03/16 07:42 Room Air 12/03/16 06:00 97.0 87 19 130/75 (93) 98 2.0 12/02/16 15:19 30 I&O- Last 24 Hours up to 6 AM 12/03/16 06:00 Intake Total 840 ml Output Total 1200 ml Balance -360 ml Laboratory Data 24H LABS Laboratory Tests 2 12/03/16 06:55: White Blood Count 9.2, Red Blood Count 4.17, Hemoglobin 12.4, Hematocrit 39.8, Mean Corpuscular Volume 95.4, Mean Corpuscular Hemoglobin 29.8, Mean Corpuscular Hemoglobin Concent 31.2L, Red Cell Distribution Width 14.7H, Platelet Count 306, Neutrophils (%) (Auto) 82.5H, Lymphocytes (%) (Auto) 8.6L, Monocytes (%) (Auto) 3.9, Eosinophils (%) (Auto) 3.7H, Basophils (%) (Auto) 0.4 , Neutrophils # (Auto) 7.6, Lymphocytes # (Auto) 0.8L, Monocytes # (Auto) 0.4, Eosinophils # (Auto) 0.3, Basophils # (Auto) 0.0, Large Unclassified Cells % 0.9 , Large Unclassified Cells # 0.1, Anion Gap 4L, Glomerular Filtration Rate > 60.0, Blood Urea Nitrogen 27H, Creatinine 0.84, Sodium Level 137, Potassium Level 4.8, Chloride Level 97L, Carbon Dioxide Level 36H, Calcium Level 8.6L CBC/BMP Laboratory Tests 12/03/16 06:55 Red Blood Count 4.17, Mean Corpuscular Volume 95.4, Mean Corpuscular Hemoglobin 29.8, Mean Corpuscular Hemoglobin Concent 31.2 L, Red Cell Distribution Width 14.7 H, Neutrophils (%) (Auto) 82.5 H, Lymphocytes (%) (Auto) 8.6 L, Monocytes ( %) (Auto) 3.9, Eosinophils (%) (Auto) 3.7 H, Basophils (%) (Auto) 0.4, Neutrophils # (Auto) 7.6, Lymphocytes # (Auto) 0.8 L, Monocytes # (Auto) 0.4, Eosinophils # (Auto) 0.3, Basophils # (Auto) 0.0, Calcium Level 8.6 L Microbiology Microbiology 11/27/16 Blood Culture - Final, Complete NO GROWTH AFTER 5 DAYS 11/27/16 Blood Culture - Final, Complete NO GROWTH AFTER 5 DAYS 11/28/16 Acid Fast Stain - Final, Resulted 11/28/16 Mycobacterial Culture, Resulted Pending 11/28/16 Fungal Smear - Final, Resulted 11/28/16 Fungal Culture, Resulted Pending 11/28/16 Gram Stain - Final, Complete 11/28/16 Anaerobic Culture - Final, Complete 11/28/16 Body Fluid Culture - Final, Complete 11/27/16 Influenza Virus Type A Antigen - Final, Complete 11/27/16 Influenza Virus Type B Antigen - Final, Complete YAZMIN BADILLO MD Dec 03, 2016 15:25
[2016-12-03 22:00] VITALS: BP 129/68
[2016-12-04 06:00] VITALS: BP 131/68
[2016-12-04 07:06] LABS: BASO % 0.2 % (0.0-1.0); EOS # 0.3 K/mm3 (0.0-0.50); EOS % 6.5 % (0.0-3.0); LARGE UNSTAINED CELL # 0.1 K/mm3 (0.0-0.4); LARGE UNSTAINED CELL % 1.8 % (0.0-4.0); LYMPH # 0.9 K/mm3 (1.5-4.5); LYMPH % 17.1 % (24.0-44.0); MEAN CORPUSCULAR HEMOGLOBIN 29.4 pg (27.0-33.0); MEAN CORPUSCULAR HGB CONC 31.5 g/dl (32.0-36.5); MEAN CORPUSCULAR VOLUME 93.4 fl (80.0-96.0); MONO # 0.3 K/mm3 (0.0-0.8); MONO % 6.1 % (0.0-5.0); NEUTROPHILS # 3.4 K/mm3 (1.8-7.7); NEUTROPHILS % 68.2 % (36.0-66.0); PLATELET COUNT, AUTOMATED 273 k/mm3 (150-450); RED CELL DISTRIBUTION WIDTH 14.7 % (11.5-14.5)
[2016-12-04 07:15] LABS: ANION GAP 2 MEQ/L (8-16); BLOOD UREA NITROGEN 29 MG/DL (7-18); CALCIUM LEVEL 8.4 MG/DL (8.8-10.2); CARBON DIOXIDE LEVEL 36 MEQ/L (21-32); CHLORIDE LEVEL 98 MEQ/L (98-107); GLOMERULAR FILTRATION RATE > 60.0 (>32); GLUCOSE, FASTING 114 MG/DL (83-110); POTASSIUM SERUM 4.6 MEQ/L (3.5-5.1); SODIUM LEVEL 136 MEQ/L (136-145)
[2016-12-04] MEDS: AUGMENTIN 875 MG TAB PO SCH ×2 (09:27→21:37)
[2016-12-04] MEDS: FUROSEMIDE 20 MG TAB PO SCH (09:27)
[2016-12-04] MEDS: ENOXAPARIN 30 MG/0.3 ML SYR (J1650) SC SCH (09:27)
[2016-12-04] MEDS: NYSTATIN 100,000 UNITS/GM TOPICAL PWD 15 GM TOP SCH ×2 (09:27→21:38)
--- NOTE | 2016-12-04 12:55 | IPNPDOC ---
Date Seen The patient was seen on 12/04/16. Progress Note SUBJECTIVE: Patient does not offer any complaints this morning, denies any SOB , denies any nausea or vomiting or diarrhea, denies any abdominal pain , denies any chest pain .Patient off oxygen from yesterday afternoon though did require some overnight. performed well with PT however still needs to be cleared by OT. PHYSICAL EXAMINATION: VITAL SIGNS: Please see below. GENERAL: Awake alert, oriented , comfortable , severe kyphoscoliosis. HEENT: Normocephalic , atraumatic, moist mucous membranes, anicteric eyes. CARDIOVASCULAR: S1, S2 regular, rate normal , no murmur or rub or gallop RESPIRATORY: Bilateral crackles in the back more on the left improving no ronchi or wheezing. ABDOMINAL: Soft nontender, bowel sounds normal EXTREMITIES: trace edema around the ankles. NEUROLOGICAL:No focal neuro deficits. LABORATORY DATA: Please see below. MICROBIOLOGY: Please see below. IMAGING: CXR shows persistent infiltrates on the left ASSESSMENT AND PLAN: 1. Acute hypoxic, hypercarbic respiratory failure resolved. Likely related to decompensated heart failure and pneumonia along with some restrictive airway disease as she has severe kyphoscoliosis. Will continue to diurese her and continue antibiotics. 2. Left lower lobe pneumonia with infiltrate. finished 5 days of ceftriaxone and azithromycin . will give augmentin 3 days. 3. Diastolic Congestive heart failure. Decompensated as outlined above. She is close to euvolemic status. continue po lasix. 4. Atrial fibrillation. Rate controlled with metoprolol on Xarelto. 6. Diabetes. Continue fingersticks and sliding scale coverage as needed. Consistent carbohydrate diet. 7. Gastrointestinal (GI) prophylaxis has been discontinued. She does not appear to be as acutely ill. 8. Deep venous thrombosis (DVT) prophylaxis. On Lovenox.. 9. Peripheral vascular disease with a recent imaging showing three calf arteries on the right that are occluded to the distal calf. 10. History of pelvic mass on CT followed by primary care since January 2013. 11. History of moderate Mitral regurgitation 12. Severe kyphoscoliosis getting PT and OT VS, I&O, 24H, Fishbone Vital Signs/I&O Vital Signs Date Time Temp Pulse Resp B/P (MAP) Pulse Ox O2 Delivery O2 Flow Rate FiO2 12/04/16 09:00 Room Air 12/04/16 06:00 98.3 80 16 131/68 (89) 92 12/03/16 06:00 2.0 12/02/16 15:19 30 I&O- Last 24 Hours up to 6 AM 12/04/16 05:59 Intake Total 1340 ml Output Total 200 ml Balance 1140 ml Laboratory Data 24H LABS Laboratory Tests 2 12/04/16 06:40: White Blood Count 5.0, Red Blood Count 3.98L, Hemoglobin 11.7L, Hematocrit 37.2 , Mean Corpuscular Volume 93.4, Mean Corpuscular Hemoglobin 29.4, Mean Corpuscular Hemoglobin Concent 31.5L, Red Cell Distribution Width 14.7H, Platelet Count 273, Neutrophils (%) (Auto) 68.2H, Lymphocytes (%) (Auto) 17.1L, Monocytes (%) (Auto) 6.1H, Eosinophils (%) (Auto) 6.5H, Basophils (%) (Auto) 0.2 , Neutrophils # (Auto) 3.4, Lymphocytes # (Auto) 0.9L, Monocytes # (Auto) 0.3, Eosinophils # (Auto) 0.3, Basophils # (Auto) 0.0, Large Unclassified Cells % 1.8 , Large Unclassified Cells # 0.1, Anion Gap 2L, Glomerular Filtration Rate > 60.0, Blood Urea Nitrogen 29H, Creatinine 0.80, Sodium Level 136, Potassium Level 4.6, Chloride Level 98, Carbon Dioxide Level 36H, Calcium Level 8.4L CBC/BMP Laboratory Tests 12/04/16 06:40 Red Blood Count 3.98 L, Mean Corpuscular Volume 93.4, Mean Corpuscular Hemoglobin 29.4, Mean Corpuscular Hemoglobin Concent 31.5 L, Red Cell Distribution Width 14.7 H, Neutrophils (%) (Auto) 68.2 H, Lymphocytes (%) (Auto ) 17.1 L, Monocytes (%) (Auto) 6.1 H, Eosinophils (%) (Auto) 6.5 H, Basophils (% ) (Auto) 0.2, Neutrophils # (Auto) 3.4, Lymphocytes # (Auto) 0.9 L, Monocytes # (Auto) 0.3, Eosinophils # (Auto) 0.3, Basophils # (Auto) 0.0, Calcium Level 8.4 L Microbiology Microbiology 11/27/16 Blood Culture - Final, Complete NO GROWTH AFTER 5 DAYS 11/27/16 Blood Culture - Final, Complete NO GROWTH AFTER 5 DAYS 11/28/16 Acid Fast Stain - Final, Resulted 11/28/16 Mycobacterial Culture, Resulted Pending 11/28/16 Fungal Smear - Final, Resulted 11/28/16 Fungal Culture, Resulted Pending 11/28/16 Gram Stain - Final, Complete 11/28/16 Anaerobic Culture - Final, Complete 11/28/16 Body Fluid Culture - Final, Complete 11/27/16 Influenza Virus Type A Antigen - Final, Complete 11/27/16 Influenza Virus Type B Antigen - Final, Complete YAZMIN BADILLO MD Dec 04, 2016 12:55
[2016-12-04 13:50] VITALS: BP 119/59
[2016-12-04] MEDS: RIVAROXABAN 20 MG TAB (XARELTO) PO SCH (13:50)
[2016-12-04] MEDS: LACTOBACILLUS ACIDOPHILUS CAP (BACID) PO SCH ×2 (13:50→21:37)
[2016-12-04] MEDS: METOPROLOL TART 25 MG TABLET PO SCH ×2 (13:50→21:38)
[2016-12-04 14:00] VITALS: BP 126/62
[2016-12-04 22:00] VITALS: BP 131/64
[2016-12-05 06:00] VITALS: BP 125/67
[2016-12-05 07:23] LABS: BASO # 0.1 K/mm3 (0.0-0.2); BASO % 0.9 % (0.0-1.0); EOS # 0.4 K/mm3 (0.0-0.50); EOS % 5.2 % (0.0-3.0); LARGE UNSTAINED CELL # 0.1 K/mm3 (0.0-0.4); LARGE UNSTAINED CELL % 1.4 % (0.0-4.0); LYMPH # 1.1 K/mm3 (1.5-4.5); LYMPH % 15.3 % (24.0-44.0); MEAN CORPUSCULAR HEMOGLOBIN 29.6 pg (27.0-33.0); MEAN CORPUSCULAR HGB CONC 31.9 g/dl (32.0-36.5); MONO # 0.3 K/mm3 (0.0-0.8); MONO % 4.8 % (0.0-5.0); NEUTROPHILS # 5.2 K/mm3 (1.8-7.7); NEUTROPHILS % 72.4 % (36.0-66.0); PLATELET COUNT, AUTOMATED 276 k/mm3 (150-450); RED CELL DISTRIBUTION WIDTH 14.8 % (11.5-14.5); WHITE BLOOD COUNT 7.2 K/mm3 (4.0-10.0)
[2016-12-05 07:41] LABS: ANION GAP 2 MEQ/L (8-16); BLOOD UREA NITROGEN 27 MG/DL (7-18); CALCIUM LEVEL 8.9 MG/DL (8.8-10.2); CARBON DIOXIDE LEVEL 37 MEQ/L (21-32); CHLORIDE LEVEL 99 MEQ/L (98-107); GLOMERULAR FILTRATION RATE > 60.0 (>32); GLUCOSE, FASTING 106 MG/DL (83-110); POTASSIUM SERUM 4.9 MEQ/L (3.5-5.1); SODIUM LEVEL 138 MEQ/L (136-145)
[2016-12-05] MEDS: LACTOBACILLUS ACIDOPHILUS CAP (BACID) PO SCH (08:57)
[2016-12-05] MEDS: AUGMENTIN 875 MG TAB PO SCH (08:57)
[2016-12-05] MEDS: NYSTATIN 100,000 UNITS/GM TOPICAL PWD 15 GM TOP SCH (08:57)
[2016-12-05] MEDS: ENOXAPARIN 30 MG/0.3 ML SYR (J1650) SC SCH (08:57)
[2016-12-05 08:58] VITALS: BP 125/67
[2016-12-05] MEDS: RIVAROXABAN 20 MG TAB (XARELTO) PO SCH (08:58)
[2016-12-05] MEDS: METOPROLOL TART 25 MG TABLET PO SCH (08:58)
[2016-12-05] MEDS ORDERED: FUROSEMIDE 20 MG TAB PO SCH (09:00)
[2016-12-05 14:00] VITALS: BP 118/61
--- NOTE | 2016-12-09 01:59 | DSES ---
DATE OF ADMISSION: 11/27/2016 DATE OF DISCHARGE: 12/05/2016 PRIMARY CARE PROVIDER: Terrence Olivarez MD. DISCHARGE DIAGNOSES: 1. Acute hypoxic and hypercarbic respiratory failure due to decompensated heart failure and pneumonia. 2. Severe kyphoscoliosis with restrictive airway disease. 3. Left lower lobe pneumonia. 4. Diastolic congestive heart failure, acute on chronic. 5. Atrial fibrillation on Xarelto. 6. Diabetes. 7. Peripheral vascular disease. 8. Mitral regurgitation. 9. History of pelvic mass on CT scan followed by primary since January of 2013. 10. Pleural effusion status post thoracocentesis 11. Acute kidney injury, resolved. 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 She was initially very hypoxic requiring nonrebreather, saturating only in high 80s. She was initially placed on bilevel positive airway pressure (BiPAP) without any improvement in respiratory distress. Patient was found to have acute on chronic hypoxic and hypercarbic respiratory failure with chest x-ray showing pulmonary edema and large pleural effusion and also pneumonia on the left lower lobe. Patient was started on antibiotics and aggressive diuresis. Subsequently, patient had a thoracocentesis done with removal of 1020 mL of orange-colored pleural fluid. The procedure was performed on 11/28/2016. Patient's respiratory symptoms improved after thoracocentesis, diuresis and patient's breathing improved and patient was successful taken off BiPAP treatment and then transferred to floor. On the floor, patient was continued on diuresis. Patient responded further to diuresis and was successfully weaned off oxygen. She finished 7 days of antibiotics for pneumonia. Patient was seen by physical therapy and after a few sessions she gained back her level of strength and on the day of discharge patient was found to be functionally at her baseline. Patient did not have any complaints. Patient's vital signs were stable. PHYSICAL EXAMINATION: VITAL SIGNS: Temperature 99.4, pulse 75, respiratory rate 18, blood pressure 118/61, pulse oximetry 96% in room air. GENERAL: Patient awake, alert, oriented times three, sitting up in chair in no acute distress. HEENT: Normocephalic, atraumatic. Moist mucous membranes. Anicteric eyes. CHEST: There are crackles present on the left base and up to the mid of chest. No wheezing or rhonchi. Good bilateral air entry. CARDIOVASCULAR: S1, S2, irregular. Rate controlled. No rub, murmur or gallop. ABDOMEN: Obese, soft, nontender, bowel sounds present. EXTREMITIES: Trace edema. LABORATORY DATA: WBC 7.2, hemoglobin 12, platelets 276. Sodium 138, potassium 4.9, chloride 99, bicarbonate 37, BUN 27, creatinine 0.8. Initial blood gas was 7.17, pCO2 97, pO2 70. After improvement her blood gas showed pH of 7.48, pCO2 of 53, pO2 of 57. INR was 1.95 on admission. Pleural fluid showed protein of 2.9, total cells of 777, 93% lymphocytes, 7% neutrophils. Fluid albumin level was 1.5 and serum albumin level was 2.1. LDH was 67. Fluid amylase was 22. Fluid triglyceride was 17. Patient's pleural fluid was felt to be exudative. Radiology showed bilateral pleural effusions with infiltrate in the left lung. Left hemithorax is almost completely opacified on admission. Repeat chest x-ray after 4 days of admission showed improvement in pleural effusion, but there is persistence of large left-sided lung infiltrate. DISPOSITION: Patient is discharged home in a stable condition. DISCHARGE INSTRUCTIONS: Patient to followup with primary care provider in 1 week. 2-gram sodium diet. Fluid restriction 1.5 liters in 24 hours. Activity as tolerated. MTDD
== END 2016-12-05 16:50 | disposition home or self-care (01) | DRG 291 ==
LOC: M ED 09:02 → M ED INP 09:51 → M ICU 11:10 → M MS5PR 11-29 14:38
PROVIDERS: ADMIT Internal Medicine Pulmonary Disease; ATTEND Internal Medicine Nephrology
PROC: 0W9B3ZZ Drainage of Left Pleural Cavity, Percutaneous Approach (ICD-10-PCS; principal; 2016-11-28)
DX: I11.0 Hypertensive heart disease with heart failure (principal); J96.01 Acute respiratory failure with hypoxia; J96.02 Acute respiratory failure with hypercapnia; J18.9 Pneumonia, unspecified organism; E46 Unspecified protein-calorie malnutrition; J90 Pleural effusion, not elsewhere classified; N17.9 Acute kidney failure, unspecified; I50.33 Acute on chronic diastolic (congestive) heart failure; E11.51 Type 2 diabetes mellitus with diabetic peripheral angiopathy without gangrene; Z66 Do not resuscitate; I48.91 Unspecified atrial fibrillation; I34.0 Nonrheumatic mitral (valve) insufficiency; M41.9 Scoliosis, unspecified; E66.9 Obesity, unspecified; J98.4 Other disorders of lung; Z79.01 Long term (current) use of anticoagulants; Z79.899 Other long term (current) drug therapy; Z68.34 Body mass index [BMI] 34.0-34.9, adult

== ENCOUNTER 2017-02-10 09:03 | Inpatient (IN) | payer MEDICARE, MEDICAID ==
[2017-02-10] VITALS (18 sets, daily range): BP systolic 85–114; BP diastolic 44–63
[~2017-02-10 09:03] MED LIST changes: +BACITAB PO; +METO1TAB87 PO
[2017-02-10] MEDS ORDERED: NS 1,000 ML IV SCH ×2 (09:11→13:29)
[2017-02-10 09:50] LABS: ABG BASE EXCESS -12.6 (-2.0-2.0); ABG HCO3 13.2 MEQ/L (22.0-26.0); ABG PARTIAL PRESSURE CO2 29.4 mmHg (35.0-45.0); ABG PARTIAL PRESSURE O2 54.8 mmHg (75.0-100.0); ABG STANDARD HCO3 14.1 MEQ/L (22.0-26.0); ABG TOTAL CO2 14.1 MEQ/L (23.0-31.0)
[2017-02-10] MEDS ORDERED: NS 1,000 ML IV ONE ×2 (10:00→10:15)
[2017-02-10] MEDS ORDERED: cefTRIAXone SOD 2 GM in D5W MINI-BAG PLUS 50 ML IV ONE (10:00)
[2017-02-10] MEDS ORDERED: NS 500 ML IV ONE (10:15)
[2017-02-10 10:23] LABS: ALBUMIN 2.4 GM/DL (3.2-5.2); ALBUMIN/GLOBULIN RATIO 0.71 (1.00-1.93); ALKALINE PHOSPHATASE 120 U/L (45-117); ALT/SGPT 21 U/L (12-78); ANION GAP 12 MEQ/L (8-16); AST/SGOT 13 U/L (15-37); BILIRUBIN,DIRECT 0.1 MG/DL (0.0-0.2); BILIRUBIN,TOTAL 0.3 MG/DL (0.2-1.0); BLOOD UREA NITROGEN 70 MG/DL (7-18); CALCIUM LEVEL 7.7 MG/DL (8.8-10.2); CARBON DIOXIDE LEVEL 17 MEQ/L (21-32); CHLORIDE LEVEL 116 MEQ/L (98-107); CREATININE FOR GFR 1.97 MG/DL (0.55-1.02); GLOMERULAR FILTRATION RATE 25.8 (>32); GLUCOSE, FASTING 139 MG/DL (83-110); SODIUM LEVEL 145 MEQ/L (136-145); TOTAL PROTEIN 5.8 GM/DL (6.4-8.2)
[2017-02-10 10:24] LABS: BASO % 0.5 % (0.0-1.0); EOS # 0.1 K/mm3 (0.0-0.50); EOS % 1.7 % (0.0-3.0); LARGE UNSTAINED CELL # 0.1 K/mm3 (0.0-0.4); LARGE UNSTAINED CELL % 1.5 % (0.0-4.0); LYMPH # 0.8 K/mm3 (1.5-4.5); LYMPH % 10.6 % (24.0-44.0); MEAN CORPUSCULAR HEMOGLOBIN 27.2 pg (27.0-33.0); MEAN CORPUSCULAR HGB CONC 29.9 g/dl (32.0-36.5); MEAN CORPUSCULAR VOLUME 90.7 fl (80.0-96.0); MONO # 0.3 K/mm3 (0.0-0.8); MONO % 5.3 % (0.0-5.0); NEUTROPHILS # 5.1 K/mm3 (1.8-7.7); NEUTROPHILS % 80.3 % (36.0-66.0); OSMOLALITY SERUM 319 MOSM/KG (280-301); PLATELET COUNT, AUTOMATED 281 k/mm3 (150-450); RED CELL DISTRIBUTION WIDTH 15.6 % (11.5-14.5); WHITE BLOOD COUNT 6.4 K/mm3 (4.0-10.0)
[2017-02-10 10:32] LABS: POTASSIUM SERUM 5.8 MEQ/L (3.5-5.1)
--- NOTE | 2017-02-10 10:39 | REP ---
CT Head without contrast HISTORY: Altered mental status COMPARISON: None Areas of decreased attenuation are present in the periventricular and subcortical white matter. This represents small-vessel ischemic disease. There is no intraparenchymal hemorrhage, acute infarct, mass or midline shift. The ventricular system and cortical sulci are dilated consistent with mild volume loss. There is no extra cerebral collection. There is no fracture. The visualized sinuses are clear. IMPRESSION: 1. Small vessel ischemic disease. 2. Mild volume loss. Signed by Rupert Pantoja MD 02/10/2017 10:30 A
--- NOTE | 2017-02-10 10:50 | REP ---
PORTABLE CHEST: AP portable view of the chest is performed and compared to a prior study of 12/01/2016. There is significant improvement of the left lung infiltrate. There does appear to be a left pleural effusion and some mild adjacent atelectasis or infiltrate. There is mild cardiomegaly. There is a hiatal hernia. Patient is rotated towards the left with the chin overlying the left lung apex. IMPRESSION: Mild to moderate left pleural effusion with mild adjacent left basilar atelectasis/infiltrate. Signed by Alan Uribe MD 02/10/2017 04:01 P
--- NOTE | 2017-02-10 10:52 | REP ---
CT CERVICAL SPINE WITHOUT CONTRAST: HISTORY: Altered mental status. There is no acute fracture or subluxation. Disc bulges with associated osteophyte formation are present at the C5-6 and C6-7 levels. There is minimal narrowing of the spinal canal. Uncinate process and/or facet hypertrophy are present at the C2-3 through C7-T1 levels. These findings produce minimal to moderate narrowing of the neural foramina. The C3-4 through C6-7 intervertebral discs are decreased in height consistent with disc degeneration. Small scattered collections of subcutaneous air are present in the right neck and supraclavicular area. IMPRESSION: 1. There is no disc bulge or herniation. 2. There is cervical spondylosis at the C2-3 through C7-T1 levels. Signed by Rupert Pantoja MD 02/10/2017 10:56 A
[2017-02-10] MEDS ORDERED: METF500T13 PO (13:06)
[2017-02-10] MEDS ORDERED: ACETAMINOPHEN TAB 650MG DOSE (2X325MG) PO PRN (13:30)
[2017-02-10] MEDS ORDERED: ONDANSETRON 4MG/2ML VIAL (J2405) IV PRN (13:30)
[2017-02-10 14:48] LABS: FERRITIN 13 NG/ML (8-252); FREE T4 1.13 NG/DL (0.76-1.46); PERCENT SATURATION 4.6 % (13.2-45.0); TOTAL IRON BINDING CAPACITY 326 UG/DL (250-450)
[2017-02-10 14:53] LABS: RETIC HEMOGLOBIN CONTENT CHr 27.1 PG (24-36); RETICULOCYTE % 2.39 % (0.5-1.5)
[2017-02-10 14:54] LABS: RETICULOCYTE ABSOLUTE ADVIA212 27 x10(9)/L (17-77)
--- NOTE | 2017-02-10 15:04 | HPE ---
DATE OF ADMISSION: 02/10/2017 PRIMARY CARE PROVIDER: Pari Irvin CHIEF COMPLAINT: "My foot was bleeding." SUMMARY OF PRESENTATION: This is an 81-year-old who got up very early this morning to go to the bathroom. Apparently, her foot was bleeding and created a puddle of slippery blood on the floor. She slipped and fell. She did not lose consciousness. She did not strike her head. She has no back pain. She yelled until the neighbor heard her and was brought to the hospital for evaluation. In the hospital, she was found to be hypotensive with anemia and the hospitalist workers compensation paralegal this morning was called for admission. Upon seeing the patient this afternoon, her only complaint is thirst. She says that she has been feeling well recently, but she strikes me as an exceedingly poor historian. She is not describing chest pain, shortness of breath. She has some discomfort in her left lower leg, but she says that is unchanged in many days. She does not normally bleed from her feet or legs, does not know why she was bleeding, although she is on Xarelto. PAST MEDICAL HISTORY: Notable for: 1. Diabetes. 2. Hypertension. 3. Diastolic congestive heart failure (CHF) with a normal ejection fraction as of September 2016. 4. Bilateral lower extremity cellulitis. 5. Chronic kidney disease. 6. Atrial fibrillation. 7. History of pelvic mass. 8. Bilateral venous stasis in the lower extremities. 9. Right lower extremity lesion. SURGICAL HISTORY: Notable for: 1. Right ankle repair and then removal of hardware. ALLERGIES: No known drug allergies. MEDICATIONS: At home are listed as: - metoprolol - Lasix - Xarelto - metformin FAMILY HISTORY: Notable for her father who of unknown cause. Mother at age 100 years old. SOCIAL HISTORY: She walks with a walker. She was using a walker this morning. She does not drink any alcohol. She is a nonsmoker. She has a sister at bedside. Sister is not well versed in the patient's daily activities. REVIEW OF SYSTEMS: I do not believe this is meaningfully obtainable apart from what I have previously said. PHYSICAL EXAMINATION: Temperature is 97.5, pulse 74, respiratory rate 16, blood pressure after 2 liters of fluid is 70/46, pulse oximetry is 98% on what would appear to be room air. She is awake, answering simple questions, asking for water. HEENT: Head is normocephalic, sinuses are nontender. Pupils are equal, round and reactive. Mucous membranes are quite tacky. NECK: Supple. LUNGS: Breathing is symmetrically diminished. I:E ratio is 1:3. Chest x-ray shows evidence of left pleural effusion. HEART: Distant sounding. There is a 2/6 murmur at the right sternal border. I do not appreciate radiation to the carotid. The patient is somewhat noncompliant and was holding her breath during the examination. ABDOMEN: Soft, doughy, nontender to deep palpation. There is tense woody in the bilateral lower extremities extending to at least her knees. There is evidence of relatively significant chronic venous stasis changes and fungal nails and poor state of upkeep. There is crusted blood around several of the nails, I believe the source of the bleeding with likely a torn nail bed. There is no current bleeding noted. White cell count is 6.4, hemoglobin 6.2. Most recent hemoglobin was 12.0 on 12/05. Platelets are 281. Sodium is 145, potassium 5.8, chloride 116, carbon dioxide 17, anion gap 12, BUN is 70, creatinine 1.97. Baseline creatinine would appear to be around 0.8. Osmolality is 3.19. Lactic acid 4.2, calcium 7.7, AST 13, ALT 21, alkaline phosphatase 120, CK 80, troponin I less than 0.02, TSH 6.72, albumin is 2.4, pH is 7.27, PCO2 of 29, PO2 of 54, bicarbonate is 13. UA is unremarkable. Urine and blood cultures are pending. Cervical spine shows no disc bulge or herniation. Cervical spondylolysis of C2-C3, C7-T1. Chest x-ray shows right sided effusion and most likely plate-like atelectasis. Head CT shows no acute findings. EKG shows the patient to be in atrial fibrillation with controlled rate. There are septal and inferior T waves, which appear to be old. ASSESSMENT: This is an 81-year-old with hypotension in the setting of recent bleeding, likely acute on chronic acute blood loss anemia and dehydration. PLAN: 1. Heme. I did assess this patient at bedside. The patient will need aggressive fluid resuscitation. She has received 2 liters of fluid already and will need blood as well. Dr. Ramires, my colleague, is placing a central line to measure central venous pressure. The patient will be placed in the intensive care unit (ICU). There is no history or evidence of gastrointestinal bleed. We will check stool for occult blood. There is no evidence of blood in the urine. Most likely complicated by acute renal failure and use of Xarelto. 2. Congestive heart failure (CHF). The patient has a history of diastolic dysfunction. We will monitor her central venous pressure. The patient has previously been open to the idea of BiPAP and so I will place the patient in the intensive care unit. 3. The patient has acute renal failure. This is likely related to dehydration and acute blood loss anemia. We will consult nephrology as deemed clinically necessary. 4. The patient has a history of atrial fibrillation. We will hold anticoagulation at this point. There is no reversal agent for Xarelto. 5. The patient has a history of a pelvic mass. 6. The patient has bilateral venous stasis ulcers. Could benefit from some wound care during this stay. Was treated with antibiotics, presumably for lower extremity ulcer while in the emergency department. 7. Deep vein thrombosis (DVT) prophylaxis. At this point it will be her remaining Xarelto. That can be reconsidered depending on the clinical course. She does have a DO NOT RESUSCITATE, DO NOT INTUBATE form, which has been scanned into the chart.
--- NOTE | 2017-02-10 15:14 | REP ---
CT STUDY OF THE CHEST WITHOUT CONTRAST: HISTORY: A fall, effusion. FINDINGS: The patient is rotated somewhat to the left. The patient was apparently unable to breath hold. There is no evidence of pneumothorax. There is some plate-like atelectasis however in the left upper lobe. A ltibjbyh-tu-zhgnz size hiatal hernia is noted. No infiltrate is seen. Moderate cardiomegaly is observed. There is a right internal jugular central venous line in the superior vena cava. No hilar or mediastinal mass or adenopathy is appreciated. There is a tiny sliver of left pleural effusion. No right pleural effusion is evident. The visualized upper abdominal structures are unremarkable. There are degenerative changes in the spine. No bony destructive lesion is seen. IMPRESSION: Central venous line in the superior vena cava. Minimal amount of left pleural fluid. Large hiatal hernia. Discoid atelectasis left upper lobe. Signed by Hernando Hernandez MD 02/10/2017 03:36 P
[2017-02-10 15:17] LABS: INR 2.07
--- NOTE | 2017-02-10 15:57 | REP ---
Bilateral hip: Five views. History: Injury in a fall. Findings: Five views of the hips and pelvis are presented. The bony pelvic ring is intact. No pelvic or sacral fracture is seen. No hip fractures seen on either side. There is mild bilateral osteoarthritis and there is bilateral greater trochanteric tendon insertion site spurring. Impression: No fracture noted. Signed by Hernando Hernandez MD 02/10/2017 05:11 P
--- NOTE | 2017-02-10 18:16 | RO ---
DATE OF PROCEDURE: 02/10/2017 PREPROCEDURE DIAGNOSIS: Hypotension. POSTPROCEDURE DIAGNOSIS: Hypotension. PROCEDURE: Right internal jugular ( IJ) triple lumen central line. SURGEON: Dr. Pauline Ramires DOLL WIG MAKER: None. ANESTHESIA: 1% local lidocaine. VENTILATION: 100% nonrebreather for the duration of procedure. The patient was only on nasal cannula prior to the procedure. SEDATION: None. ESTIMATED BLOOD LOSS: 10 mL. DESCRIPTION OF PROCEDURE: The patient was placed in supine position. Right side of the patient's neck was cleaned with Chloraprep and patient covered in the usual manner. Ultrasound with sterile probe cover was used to locate the patient's right IJ. 1% local lidocaine was injected with ultrasound guidance. Central line needle was inserted with ultrasound guidance. Blood return was obtained. Wire was inserted through the needle and subsequently the needle was removed. Wire position was confirmed with ultrasound. Triple lumen central line was placed via Seldinger technique and guidewire was removed and all three ports of the central line were flushed with normal saline and triple lumen central line was secured with clamps and dressing. The patient tolerated the procedure without any complications. The patient was actually able to get a CT scan of the chest done prior to the portable x-ray, which confirmed the position and showed no evidence of pneumothorax. [facility]ITALBuck
[2017-02-10 19:13] LABS: CALCIUM LEVEL 7.4 MG/DL (8.8-10.2); CREATININE FOR GFR 1.71 MG/DL (0.55-1.02); GLOMERULAR FILTRATION RATE 30.4 (>32)
[2017-02-10 19:17] LABS: POTASSIUM SERUM 5.5 MEQ/L (3.5-5.1)
--- NOTE | 2017-02-10 19:42 | ECGEPIP ---
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
--- NOTE | 2017-02-10 23:51 | ECHO ---
DATE OF PROCEDURE: 02/10/2017 REFERRING PHYSICIAN: Dr. Jaquan Mustafa INDICATION: Localized edema. HEIGHT: 59 inches. WEIGHT: 167 pounds. 2D MEASUREMENTS: Left atrium: 4.2 cm Aortic root: 2.8 cm Ventricular septum: 1.20 cm Posterior wall: 1.23 cm Left ventricle diastole: 3.7 cm LVOT: 1.8 cm Inferior vena cava: 2.1 cm DOPPLER MEASUREMENTS: Mild aortic regurgitation. Mild aortic stenosis. Peak aortic valve velocity: 265 cm/s Peak aortic valve gradient: 28 mmHg Mean aortic valve gradient: 15 mmHg LVOT velocity: 98.5 cm/s LVOT VTI: 23.3 cm Moderate mitral regurgitation. No mitral stenosis. Moderate tricuspid regurgitation. Estimated right ventricle systolic pressure: At least 72 mmHg assuming a pressure of at least 20 mmHg. Very mild pulmonic regurgitation. DESCRIPTION: Rhythm was atrial fibrillation. Image quality was fair. This was a 2D, M-mode, color flow Doppler and pulse wave Doppler examination and included mitral annular tissue Doppler. CONCLUSIONS: 1. Suggestive of severe elevation of estimated right ventricle systolic pressure (at least 72 mmHg, assuming a pressure of at least 20 mmHg). Inferior vena cava plethora with elevated central venous pressure estimated to be at least 20 mmHg. Normal right ventricle size and systolic function. Moderate right atrial dilatation by visual assessment. Structurally normal appearing tricuspid leaflets. Moderate tricuspid regurgitation. 2. Very mild concentric left ventricle hypertrophy. Normal left ventricle internal dimensions. Normal left ventricle wall motion and wall thickening. Normal left ventricular (LV) systolic function. Left ventricular ejection fraction (LVEF) 70-75% by visual estimate. Unable to assess LV diastolic function in the setting of atrial fibrillation. 3. Degenerative, calcific aortic valve disease with moderate focal thickening and focal calcific deposits of a 3-cuspid aortic valve. Mild reduction in aortic cusp mobility. No fusion of the aortic cusps. Mild aortic stenosis and mild aortic regurgitation. 4. Moderate mitral annular calcification. Moderate mitral regurgitation. No mitral stenosis. 5. Moderate left atrial dilatation. 6. Small either stretched patent foramen ovale or small secundum atrial septal defect with left-right atrial shunt, which appears to be small. 7. Very small pericardial effusion.
[2017-02-11] VITALS (18 sets, daily range): BP systolic 78–113; BP diastolic 46–56
[2017-02-11] MEDS ORDERED: SODIUM CHLORIDE 0.9% 1000 ML IV ONE (01:15)
[2017-02-11 01:23] LABS: CALCIUM LEVEL 7.7 MG/DL (8.8-10.2); CREATININE FOR GFR 1.55 MG/DL (0.55-1.02); GLOMERULAR FILTRATION RATE 34.1 (>32); POTASSIUM SERUM 5.1 MEQ/L (3.5-5.1)
--- NOTE | 2017-02-11 04:30 | REPUSA ---
CLINICAL HISTORY: Abdominal pain. TECHNIQUE: Multiple axial, sagittal and coronal CT images were obtained through the abdomen and pelvi s without administration of oral or IV contrast material. COMMENTS: Comparison to the prior exam on 09/30/2012. The liver is mildly enlarged without mass or defect. There is no intra or extrahepatic biliary ductal dilatation. The spleen is normal. The gallbladder is within normal limits. The pancreas is of normal contour and attenuation characteristics. There is no evidence of adrenal mass. The kidneys are normal in size, shape and configuration. No renal or ureteral calculi are identified. There is no hydroureter or hydronephrosis. There is no evidence for appendicitis. There is no bowel wall thickening. No evidence for small or la rge bowel obstruction. There is no evidence of abdominal ascites or lymphadenopathy. There is no evidence of intrinsic or extrinsic bladder mass. There is no pelvic ascites or lymphadeno alejandro. Fluid filled small bowels. Significantly enlarged fibroid uterus. Urinary catheter balloon is noted in the bladder. Moderate lar ge bowel fecal stasis. Images of the lung bases show no evidence of pleural or parenchymal mass. Small bilateral pleural eff usions. Passive atelectatic airspace disease of the lower lobes. Moderate sliding hiatal hernia. The bony structures are free of lytic or blastic lesions. Multilevel degenerative changes are seen in volving the thoracolumbar spine. Scattered calcifications are seen involving the aorta and major branches compatible with atherosclero sis. IMPRESSION: Pleural effusions. Passive atelectatic airspace disease of the lower lobes. Anasarca. Unchanged significantly enlarged fibroid uterus. No evidence of retroperitoneal hematoma/hemorrhage. Ileus. Thank you for your kind referral of this patient.
[2017-02-11 05:29] LABS: MEAN CORPUSCULAR HEMOGLOBIN 29.6 pg (27.0-33.0); MEAN CORPUSCULAR HGB CONC 32.6 g/dl (32.0-36.5); MEAN CORPUSCULAR VOLUME 90.8 fl (80.0-96.0); WHITE BLOOD COUNT 7.1 K/mm3 (4.0-10.0)
[2017-02-11 05:52] LABS: CALCIUM LEVEL 7.3 MG/DL (8.8-10.2); CREATININE FOR GFR 1.41 MG/DL (0.55-1.02)
[2017-02-11 05:53] LABS: POTASSIUM SERUM 5.2 MEQ/L (3.5-5.1)
[2017-02-11] MEDS ORDERED: FUROSEMIDE 20 MG/2 ML VIAL (J1940) IV ONE (08:45)
--- NOTE | 2017-02-11 12:08 | IPNPDOC ---
Subjective Date Seen The patient was seen on 02/11/17. Subjective Chief Complaint/HPI The patient is a 81-year-old female admitted with a reason for visit of Anemia, Hypotension. Events since last encounter No complaints this morning, no sites of bleeding notes on the legs or feet , no other source of bleeding identified. hypotension resolved with blood and ivf, still requiring oxygen , complains of chronic cough which is worse this am , no fever or chills, no chest pain , denied sob , no nausea or vomiting or diarrhea , no abdominal pain. Had a discussion about advance directives with patient . WHEN ASKED IF SHE HAS ANY HCP OR FAMILY MEMBER WITH WHOM SHE WANTS ME TO TALK ABOUT THIS SHE ADAMANTLY SAYS THAT SHE WILL MAKE HER OWN DECISION. She then said that she did not want to be put on any machines . She also said that if her heart stops she want to go peacefully and did not want any chest compressions or to suffer any pain. Patient then signed on the molst form and now is DNR and DNI. Objective Physical Examination General Exam: Positive: Alert, Cooperative, No Acute Distress Eye Exam: Positive: PERRLA, Conjunctiva & lids normal, EOMI, Negative: Sclera icteric Neck Exam: Positive: Supple, Negative: JVD, thyromegaly Chest Exam: Positive: Rales, Rhonchi, Wheezing Heart Exam: Positive: Rate Normal, Normal S1, Normal S2 Telemetry: Positive: No significant arrhythmia Abdomen Exam: Positive: Normal bowel sounds, Soft, Negative: Tenderness, Hepatospenomegaly Extremity Exam: Positive: Edema, Normal pulses, Other (bilateral venous stasis changes. ), Negative: Clubbing, Cyanosis Assessment /Plan Problems (1) Acute blood loss anemia Status: Acute Problem Text: from bleeding from leg wound. Has acute on chronic anemia , etiology on anemia still not determined has iron deficiency on iron supplementation. (2) Hypotension Status: Acute Problem Text: due to blood loss. better this am (3) Congestive heart failure Status: Acute Problem Text: diastolic chf and corpulmonale. seems to have some acute exacerbation will give lasix iv. (4) Pulmonary hypertension Status: Chronic (5) Right heart failure Status: Chronic (6) CKD (chronic kidney disease), stage III Status: Chronic Response to Treatment: Stable (7) Diabetes Status: Chronic Problem Text: on diet control (8) A-fib Status: Chronic Problem Text: rate controlled, no on any anticoagulation due to severe anemia and bleeding. will restart after discharge. (9) Pelvic mass Status: Chronic (10) Kyphoscoliosis Status: Chronic (11) Fall Status: Acute Problem Text: after slipping on blood, no injury sustained. Plan/VTE VTE Prophylaxis Ordered?: Yes Plan/Urinary Catheter Reason for insertion/continuin: Critical Pt monitoring VS, I&O, 24H, Fishbone Vital Signs/I&O Vital Signs Date Time Temp Pulse Resp B/P (MAP) Pulse Ox O2 Delivery O2 Flow Rate FiO2 02/11/17 08:00 Nasal Cannula 1.0 02/11/17 08:00 97.5 95 100/55 (70) 100 02/11/17 04:00 20 I&O- Last 24 Hours up to 6 AM 02/11/17 05:59 Intake Total 4545 ml Output Total 545 ml Balance 4000 ml Laboratory Data 24H LABS Laboratory Tests 2 02/10/17 18:04: Urine Appearance CLOUDYH, Urine Color YELLOW, Urine pH 5.0, Urine Specific [place] 1.014, Urine Protein NEGATIVE, Urine Glucose (UA) NEGATIVE, Urine Ketones TRACEH, Urine Urobilinogen 0.2, Urine Bilirubin NEGATIVE, Urine Leukocyte Esterase TRACEH, Urine Blood 2+H, Urine Nitrite NEGATIVE, Urine WBC ( Auto) 17H, Urine RBC (Auto) 102H, Urine Hyaline Casts (Auto) 21, Urine Bacteria (Auto) 1+H, Urine Squamous Epithelial Cells 4, Urine Amorphous Sediment SMALLH, Urine Mucus (Auto) SMALL, Urine Sperm (Auto) , Anion Gap 10, Glomerular Filtration Rate 30.4L, Lactic Acid Level 1.0, Blood Urea Nitrogen 69H, Creatinine 1.71H, Sodium Level 146H, Potassium Level 5.5H, Chloride Level 119H, Carbon Dioxide Level 17L, Calcium Level 7.4L, Total Creatine Kinase 114, Creatine Kinase MB 4.7H, Creatine Kinase MB Relative Index 4.12H, Troponin I 0.04# 02/11/17 00:44: Anion Gap 7L, Glomerular Filtration Rate 34.1, Lactic Acid Level 0.9, Blood Urea Nitrogen 64H, Creatinine 1.55H, Sodium Level 145, Potassium Level 5.1, Chloride Level 119H, Carbon Dioxide Level 19L, Calcium Level 7.7L, Total Creatine Kinase 116, Creatine Kinase MB 4.9H, Creatine Kinase MB Relative Index 4.22H, Troponin I 0.03# 02/11/17 05:13: Anion Gap 11, Glomerular Filtration Rate 38.0, Blood Urea Nitrogen 60H, Creatinine 1.41H, Sodium Level 148H, Potassium Level 5.2H, Chloride Level 120H, Carbon Dioxide Level 17L, Calcium Level 7.3L CBC/BMP Laboratory Tests 02/10/17 18:04 Calcium Level 7.4 L, Total Creatine Kinase 114 02/11/17 00:44 Calcium Level 7.7 L, Total Creatine Kinase 116 02/11/17 05:13 Calcium Level 7.3 L, Red Blood Count 2.87 L, Mean Corpuscular Volume 90.8, Mean Corpuscular Hemoglobin 29.6, Mean Corpuscular Hemoglobin Concent 32.6, Red Cell Distribution Width 15.0 H Microbiology Microbiology 02/10/17 Blood Culture - Preliminary, Resulted No growth after 24 hours . All specim... 02/10/17 Blood Culture - Preliminary, Resulted 02/10/17 Urine Culture, Received Pending YAZMIN BADILLO MD Feb 11, 2017 12:08
[2017-02-11] MEDS ORDERED: SLF 3 ML SYR IV PRN (14:00)
[2017-02-11] MEDS ORDERED: SODIUM CHLORIDE 0.9% INJ 10 ML SYR IV PRN (14:00)
[2017-02-11] MEDS: SODIUM CHLORIDE 0.9% INJ 10 ML SYR IV SCH ×2 (16:12→21:58)
[2017-02-11] MEDS: SLF 3 ML SYR IV SCH ×2 (16:16→21:58)
[2017-02-12] VITALS (8 sets, daily range): BP systolic 91–139; BP diastolic 54–67
[2017-02-12] MEDS: SODIUM CHLORIDE 0.9% INJ 10 ML SYR IV SCH ×3 (06:00→22:00)
[2017-02-12] MEDS: SLF 3 ML SYR IV SCH ×3 (06:00→20:15)
[2017-02-12 06:20] LABS: WHITE BLOOD COUNT 8.1 K/mm3 (4.0-10.0)
[2017-02-12 06:21] LABS: BASO % 0.2 % (0.0-1.0); EOS # 0.3 K/mm3 (0.0-0.50); EOS % 3.8 % (0.0-3.0); LARGE UNSTAINED CELL # 0.1 K/mm3 (0.0-0.4); LARGE UNSTAINED CELL % 1.1 % (0.0-4.0); LYMPH # 0.9 K/mm3 (1.5-4.5); LYMPH % 10.6 % (24.0-44.0); MEAN CORPUSCULAR HEMOGLOBIN 29.3 pg (27.0-33.0); MEAN CORPUSCULAR HGB CONC 31.5 g/dl (32.0-36.5); MEAN CORPUSCULAR VOLUME 93.1 fl (80.0-96.0); MONO # 0.5 K/mm3 (0.0-0.8); MONO % 6.7 % (0.0-5.0); NEUTROPHILS # 6.3 K/mm3 (1.8-7.7); NEUTROPHILS % 77.6 % (36.0-66.0); PLATELET COUNT, AUTOMATED 204 k/mm3 (150-450); RED CELL DISTRIBUTION WIDTH 15.7 % (11.5-14.5)
[2017-02-12 06:34] LABS: CALCIUM LEVEL 7.3 MG/DL (8.8-10.2); CREATININE FOR GFR 1.06 MG/DL (0.55-1.02); GLOMERULAR FILTRATION RATE 52.8 (>32)
[2017-02-12] MEDS ORDERED: FUROSEMIDE 40 MG/4 ML VIAL (J1940) IV ONE (06:45)
[2017-02-12] MEDS ORDERED: FUROSEMIDE 20 MG/2 ML VIAL (J1940) IV ONE (08:00)
--- NOTE | 2017-02-12 10:23 | IPNPDOC ---
Subjective Date Seen The patient was seen on 02/12/17. Subjective Chief Complaint/HPI The patient is a 81-year-old female admitted with a reason for visit of Anemia, Hypotension. Events since last encounter patient does not have any complaints today. hypotension resolved, cough better, hh stable , no fever or chills, denies abdominal pain Objective Physical Examination General Exam: Positive: Alert, Cooperative, No Acute Distress Eye Exam: Positive: PERRLA, Conjunctiva & lids normal, EOMI, Negative: Sclera icteric Neck Exam: Positive: Supple, Negative: JVD, thyromegaly Chest Exam: Positive: Rales, Rhonchi, Wheezing Heart Exam: Positive: Rate Normal, Normal S1, Normal S2, Murmurs (systolic) Telemetry: Positive: No significant arrhythmia Abdomen Exam: Positive: Normal bowel sounds, Soft, Negative: Tenderness, Hepatospenomegaly Extremity Exam: Positive: Edema, Normal pulses, Other (bilateral venous stasis changes. ), Negative: Clubbing, Cyanosis Assessment /Plan Problems (1) Acute kidney injury Status: Acute Problem Text: due to hypotension , and hypovolemia from acute blood loss now improving (2) Acute blood loss anemia Status: Resolved Problem Text: from bleeding from leg wound. Has acute on chronic anemia ,stool occult blood positive will test another. will give another unit of prbc also has iron deficiency. (3) Hypotension Status: Resolved Problem Text: due to blood loss. better this am (4) Congestive heart failure Status: Acute Problem Text: diastolic chf and corpulmonale. seems to have some acute exacerbation will give lasix iv. (5) Pulmonary hypertension Status: Chronic (6) Right heart failure Status: Chronic (7) CKD (chronic kidney disease), stage III Status: Chronic Response to Treatment: Stable (8) Diabetes Status: Chronic Problem Text: on diet control (9) A-fib Status: Chronic Problem Text: rate controlled, no on any anticoagulation due to severe anemia and bleeding. will restart after discharge. (10) Pelvic mass Status: Chronic (11) Kyphoscoliosis Status: Chronic (12) Fall Status: Acute Problem Text: after slipping on blood, no injury sustained. Plan/VTE VTE Prophylaxis Ordered?: Yes Plan/Urinary Catheter Reason for insertion/continuin: Critical Pt monitoring VS, I&O, 24H, Fishbone Vital Signs/I&O Vital Signs Date Time Temp Pulse Resp B/P (MAP) Pulse Ox O2 Delivery O2 Flow Rate FiO2 02/12/17 08:00 Nasal Cannula 1.0 02/12/17 08:00 98.0 97 18 139/64 (89) 97 I&O- Last 24 Hours up to 6 AM 02/12/17 06:00 Intake Total 1065 ml Output Total 1590 ml Balance -525 ml Laboratory Data 24H LABS Laboratory Tests 2 02/12/17 05:53: White Blood Count 8.1, Red Blood Count 2.75L, Hemoglobin 8.1L, Hematocrit 25.6L , Mean Corpuscular Volume 93.1, Mean Corpuscular Hemoglobin 29.3, Mean Corpuscular Hemoglobin Concent 31.5L, Red Cell Distribution Width 15.7H, Platelet Count 204, Neutrophils (%) (Auto) 77.6H, Lymphocytes (%) (Auto) 10.6L, Monocytes (%) (Auto) 6.7H, Eosinophils (%) (Auto) 3.8H, Basophils (%) (Auto) 0.2 , Neutrophils # (Auto) 6.3, Lymphocytes # (Auto) 0.9L, Monocytes # (Auto) 0.5, Eosinophils # (Auto) 0.3, Basophils # (Auto) 0.0, Large Unclassified Cells % 1.1 , Large Unclassified Cells # 0.1, Anion Gap 9, Glomerular Filtration Rate 52.8, Blood Urea Nitrogen 51H, Creatinine 1.06H, Sodium Level 148H, Potassium Level 5.0, Chloride Level 120H, Carbon Dioxide Level 19L, Calcium Level 7.3L CBC/BMP Laboratory Tests 02/11/17 16:08 02/11/17 21:57 02/12/17 05:53 Red Blood Count 2.75 L, Mean Corpuscular Volume 93.1, Mean Corpuscular Hemoglobin 29.3, Mean Corpuscular Hemoglobin Concent 31.5 L, Red Cell Distribution Width 15.7 H, Neutrophils (%) (Auto) 77.6 H, Lymphocytes (%) (Auto ) 10.6 L, Monocytes (%) (Auto) 6.7 H, Eosinophils (%) (Auto) 3.8 H, Basophils (% ) (Auto) 0.2, Neutrophils # (Auto) 6.3, Lymphocytes # (Auto) 0.9 L, Monocytes # (Auto) 0.5, Eosinophils # (Auto) 0.3, Basophils # (Auto) 0.0, Calcium Level 7.3 L Microbiology Microbiology 02/10/17 Blood Culture - Preliminary, Resulted No growth after 24 hours . All specim... 02/10/17 Blood Culture - Preliminary, Resulted 02/11/17 Stool Occult Blood (TRAE) - Final, Complete 02/10/17 Urine Culture, Received Pending YAZMIN BADILLO MD Feb 12, 2017 10:23
[2017-02-12] MEDS: FERROUS GLUCONATE 324 MG TAB PO SCH ×2 (13:29→20:15)
[2017-02-12] MEDS: SENOKOT S TAB PO SCH ×2 (13:29→20:15)
[2017-02-13 04:59] LABS: BASO % 0.3 % (0.0-1.0); EOS # 0.3 K/mm3 (0.0-0.50); EOS % 4.2 % (0.0-3.0); LARGE UNSTAINED CELL # 0.1 K/mm3 (0.0-0.4); LARGE UNSTAINED CELL % 1.4 % (0.0-4.0); LYMPH # 1.1 K/mm3 (1.5-4.5); LYMPH % 14.8 % (24.0-44.0); MEAN CORPUSCULAR HEMOGLOBIN 29.2 pg (27.0-33.0); MEAN CORPUSCULAR HGB CONC 32.7 g/dl (32.0-36.5); MEAN CORPUSCULAR VOLUME 89.4 fl (80.0-96.0); MONO # 0.5 K/mm3 (0.0-0.8); MONO % 7.8 % (0.0-5.0); NEUTROPHILS # 4.7 K/mm3 (1.8-7.7); NEUTROPHILS % 71.5 % (36.0-66.0); PLATELET COUNT, AUTOMATED 199 k/mm3 (150-450); RED CELL DISTRIBUTION WIDTH 15.8 % (11.5-14.5); WHITE BLOOD COUNT 6.6 K/mm3 (4.0-10.0)
[2017-02-13 05:19] LABS: ANION GAP 7 MEQ/L (8-16); BLOOD UREA NITROGEN 36 MG/DL (7-18); CALCIUM LEVEL 7.6 MG/DL (8.8-10.2); CARBON DIOXIDE LEVEL 24 MEQ/L (21-32); CHLORIDE LEVEL 117 MEQ/L (98-107); CREATININE FOR GFR 0.83 MG/DL (0.55-1.02); GLOMERULAR FILTRATION RATE > 60.0 (>32); GLUCOSE, FASTING 97 MG/DL (83-110); POTASSIUM SERUM 4.4 MEQ/L (3.5-5.1); SODIUM LEVEL 148 MEQ/L (136-145)
[2017-02-13] MEDS: SLF 3 ML SYR IV SCH ×3 (05:48→21:52)
[2017-02-13] MEDS: SODIUM CHLORIDE 0.9% INJ 10 ML SYR IV SCH ×3 (05:49→21:52)
[2017-02-13 06:00] VITALS: BP 116/59
[2017-02-13] MEDS: FERROUS GLUCONATE 324 MG TAB PO SCH ×2 (08:34→21:51)
[2017-02-13] MEDS: SENOKOT S TAB PO SCH ×2 (08:34→21:51)
--- NOTE | 2017-02-13 09:46 | IPNPDOC ---
Subjective Date Seen The patient was seen on 02/13/17. Subjective Chief Complaint/HPI The patient is a 81-year-old female admitted with a reason for visit of Anemia, Hypotension. Events since last encounter no complaints this morning, off oxygen this morning, denies any cough or sob , denied any abdominal pain ,nausea or vomiting , continues to have bilateral lower extremity chronic venous stasis dermatitis and swelling with some oozing. Objective Physical Examination General Exam: Positive: Alert, Cooperative, No Acute Distress Eye Exam: Positive: PERRLA, Conjunctiva & lids normal, EOMI, Negative: Sclera icteric Neck Exam: Positive: Supple, Negative: JVD, thyromegaly Chest Exam: Positive: Rales, Rhonchi, Wheezing Heart Exam: Positive: Rate Normal, Normal S1, Normal S2, Murmurs (systolic) Abdomen Exam: Positive: Normal bowel sounds, Soft, Negative: Tenderness, Hepatospenomegaly Extremity Exam: Positive: Edema, Normal pulses, Other (bilateral venous stasis changes. ), Negative: Clubbing, Cyanosis Assessment /Plan Problems (1) Acute blood loss anemia Status: Resolved Problem Text: from bleeding from leg wound. received 3 units of prbc Has acute on chronic anemia ,stool occult blood positive will test another. also has iron deficiency. started on iron supplements. (2) Congestive heart failure Status: Acute Problem Text: diastolic chf and corpulmonale. seems to have some acute exacerbation will give lasix iv. (3) Venous stasis dermatitis Status: Chronic Problem Text: will consult wound care from PT. (4) Acute kidney injury Status: Acute Problem Text: due to hypotension , and hypovolemia from acute blood loss now improving (5) Hypotension Status: Resolved Problem Text: due to blood loss. better this am (6) Pulmonary hypertension Status: Chronic (7) Right heart failure Status: Chronic (8) CKD (chronic kidney disease), stage III Status: Chronic Response to Treatment: Stable (9) Diabetes Status: Chronic Problem Text: on diet control (10) A-fib Status: Chronic Problem Text: rate controlled, no on any anticoagulation due to severe anemia and bleeding. will restart after discharge. (11) Pelvic mass Status: Chronic (12) Kyphoscoliosis Status: Chronic (13) Fall Status: Acute Problem Text: after slipping on blood, no injury sustained. Plan/VTE VTE Prophylaxis Ordered?: Yes Plan/Urinary Catheter Reason for insertion/continuin: Critical Pt monitoring VS, I&O, 24H, Fishbone Vital Signs/I&O Vital Signs Date Time Temp Pulse Resp B/P (MAP) Pulse Ox O2 Delivery O2 Flow Rate FiO2 02/13/17 06:10 Room Air 02/13/17 06:00 97.1 96 20 116/59 (78) 99 1.0 I&O- Last 24 Hours up to 6 AM 02/13/17 05:59 Intake Total 1150 ml Output Total 3575 ml Balance -2425 ml Laboratory Data 24H LABS Laboratory Tests 2 02/13/17 04:40: White Blood Count 6.6, Red Blood Count 3.12L, Hemoglobin 9.1L, Hematocrit 27.9L , Mean Corpuscular Volume 89.4, Mean Corpuscular Hemoglobin 29.2, Mean Corpuscular Hemoglobin Concent 32.7, Red Cell Distribution Width 15.8H, Platelet Count 199, Neutrophils (%) (Auto) 71.5H, Lymphocytes (%) (Auto) 14.8L, Monocytes (%) (Auto) 7.8H, Eosinophils (%) (Auto) 4.2H, Basophils (%) (Auto) 0.3 , Neutrophils # (Auto) 4.7, Lymphocytes # (Auto) 1.1L, Monocytes # (Auto) 0.5, Eosinophils # (Auto) 0.3, Basophils # (Auto) 0.0, Large Unclassified Cells % 1.4 , Large Unclassified Cells # 0.1, Anion Gap 7L, Glomerular Filtration Rate > 60.0, Blood Urea Nitrogen 36H, Creatinine 0.83, Sodium Level 148H, Potassium Level 4.4, Chloride Level 117H, Carbon Dioxide Level 24, Calcium Level 7.6L CBC/BMP Laboratory Tests 02/13/17 04:40 Red Blood Count 3.12 L, Mean Corpuscular Volume 89.4, Mean Corpuscular Hemoglobin 29.2, Mean Corpuscular Hemoglobin Concent 32.7, Red Cell Distribution Width 15.8 H, Neutrophils (%) (Auto) 71.5 H, Lymphocytes (%) (Auto ) 14.8 L, Monocytes (%) (Auto) 7.8 H, Eosinophils (%) (Auto) 4.2 H, Basophils (% ) (Auto) 0.3, Neutrophils # (Auto) 4.7, Lymphocytes # (Auto) 1.1 L, Monocytes # (Auto) 0.5, Eosinophils # (Auto) 0.3, Basophils # (Auto) 0.0, Calcium Level 7.6 L Microbiology Microbiology 02/10/17 Blood Culture - Preliminary, Resulted No Growth after 48 hours. All Specime... 02/10/17 Blood Culture - Preliminary, Resulted 02/11/17 Stool Occult Blood (TRAE) - Final, Complete 02/10/17 Urine Culture - Final, Complete YAZMIN BADILLO MD Feb 13, 2017 09:46
[2017-02-13] MEDS: FUROSEMIDE 40 MG/4 ML VIAL (J1940) IV SCH (09:58)
[2017-02-13 14:00] VITALS: BP 120/63
[2017-02-13 22:00] VITALS: BP 135/68
[2017-02-14] MEDS: SLF 3 ML SYR IV SCH ×3 (05:07→22:00)
[2017-02-14] MEDS: SODIUM CHLORIDE 0.9% INJ 10 ML SYR IV SCH ×3 (05:07→22:00)
[2017-02-14 05:15] LABS: BASO % 0.3 % (0.0-1.0); EOS # 0.3 K/mm3 (0.0-0.50); EOS % 5.3 % (0.0-3.0); LARGE UNSTAINED CELL # 0.1 K/mm3 (0.0-0.4); LYMPH # 1.1 K/mm3 (1.5-4.5); LYMPH % 16.1 % (24.0-44.0); MEAN CORPUSCULAR HEMOGLOBIN 28.5 pg (27.0-33.0); MEAN CORPUSCULAR HGB CONC 31.8 g/dl (32.0-36.5); MEAN CORPUSCULAR VOLUME 89.4 fl (80.0-96.0); MONO # 0.4 K/mm3 (0.0-0.8); NEUTROPHILS # 4.2 K/mm3 (1.8-7.7); NEUTROPHILS % 69.3 % (36.0-66.0); PLATELET COUNT, AUTOMATED 199 k/mm3 (150-450); RED CELL DISTRIBUTION WIDTH 15.9 % (11.5-14.5)
[2017-02-14 05:36] LABS: ANION GAP 6 MEQ/L (8-16); BLOOD UREA NITROGEN 26 MG/DL (7-18); CARBON DIOXIDE LEVEL 26 MEQ/L (21-32); CHLORIDE LEVEL 115 MEQ/L (98-107); GLOMERULAR FILTRATION RATE > 60.0 (>32); GLUCOSE, FASTING 100 MG/DL (83-110); POTASSIUM SERUM 4.4 MEQ/L (3.5-5.1); SODIUM LEVEL 147 MEQ/L (136-145)
[2017-02-14 06:00] VITALS: BP 147/73
[2017-02-14] MEDS: SENOKOT S TAB PO SCH ×2 (08:17→22:20)
[2017-02-14] MEDS: FUROSEMIDE 40 MG/4 ML VIAL (J1940) IV SCH (08:17)
[2017-02-14] MEDS: FERROUS GLUCONATE 324 MG TAB PO SCH ×2 (08:17→22:20)
--- NOTE | 2017-02-14 09:00 | IPNPDOC ---
Subjective Date Seen The patient was seen on 02/14/17. Subjective Chief Complaint/HPI The patient is a 81-year-old female admitted with a reason for visit of Anemia, Hypotension. Events since last encounter no new issues this am , needed oxygen overnight, no fever or chills, no chest pain or sob , no abdominal pain nausea or vomiting. Objective Physical Examination General Exam: Positive: Alert, Cooperative, No Acute Distress Eye Exam: Positive: PERRLA, Conjunctiva & lids normal, EOMI, Negative: Sclera icteric Neck Exam: Positive: Supple, Negative: JVD, thyromegaly Chest Exam: Positive: Rales, Rhonchi, Wheezing Heart Exam: Positive: Rate Normal, Normal S1, Normal S2, Murmurs (systolic) Abdomen Exam: Positive: Normal bowel sounds, Soft, Negative: Tenderness, Hepatospenomegaly Extremity Exam: Positive: Edema, Normal pulses, Other (bilateral venous stasis changes. With some blisters and oozing. ), Negative: Clubbing, Cyanosis Assessment /Plan Problems (1) Congestive heart failure Status: Acute Problem Text: diastolic chf and corpulmonale. seems to have some acute exacerbation will continue lasix iv. (2) Acute blood loss anemia Status: Resolved Problem Text: from bleeding from leg wound. received 3 units of prbc Has acute on chronic anemia ,stool occult blood positive x 2 if hh keeps dropping may need EGD/ colonoscopy as outpatient to find if there is any source of bleeding. also has iron deficiency. started on iron supplements. (3) Venous stasis dermatitis Status: Chronic Problem Text: will consult wound care from PT. (4) Acute kidney injury Status: Acute Problem Text: due to hypotension , and hypovolemia from acute blood loss now improving (5) Hypotension Status: Resolved Problem Text: due to blood loss. better this am (6) Pulmonary hypertension Status: Chronic (7) Right heart failure Status: Chronic (8) CKD (chronic kidney disease), stage III Status: Chronic Response to Treatment: Stable (9) Diabetes Status: Chronic Problem Text: on diet control (10) A-fib Status: Chronic Problem Text: rate controlled, no on any anticoagulation due to severe anemia and bleeding. will restart after discharge. (11) Pelvic mass Status: Chronic (12) Kyphoscoliosis Status: Chronic (13) Fall Status: Acute Problem Text: after slipping on blood, no injury sustained. Plan/VTE VTE Prophylaxis Ordered?: Yes Plan/Urinary Catheter Reason for insertion/continuin: Critical Pt monitoring VS, I&O, 24H, Fishbone Vital Signs/I&O Vital Signs Date Time Temp Pulse Resp B/P (MAP) Pulse Ox O2 Delivery O2 Flow Rate FiO2 02/14/17 06:00 97.8 70 18 147/73 (97) 99 Room Air 02/13/17 23:59 1.0 I&O- Last 24 Hours up to 6 AM 02/14/17 05:59 Intake Total 960 ml Output Total 3150 ml Balance -2190 ml Laboratory Data 24H LABS Laboratory Tests 2 02/14/17 05:03: White Blood Count 6.0, Red Blood Count 3.14L, Hemoglobin 8.9L, Hematocrit 28.1L , Mean Corpuscular Volume 89.4, Mean Corpuscular Hemoglobin 28.5, Mean Corpuscular Hemoglobin Concent 31.8L, Red Cell Distribution Width 15.9H, Platelet Count 199, Neutrophils (%) (Auto) 69.3H, Lymphocytes (%) (Auto) 16.1L, Monocytes (%) (Auto) 7.0H, Eosinophils (%) (Auto) 5.3H, Basophils (%) (Auto) 0.3 , Neutrophils # (Auto) 4.2, Lymphocytes # (Auto) 1.1L, Monocytes # (Auto) 0.4, Eosinophils # (Auto) 0.3, Basophils # (Auto) 0.0, Large Unclassified Cells % 2.0 , Large Unclassified Cells # 0.1, Anion Gap 6L, Glomerular Filtration Rate > 60.0, Blood Urea Nitrogen 26H, Creatinine 0.70, Sodium Level 147H, Potassium Level 4.4, Chloride Level 115H, Carbon Dioxide Level 26, Calcium Level 8.0L CBC/BMP Laboratory Tests 02/14/17 05:03 Red Blood Count 3.14 L, Mean Corpuscular Volume 89.4, Mean Corpuscular Hemoglobin 28.5, Mean Corpuscular Hemoglobin Concent 31.8 L, Red Cell Distribution Width 15.9 H, Neutrophils (%) (Auto) 69.3 H, Lymphocytes (%) (Auto ) 16.1 L, Monocytes (%) (Auto) 7.0 H, Eosinophils (%) (Auto) 5.3 H, Basophils (% ) (Auto) 0.3, Neutrophils # (Auto) 4.2, Lymphocytes # (Auto) 1.1 L, Monocytes # (Auto) 0.4, Eosinophils # (Auto) 0.3, Basophils # (Auto) 0.0, Calcium Level 8.0 L Microbiology Microbiology 02/10/17 Blood Culture - Preliminary, Resulted No Growth after 72 hours. All specime... 02/10/17 Blood Culture - Preliminary, Resulted 02/14/17 Stool Occult Blood (TRAE) - Final, Complete 02/11/17 Stool Occult Blood (TRAE) - Final, Complete 02/10/17 Urine Culture - Final, Complete YAZMIN BADILLO MD Feb 14, 2017 09:00
[2017-02-14 14:00] VITALS: BP 129/67
[2017-02-14 22:00] VITALS: BP 137/75
[2017-02-15] MEDS: SLF 3 ML SYR IV SCH ×3 (03:48→20:59)
[2017-02-15 06:00] VITALS: BP 135/92
[2017-02-15 06:02] LABS: BASO % 0.3 % (0.0-1.0); EOS # 0.3 K/mm3 (0.0-0.50); EOS % 4.8 % (0.0-3.0); LARGE UNSTAINED CELL # 0.1 K/mm3 (0.0-0.4); LARGE UNSTAINED CELL % 2.1 % (0.0-4.0); LYMPH # 1.1 K/mm3 (1.5-4.5); LYMPH % 17.4 % (24.0-44.0); MEAN CORPUSCULAR HEMOGLOBIN 29.1 pg (27.0-33.0); MEAN CORPUSCULAR HGB CONC 32.1 g/dl (32.0-36.5); MEAN CORPUSCULAR VOLUME 90.7 fl (80.0-96.0); MONO # 0.4 K/mm3 (0.0-0.8); MONO % 7.3 % (0.0-5.0); NEUTROPHILS # 3.7 K/mm3 (1.8-7.7); NEUTROPHILS % 68.1 % (36.0-66.0); PLATELET COUNT, AUTOMATED 202 k/mm3 (150-450); RED CELL DISTRIBUTION WIDTH 16.2 % (11.5-14.5); WHITE BLOOD COUNT 5.5 K/mm3 (4.0-10.0)
[2017-02-15 06:19] LABS: ANION GAP 8 MEQ/L (8-16); BLOOD UREA NITROGEN 21 MG/DL (7-18); CALCIUM LEVEL 8.3 MG/DL (8.8-10.2); CARBON DIOXIDE LEVEL 26 MEQ/L (21-32); CHLORIDE LEVEL 112 MEQ/L (98-107); CREATININE FOR GFR 0.67 MG/DL (0.55-1.02); GLOMERULAR FILTRATION RATE > 60.0 (>32); GLUCOSE, FASTING 100 MG/DL (83-110); POTASSIUM SERUM 4.2 MEQ/L (3.5-5.1); SODIUM LEVEL 146 MEQ/L (136-145)
[2017-02-15] MEDS: SENOKOT S TAB PO SCH ×2 (08:59→20:59)
[2017-02-15] MEDS: FERROUS GLUCONATE 324 MG TAB PO SCH ×2 (08:59→20:59)
[2017-02-15] MEDS ORDERED: FUROSEMIDE 40 MG TAB PO SCH (09:00)
--- NOTE | 2017-02-15 10:11 | IPNPDOC ---
Subjective Date Seen The patient was seen on 02/15/17. Subjective Chief Complaint/HPI The patient is a 81-year-old female admitted with a reason for visit of Anemia, Hypotension. Events since last encounter patient feels well and wants to go home , denies any sob , denies any chest pain or sob , denies any abdominal pain nausea or vomiting or diarrhea. Her legs are not as sore as before, seems to be drying up with dry skin on top which is peeling off. Objective Physical Examination General Exam: Positive: Alert, Cooperative, No Acute Distress Eye Exam: Positive: PERRLA, Conjunctiva & lids normal, EOMI, Negative: Sclera icteric Neck Exam: Positive: Supple, Negative: JVD, thyromegaly Chest Exam: Positive: Rales, Rhonchi, Wheezing Heart Exam: Positive: Rate Normal, Normal S1, Normal S2, Murmurs (systolic) Abdomen Exam: Positive: Normal bowel sounds, Soft, Negative: Tenderness, Hepatospenomegaly Extremity Exam: Positive: Edema, Normal pulses, Other (bilateral venous stasis changes. With some blisters and oozing. ), Negative: Clubbing, Cyanosis Assessment /Plan Problems (1) Congestive heart failure Status: Acute Problem Text: diastolic chf and corpulmonale. seems to have some acute exacerbation will continue lasix iv. (2) Acute blood loss anemia Status: Resolved Problem Text: from bleeding from leg wound. received 3 units of prbc Has acute on chronic anemia ,stool occult blood positive x 2 if hh keeps dropping may need EGD/ colonoscopy as outpatient to find if there is any source of bleeding. also has iron deficiency. started on iron supplements. (3) Venous stasis dermatitis Status: Chronic Problem Text: will consult wound care from PT. (4) Acute kidney injury Status: Acute Problem Text: due to hypotension , and hypovolemia from acute blood loss now improving (5) Hypotension Status: Resolved Problem Text: due to blood loss. better this am (6) Pulmonary hypertension Status: Chronic (7) Right heart failure Status: Chronic (8) CKD (chronic kidney disease), stage III Status: Chronic Response to Treatment: Stable (9) Diabetes Status: Chronic Problem Text: on diet control (10) A-fib Status: Chronic Problem Text: rate controlled, no on any anticoagulation due to severe anemia and bleeding. will restart after discharge. (11) Pelvic mass Status: Chronic (12) Kyphoscoliosis Status: Chronic (13) Fall Status: Acute Problem Text: after slipping on blood, no injury sustained. Plan/VTE VTE Prophylaxis Ordered?: Yes Plan/Urinary Catheter Reason for insertion/continuin: Critical Pt monitoring VS, I&O, 24H, Fishbone Vital Signs/I&O Vital Signs Date Time Temp Pulse Resp B/P (MAP) Pulse Ox O2 Delivery O2 Flow Rate FiO2 02/15/17 06:00 97.2 84 20 135/92 (106) 96 Room Air 02/13/17 23:59 1.0 I&O- Last 24 Hours up to 6 AM 02/15/17 06:00 Intake Total 1680 ml Output Total 1851 ml Balance -171 ml Laboratory Data 24H LABS Laboratory Tests 2 02/15/17 05:46: White Blood Count 5.5, Red Blood Count 3.28L, Hemoglobin 9.5L, Hematocrit 29.8L , Mean Corpuscular Volume 90.7, Mean Corpuscular Hemoglobin 29.1, Mean Corpuscular Hemoglobin Concent 32.1, Red Cell Distribution Width 16.2H, Platelet Count 202, Neutrophils (%) (Auto) 68.1H, Lymphocytes (%) (Auto) 17.4L, Monocytes (%) (Auto) 7.3H, Eosinophils (%) (Auto) 4.8H, Basophils (%) (Auto) 0.3 , Neutrophils # (Auto) 3.7, Lymphocytes # (Auto) 1.1L, Monocytes # (Auto) 0.4, Eosinophils # (Auto) 0.3, Basophils # (Auto) 0.0, Large Unclassified Cells % 2.1 , Large Unclassified Cells # 0.1, Anion Gap 8, Glomerular Filtration Rate > 60.0 , Blood Urea Nitrogen 21H, Creatinine 0.67, Sodium Level 146H, Potassium Level 4.2, Chloride Level 112H, Carbon Dioxide Level 26, Calcium Level 8.3L CBC/BMP Laboratory Tests 02/15/17 05:46 Red Blood Count 3.28 L, Mean Corpuscular Volume 90.7, Mean Corpuscular Hemoglobin 29.1, Mean Corpuscular Hemoglobin Concent 32.1, Red Cell Distribution Width 16.2 H, Neutrophils (%) (Auto) 68.1 H, Lymphocytes (%) (Auto ) 17.4 L, Monocytes (%) (Auto) 7.3 H, Eosinophils (%) (Auto) 4.8 H, Basophils (% ) (Auto) 0.3, Neutrophils # (Auto) 3.7, Lymphocytes # (Auto) 1.1 L, Monocytes # (Auto) 0.4, Eosinophils # (Auto) 0.3, Basophils # (Auto) 0.0, Calcium Level 8.3 L Microbiology Microbiology 02/10/17 Blood Culture - Preliminary, Resulted No Growth after 72 hours. All specime... 02/10/17 Blood Culture - Final, Complete Corynebacterium Sp. Not Jk 02/14/17 Stool Occult Blood (TRAE) - Final, Complete 02/11/17 Stool Occult Blood (TRAE) - Final, Complete 02/10/17 Urine Culture - Final, Complete YAZMIN BADILLO MD Feb 15, 2017 10:11
[2017-02-15 14:00] VITALS: BP 122/60
[2017-02-15] MEDS: FUROSEMIDE 40 MG/4 ML VIAL (J1940) IV SCH (17:27)
[2017-02-15 22:00] VITALS: BP 124/76
[2017-02-16] MEDS: SLF 3 ML SYR IV SCH ×3 (05:49→20:32)
[2017-02-16 06:00] VITALS: BP 132/73
[2017-02-16 06:30] LABS: BASO % 0.8 % (0.0-1.0); EOS # 0.4 K/mm3 (0.0-0.50); EOS % 6.9 % (0.0-3.0); LARGE UNSTAINED CELL # 0.1 K/mm3 (0.0-0.4); LYMPH # 1.3 K/mm3 (1.5-4.5); MEAN CORPUSCULAR HEMOGLOBIN 28.8 pg (27.0-33.0); MEAN CORPUSCULAR HGB CONC 31.7 g/dl (32.0-36.5); MEAN CORPUSCULAR VOLUME 90.9 fl (80.0-96.0); MONO # 0.4 K/mm3 (0.0-0.8); MONO % 7.7 % (0.0-5.0); NEUTROPHILS % 59.6 % (36.0-66.0); PLATELET COUNT, AUTOMATED 206 k/mm3 (150-450); RED CELL DISTRIBUTION WIDTH 16.5 % (11.5-14.5); WHITE BLOOD COUNT 5.1 K/mm3 (4.0-10.0)
[2017-02-16 06:46] LABS: ANION GAP 7 MEQ/L (8-16); BLOOD UREA NITROGEN 20 MG/DL (7-18); CALCIUM LEVEL 8.2 MG/DL (8.8-10.2); CARBON DIOXIDE LEVEL 30 MEQ/L (21-32); CHLORIDE LEVEL 109 MEQ/L (98-107); CREATININE FOR GFR 0.72 MG/DL (0.55-1.02); GLOMERULAR FILTRATION RATE > 60.0 (>32); GLUCOSE, FASTING 90 MG/DL (83-110); POTASSIUM SERUM 3.9 MEQ/L (3.5-5.1); SODIUM LEVEL 146 MEQ/L (136-145)
[2017-02-16] MEDS: FUROSEMIDE 40 MG/4 ML VIAL (J1940) IV SCH ×2 (10:11→17:06)
[2017-02-16] MEDS: SENOKOT S TAB PO SCH ×2 (10:12→20:31)
[2017-02-16] MEDS: FERROUS GLUCONATE 324 MG TAB PO SCH ×2 (10:12→20:31)
--- NOTE | 2017-02-16 10:26 | IPNPDOC ---
Subjective Date Seen The patient was seen on 02/16/17. Subjective Chief Complaint/HPI The patient is a 81-year-old female admitted with a reason for visit of Anemia, Hypotension. Events since last encounter No complaints this morning , walking with walker in the room , wants to walk in the corridor. Objective Physical Examination General Exam: Positive: Alert, Cooperative, No Acute Distress Eye Exam: Positive: PERRLA, Conjunctiva & lids normal, EOMI, Negative: Sclera icteric Neck Exam: Positive: Supple, Negative: JVD, thyromegaly Chest Exam: Positive: Rales, Rhonchi, Wheezing Heart Exam: Positive: Rate Normal, Normal S1, Normal S2, Murmurs (systolic) Abdomen Exam: Positive: Normal bowel sounds, Soft, Negative: Tenderness, Hepatospenomegaly Extremity Exam: Positive: Edema, Normal pulses, Other (bilateral venous stasis changes. With some blisters and oozing. ), Negative: Clubbing, Cyanosis Assessment /Plan Problems (1) Congestive heart failure Status: Acute Response to Treatment: Improving Problem Text: diastolic chf and corpulmonale. seems to have some acute exacerbation will continue lasix iv. (2) Acute blood loss anemia Status: Resolved Problem Text: from bleeding from leg wound. received 3 units of prbc Has acute on chronic anemia ,stool occult blood positive x 2 if hh keeps dropping may need EGD/ colonoscopy as outpatient to find if there is any source of bleeding. also has iron deficiency. started on iron supplements. (3) Venous stasis dermatitis Status: Chronic Problem Text: will consult wound care from PT. (4) Acute kidney injury Status: Acute Response to Treatment: Improving Problem Text: due to hypotension , and hypovolemia from acute blood loss now improving (5) Hypotension Status: Resolved Problem Text: due to blood loss. better this am (6) Pulmonary hypertension Status: Chronic (7) Right heart failure Status: Chronic (8) CKD (chronic kidney disease), stage III Status: Chronic Response to Treatment: Stable (9) Diabetes Status: Chronic Problem Text: on diet control (10) A-fib Status: Chronic Problem Text: rate controlled, no on any anticoagulation due to severe anemia and bleeding. will restart after discharge. (11) Pelvic mass Status: Chronic (12) Kyphoscoliosis Status: Chronic (13) Fall Status: Acute Problem Text: after slipping on blood, no injury sustained. Plan/VTE VTE Prophylaxis Ordered?: Yes Plan/Urinary Catheter Reason for insertion/continuin: Critical Pt monitoring VS, I&O, 24H, Fishbone Vital Signs/I&O Vital Signs Date Time Temp Pulse Resp B/P (MAP) Pulse Ox O2 Delivery O2 Flow Rate FiO2 02/16/17 06:00 97.8 79 20 132/73 (92) 96 Room Air 02/13/17 23:59 1.0 I&O- Last 24 Hours up to 6 AM 02/16/17 05:59 Intake Total 1470 ml Output Total 1351 ml Balance 119 ml Laboratory Data 24H LABS Laboratory Tests 2 02/16/17 05:18: White Blood Count 5.1, Red Blood Count 3.16L, Hemoglobin 9.1L, Hematocrit 28.7L , Mean Corpuscular Volume 90.9, Mean Corpuscular Hemoglobin 28.8, Mean Corpuscular Hemoglobin Concent 31.7L, Red Cell Distribution Width 16.5H, Platelet Count 206, Neutrophils (%) (Auto) 59.6, Lymphocytes (%) (Auto) 23.0L, Monocytes (%) (Auto) 7.7H, Eosinophils (%) (Auto) 6.9H, Basophils (%) (Auto) 0.8 , Neutrophils # (Auto) 3.0, Lymphocytes # (Auto) 1.3L, Monocytes # (Auto) 0.4, Eosinophils # (Auto) 0.4, Basophils # (Auto) 0.0, Large Unclassified Cells % 2.0 , Large Unclassified Cells # 0.1, Anion Gap 7L, Glomerular Filtration Rate > 60.0, Blood Urea Nitrogen 20H, Creatinine 0.72, Sodium Level 146H, Potassium Level 3.9, Chloride Level 109H, Carbon Dioxide Level 30, Calcium Level 8.2L CBC/BMP Laboratory Tests 02/16/17 05:18 Red Blood Count 3.16 L, Mean Corpuscular Volume 90.9, Mean Corpuscular Hemoglobin 28.8, Mean Corpuscular Hemoglobin Concent 31.7 L, Red Cell Distribution Width 16.5 H, Neutrophils (%) (Auto) 59.6, Lymphocytes (%) (Auto) 23.0 L, Monocytes (%) (Auto) 7.7 H, Eosinophils (%) (Auto) 6.9 H, Basophils (%) (Auto) 0.8, Neutrophils # (Auto) 3.0, Lymphocytes # (Auto) 1.3 L, Monocytes # ( Auto) 0.4, Eosinophils # (Auto) 0.4, Basophils # (Auto) 0.0, Calcium Level 8.2 L Microbiology Microbiology 02/10/17 Blood Culture - Final, Complete NO GROWTH AFTER 5 DAYS 02/10/17 Blood Culture - Final, Complete Corynebacterium Sp. Not Jk 02/14/17 Stool Occult Blood (TRAE) - Final, Complete 02/11/17 Stool Occult Blood (TRAE) - Final, Complete 02/10/17 Urine Culture - Final, Complete YAZMIN BADILLO MD Feb 16, 2017 10:26
[2017-02-16 14:00] VITALS: BP 128/60
[2017-02-16 22:00] VITALS: BP 126/69
[2017-02-17 05:53] LABS: BASO % 0.8 % (0.0-1.0); EOS # 0.3 K/mm3 (0.0-0.50); EOS % 6.5 % (0.0-3.0); LARGE UNSTAINED CELL # 0.1 K/mm3 (0.0-0.4); LARGE UNSTAINED CELL % 2.5 % (0.0-4.0); LYMPH # 1.2 K/mm3 (1.5-4.5); LYMPH % 23.5 % (24.0-44.0); MEAN CORPUSCULAR HEMOGLOBIN 29.1 pg (27.0-33.0); MEAN CORPUSCULAR HGB CONC 31.7 g/dl (32.0-36.5); MEAN CORPUSCULAR VOLUME 91.6 fl (80.0-96.0); MONO # 0.4 K/mm3 (0.0-0.8); MONO % 8.1 % (0.0-5.0); NEUTROPHILS # 2.6 K/mm3 (1.8-7.7); NEUTROPHILS % 58.6 % (36.0-66.0); PLATELET COUNT, AUTOMATED 215 k/mm3 (150-450); RED CELL DISTRIBUTION WIDTH 16.7 % (11.5-14.5); WHITE BLOOD COUNT 4.5 K/mm3 (4.0-10.0)
[2017-02-17 06:00] VITALS: BP 138/73
[2017-02-17 06:16] LABS: ANION GAP 7 MEQ/L (8-16); BLOOD UREA NITROGEN 22 MG/DL (7-18); CALCIUM LEVEL 8.1 MG/DL (8.8-10.2); CARBON DIOXIDE LEVEL 31 MEQ/L (21-32); CHLORIDE LEVEL 107 MEQ/L (98-107); CREATININE FOR GFR 0.82 MG/DL (0.55-1.02); GLOMERULAR FILTRATION RATE > 60.0 (>32); GLUCOSE, FASTING 97 MG/DL (83-110); POTASSIUM SERUM 3.8 MEQ/L (3.5-5.1); SODIUM LEVEL 145 MEQ/L (136-145)
[2017-02-17] MEDS: SLF 3 ML SYR IV SCH ×2 (06:22→13:00)
[2017-02-17] MEDS: FUROSEMIDE 40 MG/4 ML VIAL (J1940) IV SCH (08:37)
[2017-02-17] MEDS: SENOKOT S TAB PO SCH (08:37)
[2017-02-17] MEDS: FERROUS GLUCONATE 324 MG TAB PO SCH (08:37)
[2017-02-17] MEDS ORDERED: FERR32TA PO (10:07)
[2017-02-17] MEDS ORDERED: LASI40TA PO (10:07)
[2017-02-17] MEDS ORDERED: SENN1TAB2 PO (10:07)
--- NOTE | 2017-02-17 16:40 | DSES ---
DATE OF ADMISSION: 02/10/2017 DATE OF DISCHARGE: 02/17/2017 PRIMARY CARE PROVIDER: Pari Irvin NP DISCHARGE DIAGNOSES: 1. Acute on chronic diastolic congestive heart failure. 2. Acute blood loss anemia. 3. Iron deficiency anemia. 4. Acute kidney injury. 5. Chronic venous stasis dermatitis. 6. Pulmonary hypertension. 7. Right-sided heart failure. 8. Chronic kidney disease (CKD), stage III. 9. Diabetes. 10. Atrial fibrillation not on any anticoagulation. 11. Chronic pelvic mass. 12. Kyphoscoliosis. 13. Fall in the house. 14. Hypotension, resolved. DISCHARGE MEDICATIONS: - ferrous gluconate 324 mg by mouth twice a day - Senna Plus one tablet by mouth twice a day - Lasix 40 mg by mouth twice a day - metformin 500 mg by mouth daily - metoprolol tartrate 25 mg by mouth twice a day HOSPITAL COURSE: This is an 81-year-old female who came to the hospital because her foot was bleeding. She woke up from sleep and found a pool of blood in the lower part of the bed and also on the floor. She tried to get out of bed and slipped on the blood and fell in her house. When she called 911, she stated that her bleeding was from her legs. However, on initial examination, no open wounds were seen on the legs. There was chronic venous stasis dermatitis with some blistering and weeping. The patient was found to be severely anemic with a hemoglobin of 6.2. She required three units of blood transfusion in the hospital. The patient's stool occult blood was also found to be positive times two, so the patient's anticoagulation with Xarelto was held. The patient was also found to have fluid overload and acute on chronic diastolic congestive heart failure exacerbation, so the patient was put on IV Lasix with good negative balance and loss in weight. The patient's leg swelling improved. In the hospital, the patient was mobilizing by herself with a walker. At present, the patient does not have any complaints. Her vital signs are stable and she is functionally at her baseline. The patient is going to be discharged home in a stable condition. PHYSICAL EXAMINATION: VITAL SIGNS: Temperature 99, pulse 90, respiratory rate 18, blood pressure 138/73, pulse oximetry 93% in room air. GENERAL: The patient awake, alert, and oriented times three, laying down in bed in no acute distress. HEENT: Normocephalic, atraumatic. Moist mucous membranes. Anicteric eyes. CHEST: Clear to auscultation. There are some basilar crackles. CARDIOVASCULAR: S1, S2, regular. ABDOMEN: Soft, nontender. Bowel sounds present. EXTREMITIES: Bilateral venous stasis with chronic stasis dermatitis. LABORATORY DATA: WBC 4.5, hemoglobin 9, platelets 215. Sodium 145, potassium 3.8, chloride 107, bicarbonate 31, BUN 22, creatinine 0.8, glucose 97, calcium 8.1. Urine culture no growth. Blood culture, one out of two bottles Corynebacterium species which is a skin colonizer. Stool occult times two positive. Abdomen and pelvis CT scan showed pleural effusions, passive atelectasis of the lower lobes, anasarca, and large fibroid uterus, ileus. CT chest showed minimal amount of left pleural fluid, large hiatal hernia, discoid atelectasis of the left upper lobe. CT cervical spine showed cervical spondylosis from C2-3 to C7-T1. CT head showed small vessel ischemic disease, mild volume loss. Hip x-ray showed no fracture noted. DISPOSITION: The patient is discharged home in a stable condition. DISCHARGE INSTRUCTIONS: The patient is to followup with primary care provider in one week. Diet as tolerated. Fluid restriction 1.5 liter. Activity as tolerated. The patient has been setup with home services.
== END 2017-02-17 15:05 | disposition home health service (06) | DRG 811 ==
LOC: M ED 09:03 → M ED INP 13:29 → M ICU 16:22 → M MSPAV 02-12 10:05
PROVIDERS: ADMIT Internal Medicine; ATTEND Internal Medicine Nephrology
PROC: 02HV33Z Insertion of Infusion Device into Superior Vena Cava, Percutaneous Approach (ICD-10-PCS; principal; 2017-02-10)
PROC: 30233N1 Transfusion of Nonautologous Red Blood Cells into Peripheral Vein, Percutaneous Approach (ICD-10-PCS; 2017-02-10)
DX: D62 Acute posthemorrhagic anemia (principal); I50.33 Acute on chronic diastolic (congestive) heart failure; N17.9 Acute kidney failure, unspecified; I13.0 Hypertensive heart and chronic kidney disease with heart failure and stage 1 through stage 4 chronic kidney disease, or unspecified chronic kidney disease; I83.209 Varicose veins of unspecified lower extremity with both ulcer of unspecified site and inflammation; L97.919 Non-pressure chronic ulcer of unspecified part of right lower leg with unspecified severity; L97.929 Non-pressure chronic ulcer of unspecified part of left lower leg with unspecified severity; Z66 Do not resuscitate; I95.9 Hypotension, unspecified; N18.3 Chronic kidney disease, stage 3 (moderate); E11.22 Type 2 diabetes mellitus with diabetic chronic kidney disease; I27.2 Other secondary pulmonary hypertension; M41.9 Scoliosis, unspecified; Z79.84 Long term (current) use of oral hypoglycemic drugs; Z79.899 Other long term (current) drug therapy; Z79.01 Long term (current) use of anticoagulants

== ENCOUNTER → 2017-03-03 | Outpatient (REF) | payer MEDICARE, MEDICAID ==
[~2017-03-03] MED LIST changes: +FERR32TA PO; +METF500T13 PO; +SENN1TAB2 PO
[2017-03-03 16:41] LABS: MEAN CORPUSCULAR HGB CONC 29.9 g/dl (32.0-36.5); MEAN CORPUSCULAR VOLUME 93.6 fl (80.0-96.0); RED CELL DISTRIBUTION WIDTH 16.1 % (11.5-14.5); WHITE BLOOD COUNT 4.3 K/mm3 (4.0-10.0)
[2017-03-03 16:45] LABS: ALBUMIN/GLOBULIN RATIO 0.79 (1.00-1.93); BILIRUBIN,TOTAL 0.3 MG/DL (0.2-1.0); CALCIUM LEVEL 8.7 MG/DL (8.8-10.2); CREATININE FOR GFR 1.18 MG/DL (0.55-1.02); GLOMERULAR FILTRATION RATE 46.7 (>32); TOTAL PROTEIN 6.8 GM/DL (6.4-8.2)
== END ==
LOC: M SFHCPLAZ 15:46
PROVIDERS: ATTEND Internal Medicine
DX: D50.0 Iron deficiency anemia secondary to blood loss (chronic) (principal); E11.9 Type 2 diabetes mellitus without complications
CPT/HCPCS: 36415; 80053; 83036; 85027; 99495; G0463

== ENCOUNTER → 2017-03-03 | Outpatient (REF) | payer MEDICARE, MEDICAID | LOC: M SFHCPLAZ 18:52 | PROVIDERS: ATTEND Internal Medicine | DX: D50.0 Iron deficiency anemia secondary to blood loss (chronic) (principal); E11.9 Type 2 diabetes mellitus without complications ==

== ENCOUNTER → 2017-04-14 | Outpatient (REF) | payer MEDICARE, MEDICAID ==
[2017-04-14 20:40] LABS: ALBUMIN 3.4 GM/DL (3.2-5.2); ALBUMIN/GLOBULIN RATIO 0.83 (1.00-1.93); BILIRUBIN,TOTAL 0.4 MG/DL (0.2-1.0); CALCIUM LEVEL 8.8 MG/DL (8.8-10.2); CREATININE FOR GFR 0.98 MG/DL (0.55-1.02); GLOMERULAR FILTRATION RATE 57.7 (>32); MAGNESIUM LEVEL 2.4 MG/DL (1.8-2.4); POTASSIUM SERUM 4.6 MEQ/L (3.5-5.1); TOTAL PROTEIN 7.5 GM/DL (6.4-8.2)
[2017-04-14 20:43] LABS: MEAN CORPUSCULAR HEMOGLOBIN 25.1 pg (27.0-33.0); MEAN CORPUSCULAR VOLUME 86.5 fl (80.0-96.0); PLATELET COUNT, AUTOMATED 231 10^3/uL (150-450); RED CELL DISTRIBUTION WIDTH 16.5 % (11.5-14.5); WHITE BLOOD COUNT 5.4 10^3/uL (4.0-10.0)
== END ==
LOC: M SFHCPLAZ 15:51
PROVIDERS: ATTEND Internal Medicine
DX: Z00.00 Encounter for general adult medical examination without abnormal findings (principal); E11.9 Type 2 diabetes mellitus without complications; D50.0 Iron deficiency anemia secondary to blood loss (chronic)

== ENCOUNTER 2017-07-16 10:42 | Inpatient (IN) | payer MEDICARE, MEDICAID ==
[2017-07-16 11:48] LABS: BEDSIDE GLUCOSE 166 MG/DL (83-110)
[2017-07-16 13:11] LABS: BASO % 0.5 % (0.0-1.0); EOS # 0.1 10^3/uL (0.0-0.50); EOS % 1.8 % (0.0-3.0); HEMOGLOBIN 7.7 g/dl (12.0-16.0); IMMATURE GRANULOCYTE % 0.2 % (0-0); LYMPH # 0.6 10^3/uL (1.5-4.5); MEAN CORPUSCULAR HEMOGLOBIN 22.4 pg (27.0-33.0); MEAN CORPUSCULAR HGB CONC 29.6 g/dl (32.0-36.5); MEAN CORPUSCULAR VOLUME 75.6 fl (80.0-96.0); MONO # 0.5 10^3/uL (0.0-0.8); MONO % 11.9 % (0.0-5.0); NEUTROPHILS # 3.2 10^3/uL (1.8-7.7); NEUTROPHILS % 72.6 % (36.0-66.0); PLATELET COUNT, AUTOMATED 209 10^3/uL (150-450); RED BLOOD COUNT 3.44 10^6/uL (4.00-5.40); RED CELL DISTRIBUTION WIDTH 18.9 % (11.5-14.5); WHITE BLOOD COUNT 4.4 10^3/uL (4.0-10.0)
[2017-07-16 13:14] LABS: INR 1.21; PROTHROMBIN TIME 15.5 SECONDS (12.4-14.5)
[2017-07-16 13:15] LABS: PARTIAL THROMBOPLASTIN TIME 39.1 SECONDS (26.8-37.9)
[2017-07-16 13:20] LABS: ANION GAP 7 MEQ/L (8-16); BLOOD UREA NITROGEN 40 MG/DL (7-18); C REACTIVE PROTEIN QUANTITATIV 2.46 MG/DL (0.00-0.30); CALCIUM LEVEL 8.7 MG/DL (8.8-10.2); CARBON DIOXIDE LEVEL 31 MEQ/L (21-32); CHLORIDE LEVEL 105 MEQ/L (98-107); CREATININE FOR GFR 1.04 MG/DL (0.55-1.02); GLOMERULAR FILTRATION RATE 53.9 (>32); GLUCOSE, FASTING 170 MG/DL (70-100); POTASSIUM SERUM 4.1 MEQ/L (3.5-5.1); SODIUM LEVEL 143 MEQ/L (136-145)
[2017-07-16 13:36] LABS: ERYTHROCYTE SEDIMENTATION RATE 54 mm/hr (0-30)
[2017-07-16] MEDS: HEPARIN SOD (PORCINE) 5000 UNITS/ML VIAL SC ×2 (14:00→22:00)
[2017-07-16] MEDS ORDERED: ONDANSETRON 4MG/2ML VIAL (J2405) IV (15:00)
[2017-07-16] MEDS ORDERED: ISOVUE-370 76% 100ML VIAL (Q9967) As Ordered (15:04)
[2017-07-16] MEDS: CEFAZOLIN SOD 1 GM in APPROPRIATE DILUENT 1 EA IV (15:08)
[2017-07-16] MEDS ORDERED: GLUCOSE 4 GM CHEW TABLET PO (15:15)
[2017-07-16] MEDS ORDERED: DEXTROSE 50% 50 ML SYRINGE IV (15:15)
[2017-07-16] MEDS ORDERED: GLUCAGON FOR INJ 1 MG VIAL (J1610) SC (15:15)
[2017-07-16 15:23] LABS: RETIC HEMOGLOBIN EQUIVALENT 20.3 pg (24-36); RETICULOCYTE # 49.4 10^9/L (17-77); RETICULOCYTE % 1.5 % (0.5-1.5)
[2017-07-16 15:29] LABS: REASON FOR REVIEW COMPREHENSIVE REVIEW; SLIDE REVIEW Report; SOURCE PERIPHERAL SMEAR
[2017-07-16 15:48] LABS: LACTIC ACID SEPSIS PROTOCOL 1.3 MMOL/L (0.4-2.0)
[2017-07-16 15:51] LABS: ALBUMIN 2.8 GM/DL (3.2-5.2); ALBUMIN/GLOBULIN RATIO 0.67 (1.00-1.93); ALKALINE PHOSPHATASE 188 U/L (45-117); ALT/SGPT 23 U/L (12-78); AST/SGOT 18 U/L (7-37); BILIRUBIN,DIRECT 0.2 MG/DL (0.0-0.2); BILIRUBIN,TOTAL 0.4 MG/DL (0.2-1.0); FERRITIN 10 NG/ML (8-252); IRON (FE) 20 UG/DL (50-170); PERCENT SATURATION 4.9 % (13.2-45.0); TOTAL IRON BINDING CAPACITY 407 UG/DL (250-450)
[2017-07-16 15:56] LABS: ESTIMATED AVERAGE GLUCOSE 140 MG/DL (60-110); HEMOGLOBIN A1c 6.5 %
[2017-07-16 16:56] LABS: FOLATE 10.2 NG/ML (>5.4); VITAMIN B12 LEVEL 439 PG/ML (247-911)
[2017-07-16] MEDS: HumaLOG INSULIN (NovoLOG) PER UNIT SC ×2 (17:30→21:00)
[2017-07-16 18:20] LABS: BEDSIDE GLUCOSE 110 MG/DL (83-110)
[2017-07-16] MEDS: PANTOPRAZOLE 40MG TAB (PROTONIX) PO (18:34)
[2017-07-16] MEDS: DOXYCYCLINE HYCLATE 100 MG in D5W MINI-BAG PLUS 100 ML IV (18:34)
[2017-07-16 20:17] LABS: HEMATOCRIT 25.7 % (36.0-47.0); HEMOGLOBIN 7.6 g/dl (12.0-16.0)
[2017-07-16] MEDS: FUROSEMIDE 40 MG TAB PO (20:40)
[2017-07-16] MEDS: SENOKOT S TAB PO (20:40)
[2017-07-16 20:41] LABS: BEDSIDE GLUCOSE 180 MG/DL (83-110)
[2017-07-16] MEDS: METOPROLOL TART 25 MG TABLET PO (20:41)
[2017-07-17 00:15] LABS: IMMEDIATE SPIN CROSSMATCH 1 1
[2017-07-17] MEDS: DOXYCYCLINE HYCLATE 100 MG in D5W MINI-BAG PLUS 100 ML IV ×2 (04:59→18:19)
[2017-07-17] MEDS: HEPARIN SOD (PORCINE) 5000 UNITS/ML VIAL SC ×3 (05:00→21:47)
[2017-07-17 06:22] LABS: HEMATOCRIT 27.1 % (36.0-47.0); HEMOGLOBIN 8.2 g/dl (12.0-16.0); MEAN CORPUSCULAR HEMOGLOBIN 22.8 pg (27.0-33.0); MEAN CORPUSCULAR HGB CONC 30.3 g/dl (32.0-36.5); MEAN CORPUSCULAR VOLUME 75.3 fl (80.0-96.0); PLATELET COUNT, AUTOMATED 184 10^3/uL (150-450); RED CELL DISTRIBUTION WIDTH 18.5 % (11.5-14.5); WHITE BLOOD COUNT 4.4 10^3/uL (4.0-10.0)
[2017-07-17 06:46] LABS: ANION GAP 6 MEQ/L (8-16); BLOOD UREA NITROGEN 37 MG/DL (7-18); C REACTIVE PROTEIN QUANTITATIV 4.25 MG/DL (0.00-0.30); CALCIUM LEVEL 8.4 MG/DL (8.8-10.2); CARBON DIOXIDE LEVEL 28 MEQ/L (21-32); CHLORIDE LEVEL 107 MEQ/L (98-107); CREATININE FOR GFR 1.02 MG/DL (0.55-1.02); GLOMERULAR FILTRATION RATE 55.1 (>32); GLUCOSE, FASTING 98 MG/DL (70-100); MAGNESIUM LEVEL 2.5 MG/DL (1.8-2.4); POTASSIUM SERUM 4.3 MEQ/L (3.5-5.1); SODIUM LEVEL 141 MEQ/L (136-145)
[2017-07-17] MEDS: HumaLOG INSULIN (NovoLOG) PER UNIT SC ×4 (07:30→21:00)
[2017-07-17] MEDS: PANTOPRAZOLE 40MG TAB (PROTONIX) PO (10:00)
[2017-07-17] MEDS: METOPROLOL TART 25 MG TABLET PO ×2 (10:00→21:48)
[2017-07-17] MEDS: FUROSEMIDE 40 MG TAB PO ×2 (10:00→21:48)
[2017-07-17] MEDS: SENOKOT S TAB PO ×2 (10:00→21:48)
[2017-07-17 12:15] LABS: BEDSIDE GLUCOSE 146 MG/DL (83-110)
[2017-07-17 17:55] LABS: BEDSIDE GLUCOSE 60 MG/DL (83-110)
[2017-07-18] MEDS: DOXYCYCLINE HYCLATE 100 MG in D5W MINI-BAG PLUS 100 ML IV ×2 (04:00→16:00)
[2017-07-18 06:41] LABS: HEMOGLOBIN 8.2 g/dl (12.0-16.0); MEAN CORPUSCULAR HEMOGLOBIN 22.4 pg (27.0-33.0); MEAN CORPUSCULAR HGB CONC 29.3 g/dl (32.0-36.5); MEAN CORPUSCULAR VOLUME 76.5 fl (80.0-96.0); PLATELET COUNT, AUTOMATED 186 10^3/uL (150-450); RED BLOOD COUNT 3.66 10^6/uL (4.00-5.40); RED CELL DISTRIBUTION WIDTH 18.6 % (11.5-14.5); WHITE BLOOD COUNT 5.4 10^3/uL (4.0-10.0)
[2017-07-18] MEDS: HEPARIN SOD (PORCINE) 5000 UNITS/ML VIAL SC ×3 (06:46→22:41)
[2017-07-18 06:50] LABS: ANION GAP 7 MEQ/L (8-16); BLOOD UREA NITROGEN 38 MG/DL (7-18); C REACTIVE PROTEIN QUANTITATIV 4.32 MG/DL (0.00-0.30); CALCIUM LEVEL 8.6 MG/DL (8.8-10.2); CARBON DIOXIDE LEVEL 28 MEQ/L (21-32); CHLORIDE LEVEL 107 MEQ/L (98-107); GLOMERULAR FILTRATION RATE 45.7 (>32); GLUCOSE, FASTING 105 MG/DL (70-100); MAGNESIUM LEVEL 2.1 MG/DL (1.8-2.4); POTASSIUM SERUM 4.1 MEQ/L (3.5-5.1); SODIUM LEVEL 142 MEQ/L (136-145)
[2017-07-18] MEDS: HumaLOG INSULIN (NovoLOG) PER UNIT SC ×4 (07:17→21:00)
[2017-07-18 08:24] LABS: BEDSIDE GLUCOSE 178 MG/DL (83-110)
[2017-07-18 08:24] LABS: BEDSIDE GLUCOSE 127 MG/DL (83-110)
[2017-07-18] MEDS: PANTOPRAZOLE 40MG TAB (PROTONIX) PO (09:00)
[2017-07-18] MEDS: FUROSEMIDE 40 MG TAB PO ×2 (09:01→22:37)
[2017-07-18] MEDS: SENOKOT S TAB PO ×2 (09:01→22:38)
[2017-07-18] MEDS: METOPROLOL TART 25 MG TABLET PO ×2 (09:01→22:37)
[2017-07-18 11:35] LABS: BEDSIDE GLUCOSE 188 MG/DL (83-110)
[2017-07-18 16:58] LABS: BEDSIDE GLUCOSE 83 MG/DL (83-110)
[2017-07-18] MEDS: FERROUS SULFATE 325MG TAB PO (22:37)
[2017-07-19 01:11] LABS: BEDSIDE GLUCOSE 168 MG/DL (83-110)
[2017-07-19] MEDS: DOXYCYCLINE HYCLATE 100 MG in D5W MINI-BAG PLUS 100 ML IV ×2 (04:15→15:18)
[2017-07-19] MEDS: HEPARIN SOD (PORCINE) 5000 UNITS/ML VIAL SC ×3 (05:52→22:00)
[2017-07-19 05:58] LABS: HEMOGLOBIN 8.9 g/dl (12.0-16.0); MEAN CORPUSCULAR HEMOGLOBIN 22.6 pg (27.0-33.0); MEAN CORPUSCULAR HGB CONC 29.7 g/dl (32.0-36.5); MEAN CORPUSCULAR VOLUME 76.1 fl (80.0-96.0); PLATELET COUNT, AUTOMATED 194 10^3/uL (150-450); RED BLOOD COUNT 3.94 10^6/uL (4.00-5.40); RED CELL DISTRIBUTION WIDTH 18.9 % (11.5-14.5); WHITE BLOOD COUNT 6.2 10^3/uL (4.0-10.0)
[2017-07-19 06:21] LABS: ANION GAP 6 MEQ/L (8-16); BLOOD UREA NITROGEN 34 MG/DL (7-18); C REACTIVE PROTEIN QUANTITATIV 2.72 MG/DL (0.00-0.30); CALCIUM LEVEL 8.6 MG/DL (8.8-10.2); CARBON DIOXIDE LEVEL 30 MEQ/L (21-32); CHLORIDE LEVEL 107 MEQ/L (98-107); CREATININE FOR GFR 0.93 MG/DL (0.55-1.02); GLOMERULAR FILTRATION RATE > 60.0 (>32); GLUCOSE, FASTING 123 MG/DL (70-100); MAGNESIUM LEVEL 2.1 MG/DL (1.8-2.4); NT-PRO BNP 9968 PG/ML (<450); POTASSIUM SERUM 3.5 MEQ/L (3.5-5.1); SODIUM LEVEL 143 MEQ/L (136-145)
[2017-07-19] MEDS: HumaLOG INSULIN (NovoLOG) PER UNIT SC (07:30)
[2017-07-19] MEDS: FUROSEMIDE 40 MG TAB PO (08:47)
[2017-07-19] MEDS: PANTOPRAZOLE 40MG TAB (PROTONIX) PO (08:47)
[2017-07-19] MEDS: SENOKOT S TAB PO ×2 (08:48→21:59)
[2017-07-19] MEDS: METOPROLOL TART 25 MG TABLET PO ×2 (08:48→21:59)
[2017-07-19] MEDS: FERROUS SULFATE 325MG TAB PO ×2 (08:48→21:59)
[2017-07-19] MEDS: FUROSEMIDE 40 MG/4 ML VIAL (J1940) IV ×2 (12:19→17:53)
[2017-07-19] MEDS ORDERED: FUROSEMIDE 40 MG TAB PO (16:00)
[2017-07-20] MEDS: FUROSEMIDE 40 MG/4 ML VIAL (J1940) IV ×4 (00:50→17:55)
[2017-07-20] MEDS: DOXYCYCLINE HYCLATE 100 MG in D5W MINI-BAG PLUS 100 ML IV ×2 (05:01→16:25)
[2017-07-20] MEDS: HEPARIN SOD (PORCINE) 5000 UNITS/ML VIAL SC ×3 (05:01→20:59)
[2017-07-20 05:37] LABS: HEMATOCRIT 32.5 % (36.0-47.0); HEMOGLOBIN 9.5 g/dl (12.0-16.0); MEAN CORPUSCULAR HEMOGLOBIN 22.2 pg (27.0-33.0); MEAN CORPUSCULAR HGB CONC 29.2 g/dl (32.0-36.5); MEAN CORPUSCULAR VOLUME 76.1 fl (80.0-96.0); PLATELET COUNT, AUTOMATED 203 10^3/uL (150-450); RED BLOOD COUNT 4.27 10^6/uL (4.00-5.40); RED CELL DISTRIBUTION WIDTH 19.1 % (11.5-14.5); WHITE BLOOD COUNT 6.2 10^3/uL (4.0-10.0)
[2017-07-20 06:06] LABS: ANION GAP 6 MEQ/L (8-16); BLOOD UREA NITROGEN 34 MG/DL (7-18); CALCIUM LEVEL 8.5 MG/DL (8.8-10.2); CARBON DIOXIDE LEVEL 35 MEQ/L (21-32); CHLORIDE LEVEL 105 MEQ/L (98-107); CREATININE FOR GFR 1.08 MG/DL (0.55-1.02); GLOMERULAR FILTRATION RATE 51.6 (>32); GLUCOSE, FASTING 97 MG/DL (70-100); POTASSIUM SERUM 3.5 MEQ/L (3.5-5.1); SODIUM LEVEL 146 MEQ/L (136-145)
[2017-07-20] MEDS: FERROUS SULFATE 325MG TAB PO ×2 (08:51→21:00)
[2017-07-20] MEDS: METOPROLOL TART 25 MG TABLET PO ×2 (08:51→21:00)
[2017-07-20] MEDS: SENOKOT S TAB PO ×2 (08:51→20:59)
[2017-07-20] MEDS: PANTOPRAZOLE 40MG TAB (PROTONIX) PO (08:51)
[2017-07-21] MEDS: FUROSEMIDE 40 MG/4 ML VIAL (J1940) IV ×4 (01:23→17:50)
[2017-07-21] MEDS: DOXYCYCLINE HYCLATE 100 MG in D5W MINI-BAG PLUS 100 ML IV ×2 (04:04→16:00)
[2017-07-21] MEDS: HEPARIN SOD (PORCINE) 5000 UNITS/ML VIAL SC ×3 (05:54→21:28)
[2017-07-21 06:08] LABS: HEMATOCRIT 32.2 % (36.0-47.0); HEMOGLOBIN 9.5 g/dl (12.0-16.0); MEAN CORPUSCULAR HEMOGLOBIN 22.2 pg (27.0-33.0); MEAN CORPUSCULAR HGB CONC 29.5 g/dl (32.0-36.5); MEAN CORPUSCULAR VOLUME 75.4 fl (80.0-96.0); PLATELET COUNT, AUTOMATED 217 10^3/uL (150-450); RED BLOOD COUNT 4.27 10^6/uL (4.00-5.40); RED CELL DISTRIBUTION WIDTH 19.5 % (11.5-14.5); WHITE BLOOD COUNT 5.5 10^3/uL (4.0-10.0)
[2017-07-21 06:33] LABS: ANION GAP 5 MEQ/L (8-16); BLOOD UREA NITROGEN 34 MG/DL (7-18); CALCIUM LEVEL 8.4 MG/DL (8.8-10.2); CARBON DIOXIDE LEVEL 37 MEQ/L (21-32); CHLORIDE LEVEL 103 MEQ/L (98-107); GLOMERULAR FILTRATION RATE 50.5 (>32); GLUCOSE, FASTING 105 MG/DL (70-100); POTASSIUM SERUM 3.5 MEQ/L (3.5-5.1); SODIUM LEVEL 145 MEQ/L (136-145)
[2017-07-21] MEDS: FERROUS SULFATE 325MG TAB PO ×2 (09:03→21:28)
[2017-07-21] MEDS: PANTOPRAZOLE 40MG TAB (PROTONIX) PO (09:03)
[2017-07-21] MEDS: METOPROLOL TART 25 MG TABLET PO ×2 (09:03→22:43)
[2017-07-21] MEDS: SENOKOT S TAB PO ×2 (09:03→21:28)
[2017-07-22] MEDS: DOXYCYCLINE HYCLATE 100 MG in D5W MINI-BAG PLUS 100 ML IV (04:31)
[2017-07-22] MEDS: HEPARIN SOD (PORCINE) 5000 UNITS/ML VIAL SC ×3 (06:00→21:08)
[2017-07-22 06:15] LABS: HEMATOCRIT 30.8 % (36.0-47.0); HEMOGLOBIN 8.9 g/dl (12.0-16.0); MEAN CORPUSCULAR HEMOGLOBIN 22.1 pg (27.0-33.0); MEAN CORPUSCULAR HGB CONC 28.9 g/dl (32.0-36.5); MEAN CORPUSCULAR VOLUME 76.6 fl (80.0-96.0); PLATELET COUNT, AUTOMATED 208 10^3/uL (150-450); RED BLOOD COUNT 4.02 10^6/uL (4.00-5.40); WHITE BLOOD COUNT 6.2 10^3/uL (4.0-10.0)
[2017-07-22 06:27] LABS: ANION GAP 5 MEQ/L (8-16); BLOOD UREA NITROGEN 36 MG/DL (7-18); CALCIUM LEVEL 8.5 MG/DL (8.8-10.2); CARBON DIOXIDE LEVEL 35 MEQ/L (21-32); CHLORIDE LEVEL 104 MEQ/L (98-107); CREATININE FOR GFR 0.96 MG/DL (0.55-1.30); GLOMERULAR FILTRATION RATE 59.1 (>32); GLUCOSE, FASTING 109 MG/DL (70-100); MAGNESIUM LEVEL 1.8 MG/DL (1.8-2.4); POTASSIUM SERUM 3.8 MEQ/L (3.5-5.1); SODIUM LEVEL 144 MEQ/L (136-145)
[2017-07-22] MEDS: AQUAPHOR **100GM** OINT TOP (09:00)
[2017-07-22] MEDS: PANTOPRAZOLE 40MG TAB (PROTONIX) PO (10:18)
[2017-07-22] MEDS: SENOKOT S TAB PO ×2 (10:18→21:07)
[2017-07-22] MEDS: FERROUS SULFATE 325MG TAB PO ×2 (10:18→21:08)
[2017-07-22] MEDS: FUROSEMIDE 40 MG TAB PO ×2 (10:18→16:40)
[2017-07-22] MEDS: METOPROLOL TART 25 MG TABLET PO ×2 (10:19→21:08)
[2017-07-22] MEDS: DOXYCYCLINE HYCLATE 100 MG TAB PO (21:07)
[2017-07-23] MEDS: HEPARIN SOD (PORCINE) 5000 UNITS/ML VIAL SC ×3 (06:10→21:57)
[2017-07-23 06:32] LABS: HEMATOCRIT 31.3 % (36.0-47.0); HEMOGLOBIN 9.2 g/dl (12.0-16.0); MEAN CORPUSCULAR HEMOGLOBIN 22.7 pg (27.0-33.0); MEAN CORPUSCULAR HGB CONC 29.4 g/dl (32.0-36.5); MEAN CORPUSCULAR VOLUME 77.3 fl (80.0-96.0); PLATELET COUNT, AUTOMATED 190 10^3/uL (150-450); RED BLOOD COUNT 4.05 10^6/uL (4.00-5.40); RED CELL DISTRIBUTION WIDTH 20.3 % (11.5-14.5); WHITE BLOOD COUNT 5.2 10^3/uL (4.0-10.0)
[2017-07-23 06:50] LABS: ANION GAP 4 MEQ/L (8-16); BLOOD UREA NITROGEN 37 MG/DL (7-18); CALCIUM LEVEL 8.4 MG/DL (8.8-10.2); CARBON DIOXIDE LEVEL 36 MEQ/L (21-32); CHLORIDE LEVEL 103 MEQ/L (98-107); GLOMERULAR FILTRATION RATE 50.5 (>32); GLUCOSE, FASTING 94 MG/DL (70-100); MAGNESIUM LEVEL 2.1 MG/DL (1.8-2.4); SODIUM LEVEL 143 MEQ/L (136-145)
[2017-07-23] MEDS: FERROUS SULFATE 325MG TAB PO ×2 (09:57→21:57)
[2017-07-23] MEDS: FUROSEMIDE 40 MG TAB PO ×2 (09:59→16:44)
[2017-07-23] MEDS: METOPROLOL TART 25 MG TABLET PO ×2 (09:59→21:57)
[2017-07-23] MEDS: AQUAPHOR **100GM** OINT TOP (10:00)
[2017-07-23] MEDS: PANTOPRAZOLE 40MG TAB (PROTONIX) PO (10:00)
[2017-07-23] MEDS: SENOKOT S TAB PO ×2 (10:00→21:57)
[2017-07-23] MEDS: DOXYCYCLINE HYCLATE 100 MG TAB PO ×2 (10:00→22:01)
[2017-07-24] MEDS: HEPARIN SOD (PORCINE) 5000 UNITS/ML VIAL SC ×3 (06:14→21:08)
[2017-07-24 06:37] LABS: NT-PRO BNP 4475 PG/ML (<450)
[2017-07-24] MEDS: FUROSEMIDE 40 MG TAB PO ×2 (08:56→16:51)
[2017-07-24] MEDS: SENOKOT S TAB PO ×2 (08:56→21:07)
[2017-07-24] MEDS: DOXYCYCLINE HYCLATE 100 MG TAB PO ×2 (08:57→21:04)
[2017-07-24] MEDS: AQUAPHOR **100GM** OINT TOP (08:57)
[2017-07-24] MEDS: PANTOPRAZOLE 40MG TAB (PROTONIX) PO (08:57)
[2017-07-24] MEDS: METOPROLOL TART 25 MG TABLET PO ×2 (08:57→21:07)
[2017-07-24] MEDS: ASPIRIN 81 MG ENTERIC TAB PO (08:57)
[2017-07-24] MEDS: FERROUS SULFATE 325MG TAB PO ×2 (08:57→21:05)
[2017-07-25] MEDS: HEPARIN SOD (PORCINE) 5000 UNITS/ML VIAL SC ×3 (06:11→21:46)
[2017-07-25 08:11] LABS: BASO # 0.1 10^3/uL (0.0-0.2); BASO % 0.9 % (0.0-1.0); EOS # 0.2 10^3/uL (0.0-0.50); EOS % 3.6 % (0.0-3.0); HEMATOCRIT 33.5 % (36.0-47.0); HEMOGLOBIN 9.7 g/dl (12.0-16.0); IMMATURE GRANULOCYTE % 0.3 % (0-0); LYMPH # 2.1 10^3/uL (1.5-4.5); LYMPH % 35.9 % (24.0-44.0); MEAN CORPUSCULAR HEMOGLOBIN 22.8 pg (27.0-33.0); MEAN CORPUSCULAR VOLUME 78.6 fl (80.0-96.0); MONO # 0.5 10^3/uL (0.0-0.8); NEUTROPHILS # 2.9 10^3/uL (1.8-7.7); NEUTROPHILS % 50.3 % (36.0-66.0); PLATELET COUNT, AUTOMATED 215 10^3/uL (150-450); RED BLOOD COUNT 4.26 10^6/uL (4.00-5.40); RED CELL DISTRIBUTION WIDTH 21.4 % (11.5-14.5); WHITE BLOOD COUNT 5.8 10^3/uL (4.0-10.0)
[2017-07-25 08:32] LABS: ANION GAP 3 MEQ/L (8-16); BLOOD UREA NITROGEN 35 MG/DL (7-18); CALCIUM LEVEL 8.8 MG/DL (8.8-10.2); CARBON DIOXIDE LEVEL 36 MEQ/L (21-32); CHLORIDE LEVEL 101 MEQ/L (98-107); CREATININE FOR GFR 1.01 MG/DL (0.55-1.30); GLOMERULAR FILTRATION RATE 55.7 (>32); GLUCOSE, FASTING 89 MG/DL (70-100); POTASSIUM SERUM 4.3 MEQ/L (3.5-5.1); SODIUM LEVEL 140 MEQ/L (136-145)
[2017-07-25] MEDS: SENOKOT S TAB PO ×2 (08:40→21:45)
[2017-07-25] MEDS: ASPIRIN 81 MG ENTERIC TAB PO (08:40)
[2017-07-25] MEDS: PANTOPRAZOLE 40MG TAB (PROTONIX) PO (08:40)
[2017-07-25] MEDS: FUROSEMIDE 40 MG TAB PO ×2 (08:40→17:26)
[2017-07-25] MEDS: METOPROLOL TART 25 MG TABLET PO ×2 (08:40→21:45)
[2017-07-25] MEDS: FERROUS SULFATE 325MG TAB PO ×2 (08:41→21:45)
[2017-07-25] MEDS: AQUAPHOR **100GM** OINT TOP (08:41)
[2017-07-25] MEDS: DOXYCYCLINE HYCLATE 100 MG TAB PO ×2 (08:41→21:45)
[2017-07-25] MEDS ORDERED: guaiFENesin SYRUP 200 MG/10 ML UDC PO (13:00)
[2017-07-25] MEDS: BENZONATATE 100 MG CAP PO ×2 (13:56→21:45)
[2017-07-26 06:06] LABS: BASO # 0.1 10^3/uL (0.0-0.2); BASO % 0.9 % (0.0-1.0); EOS # 0.2 10^3/uL (0.0-0.50); EOS % 4.4 % (0.0-3.0); HEMATOCRIT 32.2 % (36.0-47.0); HEMOGLOBIN 9.4 g/dl (12.0-16.0); IMMATURE GRANULOCYTE % 0.2 % (0-0); LYMPH # 1.9 10^3/uL (1.5-4.5); LYMPH % 35.9 % (24.0-44.0); MEAN CORPUSCULAR HEMOGLOBIN 22.9 pg (27.0-33.0); MEAN CORPUSCULAR HGB CONC 29.2 g/dl (32.0-36.5); MEAN CORPUSCULAR VOLUME 78.3 fl (80.0-96.0); MONO # 0.5 10^3/uL (0.0-0.8); MONO % 9.4 % (0.0-5.0); NEUTROPHILS # 2.7 10^3/uL (1.8-7.7); NEUTROPHILS % 49.2 % (36.0-66.0); PLATELET COUNT, AUTOMATED 215 10^3/uL (150-450); RED BLOOD COUNT 4.11 10^6/uL (4.00-5.40); RED CELL DISTRIBUTION WIDTH 21.6 % (11.5-14.5); WHITE BLOOD COUNT 5.4 10^3/uL (4.0-10.0)
[2017-07-26] MEDS: HEPARIN SOD (PORCINE) 5000 UNITS/ML VIAL SC ×3 (06:08→21:35)
[2017-07-26 06:26] LABS: ANION GAP 5 MEQ/L (8-16); BLOOD UREA NITROGEN 37 MG/DL (7-18); CALCIUM LEVEL 8.7 MG/DL (8.8-10.2); CARBON DIOXIDE LEVEL 36 MEQ/L (21-32); CHLORIDE LEVEL 101 MEQ/L (98-107); CREATININE FOR GFR 0.83 MG/DL (0.55-1.30); GLOMERULAR FILTRATION RATE > 60.0 (>32); GLUCOSE, FASTING 85 MG/DL (70-100); POTASSIUM SERUM 3.9 MEQ/L (3.5-5.1); SODIUM LEVEL 142 MEQ/L (136-145)
[2017-07-26] MEDS: FUROSEMIDE 40 MG TAB PO ×2 (10:22→14:39)
[2017-07-26] MEDS: SENOKOT S TAB PO ×2 (10:22→21:35)
[2017-07-26] MEDS: BENZONATATE 100 MG CAP PO ×2 (10:22→21:35)
[2017-07-26] MEDS: FERROUS SULFATE 325MG TAB PO ×2 (10:22→21:35)
[2017-07-26] MEDS: PANTOPRAZOLE 40MG TAB (PROTONIX) PO (10:23)
[2017-07-26] MEDS: ASPIRIN 81 MG ENTERIC TAB PO (10:24)
[2017-07-26] MEDS: DOXYCYCLINE HYCLATE 100 MG TAB PO ×2 (10:24→21:35)
[2017-07-26] MEDS: METOPROLOL TART 25 MG TABLET PO ×2 (10:24→21:36)
[2017-07-26] MEDS: AQUAPHOR **100GM** OINT TOP (10:25)
[2017-07-26 16:02] LABS: CK-MB VALUE MASS 1.5 NG/ML (0.0-3.6); CPK CREATINE PHOSPHOKINASE 40 U/L (26-192); MB/CK RELATIVE INDEX 3.75 (< OR =4); NT-PRO BNP 3255 PG/ML (<450); TROPONIN I < 0.02 NG/ML (< 0.10)
[2017-07-26 20:56] LABS: CK-MB VALUE MASS 1.4 NG/ML (0.0-3.6); CPK CREATINE PHOSPHOKINASE 23 U/L (26-192); MB/CK RELATIVE INDEX 6.08 (< OR =4); TROPONIN I < 0.02 NG/ML (< 0.10)
[2017-07-27] MEDS: HEPARIN SOD (PORCINE) 5000 UNITS/ML VIAL SC ×3 (06:10→21:01)
[2017-07-27 06:24] LABS: BASO # 0.1 10^3/uL (0.0-0.2); BASO % 0.9 % (0.0-1.0); EOS # 0.2 10^3/uL (0.0-0.50); EOS % 3.4 % (0.0-3.0); HEMATOCRIT 31.6 % (36.0-47.0); HEMOGLOBIN 9.2 g/dl (12.0-16.0); IMMATURE GRANULOCYTE % 0.3 % (0-0); LYMPH # 1.7 10^3/uL (1.5-4.5); LYMPH % 29.7 % (24.0-44.0); MEAN CORPUSCULAR HEMOGLOBIN 22.6 pg (27.0-33.0); MEAN CORPUSCULAR HGB CONC 29.1 g/dl (32.0-36.5); MEAN CORPUSCULAR VOLUME 77.6 fl (80.0-96.0); MONO # 0.5 10^3/uL (0.0-0.8); MONO % 8.9 % (0.0-5.0); NEUTROPHILS # 3.3 10^3/uL (1.8-7.7); NEUTROPHILS % 56.8 % (36.0-66.0); PLATELET COUNT, AUTOMATED 237 10^3/uL (150-450); RED BLOOD COUNT 4.07 10^6/uL (4.00-5.40); RED CELL DISTRIBUTION WIDTH 22.2 % (11.5-14.5); WHITE BLOOD COUNT 5.9 10^3/uL (4.0-10.0)
[2017-07-27 06:41] LABS: ANION GAP 4 MEQ/L (8-16); BLOOD UREA NITROGEN 37 MG/DL (7-18); CALCIUM LEVEL 8.6 MG/DL (8.8-10.2); CARBON DIOXIDE LEVEL 34 MEQ/L (21-32); CHLORIDE LEVEL 102 MEQ/L (98-107); CREATININE FOR GFR 0.91 MG/DL (0.55-1.30); GLOMERULAR FILTRATION RATE > 60.0 (>32); GLUCOSE, FASTING 86 MG/DL (70-100); POTASSIUM SERUM 4.1 MEQ/L (3.5-5.1); SODIUM LEVEL 140 MEQ/L (136-145)
[2017-07-27] MEDS: METOPROLOL TART 25 MG TABLET PO ×2 (09:03→21:02)
[2017-07-27] MEDS: FUROSEMIDE 40 MG TAB PO (09:03)
[2017-07-27] MEDS: PANTOPRAZOLE 40MG TAB (PROTONIX) PO (09:05)
[2017-07-27] MEDS: BENZONATATE 100 MG CAP PO ×2 (09:05→21:00)
[2017-07-27] MEDS: DOXYCYCLINE HYCLATE 100 MG TAB PO ×2 (09:05→21:00)
[2017-07-27] MEDS: ASPIRIN 81 MG ENTERIC TAB PO (09:05)
[2017-07-27] MEDS: FERROUS SULFATE 325MG TAB PO ×2 (09:05→21:00)
[2017-07-27] MEDS: SENOKOT S TAB PO ×2 (09:05→21:00)
[2017-07-27] MEDS: AQUAPHOR **100GM** OINT TOP (09:05)
[2017-07-27 12:32] LABS: BEDSIDE GLUCOSE 126 MG/DL (83-110)
[2017-07-27] MEDS: HumaLOG INSULIN (NovoLOG) PER UNIT SC ×3 (12:55→21:00)
[2017-07-27 16:55] LABS: BEDSIDE GLUCOSE 98 MG/DL (83-110)
[2017-07-28 06:01] LABS: BASO # 0.1 10^3/uL (0.0-0.2); BASO % 0.6 % (0.0-1.0); EOS # 0.2 10^3/uL (0.0-0.50); EOS % 2.4 % (0.0-3.0); HEMATOCRIT 32.2 % (36.0-47.0); HEMOGLOBIN 9.6 g/dl (12.0-16.0); IMMATURE GRANULOCYTE % 0.2 % (0-0); LYMPH # 1.4 10^3/uL (1.5-4.5); LYMPH % 17.1 % (24.0-44.0); MEAN CORPUSCULAR HEMOGLOBIN 23.2 pg (27.0-33.0); MEAN CORPUSCULAR HGB CONC 29.8 g/dl (32.0-36.5); MONO # 0.8 10^3/uL (0.0-0.8); MONO % 9.3 % (0.0-5.0); NEUTROPHILS # 5.7 10^3/uL (1.8-7.7); NEUTROPHILS % 70.4 % (36.0-66.0); PLATELET COUNT, AUTOMATED 249 10^3/uL (150-450); RED BLOOD COUNT 4.13 10^6/uL (4.00-5.40); WHITE BLOOD COUNT 8.2 10^3/uL (4.0-10.0)
[2017-07-28] MEDS: HEPARIN SOD (PORCINE) 5000 UNITS/ML VIAL SC ×3 (06:03→21:59)
[2017-07-28 06:21] LABS: ANION GAP 6 MEQ/L (8-16); BLOOD UREA NITROGEN 33 MG/DL (7-18); CALCIUM LEVEL 8.7 MG/DL (8.8-10.2); CARBON DIOXIDE LEVEL 31 MEQ/L (21-32); CHLORIDE LEVEL 102 MEQ/L (98-107); CREATININE FOR GFR 0.88 MG/DL (0.55-1.30); GLOMERULAR FILTRATION RATE > 60.0 (>32); GLUCOSE, FASTING 87 MG/DL (70-100); POTASSIUM SERUM 4.3 MEQ/L (3.5-5.1); SODIUM LEVEL 139 MEQ/L (136-145)
[2017-07-28 06:57] LABS: BEDSIDE GLUCOSE 163 MG/DL (83-110)
[2017-07-28] MEDS: HumaLOG INSULIN (NovoLOG) PER UNIT SC ×4 (07:12→20:48)
[2017-07-28] MEDS: DOXYCYCLINE HYCLATE 100 MG TAB PO (09:08)
[2017-07-28] MEDS: SENOKOT S TAB PO ×2 (09:08→20:55)
[2017-07-28] MEDS: PANTOPRAZOLE 40MG TAB (PROTONIX) PO (09:08)
[2017-07-28] MEDS: BENZONATATE 100 MG CAP PO ×2 (09:09→20:54)
[2017-07-28] MEDS: METOPROLOL TART 25 MG TABLET PO ×2 (09:09→20:55)
[2017-07-28] MEDS: FERROUS SULFATE 325MG TAB PO ×2 (09:09→20:54)
[2017-07-28] MEDS: FUROSEMIDE 40 MG TAB PO (09:09)
[2017-07-28] MEDS: ASPIRIN 81 MG ENTERIC TAB PO (09:09)
[2017-07-28] MEDS: AQUAPHOR **100GM** OINT TOP (09:10)
[2017-07-28 16:40] LABS: BEDSIDE GLUCOSE 131 MG/DL (83-110)
[2017-07-29] MEDS: HEPARIN SOD (PORCINE) 5000 UNITS/ML VIAL SC ×3 (05:16→21:53)
[2017-07-29 06:13] LABS: BASO % 0.5 % (0.0-1.0); EOS # 0.2 10^3/uL (0.0-0.50); EOS % 2.6 % (0.0-3.0); HEMATOCRIT 30.1 % (36.0-47.0); HEMOGLOBIN 8.9 g/dl (12.0-16.0); IMMATURE GRANULOCYTE % 0.3 % (0-0); LYMPH # 1.2 10^3/uL (1.5-4.5); LYMPH % 14.3 % (24.0-44.0); MEAN CORPUSCULAR HEMOGLOBIN 23.3 pg (27.0-33.0); MEAN CORPUSCULAR HGB CONC 29.6 g/dl (32.0-36.5); MEAN CORPUSCULAR VOLUME 78.8 fl (80.0-96.0); MONO # 0.8 10^3/uL (0.0-0.8); MONO % 9.5 % (0.0-5.0); NEUTROPHILS # 6.3 10^3/uL (1.8-7.7); NEUTROPHILS % 72.8 % (36.0-66.0); PLATELET COUNT, AUTOMATED 230 10^3/uL (150-450); RED BLOOD COUNT 3.82 10^6/uL (4.00-5.40); WHITE BLOOD COUNT 8.6 10^3/uL (4.0-10.0)
[2017-07-29 06:33] LABS: ANION GAP 6 MEQ/L (8-16); BLOOD UREA NITROGEN 36 MG/DL (7-18); CALCIUM LEVEL 8.8 MG/DL (8.8-10.2); CARBON DIOXIDE LEVEL 32 MEQ/L (21-32); CHLORIDE LEVEL 101 MEQ/L (98-107); CREATININE FOR GFR 0.89 MG/DL (0.55-1.30); GLOMERULAR FILTRATION RATE > 60.0 (>32); GLUCOSE, FASTING 95 MG/DL (70-100); POTASSIUM SERUM 4.2 MEQ/L (3.5-5.1); SODIUM LEVEL 139 MEQ/L (136-145)
[2017-07-29] MEDS: HumaLOG INSULIN (NovoLOG) PER UNIT SC ×4 (08:07→21:00)
[2017-07-29] MEDS: SENOKOT S TAB PO ×2 (09:19→21:00)
[2017-07-29] MEDS: BENZONATATE 100 MG CAP PO ×2 (09:21→21:52)
[2017-07-29] MEDS: METOPROLOL TART 25 MG TABLET PO ×2 (09:21→21:52)
[2017-07-29] MEDS: ASPIRIN 81 MG ENTERIC TAB PO (09:21)
[2017-07-29] MEDS: PANTOPRAZOLE 40MG TAB (PROTONIX) PO (09:21)
[2017-07-29] MEDS: FERROUS SULFATE 325MG TAB PO ×2 (09:21→21:52)
[2017-07-29] MEDS: FUROSEMIDE 40 MG TAB PO (09:22)
[2017-07-29] MEDS: AQUAPHOR **100GM** OINT TOP (09:23)
[2017-07-29 21:30] LABS: BEDSIDE GLUCOSE 112 MG/DL (83-110)
[2017-07-29 21:30] LABS: BEDSIDE GLUCOSE 157 MG/DL (83-110)
[2017-07-29 21:30] LABS: BEDSIDE GLUCOSE 107 MG/DL (83-110)
[2017-07-29 22:26] LABS: BEDSIDE GLUCOSE 106 MG/DL (83-110)
[2017-07-30] MEDS: HEPARIN SOD (PORCINE) 5000 UNITS/ML VIAL SC ×3 (05:30→21:48)
[2017-07-30 06:15] LABS: BASO # 0.1 10^3/uL (0.0-0.2); BASO % 0.7 % (0.0-1.0); EOS # 0.2 10^3/uL (0.0-0.50); EOS % 2.8 % (0.0-3.0); HEMATOCRIT 28.7 % (36.0-47.0); HEMOGLOBIN 8.5 g/dl (12.0-16.0); IMMATURE GRANULOCYTE % 0.3 % (0-0); LYMPH # 1.6 10^3/uL (1.5-4.5); LYMPH % 20.9 % (24.0-44.0); MEAN CORPUSCULAR HEMOGLOBIN 23.2 pg (27.0-33.0); MEAN CORPUSCULAR HGB CONC 29.6 g/dl (32.0-36.5); MEAN CORPUSCULAR VOLUME 78.2 fl (80.0-96.0); MONO # 0.6 10^3/uL (0.0-0.8); MONO % 8.5 % (0.0-5.0); NEUTROPHILS % 66.8 % (36.0-66.0); PLATELET COUNT, AUTOMATED 261 10^3/uL (150-450); RED BLOOD COUNT 3.67 10^6/uL (4.00-5.40); RED CELL DISTRIBUTION WIDTH 23.7 % (11.5-14.5); WHITE BLOOD COUNT 7.5 10^3/uL (4.0-10.0)
[2017-07-30 06:31] LABS: ANION GAP 5 MEQ/L (8-16); BLOOD UREA NITROGEN 36 MG/DL (7-18); CALCIUM LEVEL 8.8 MG/DL (8.8-10.2); CARBON DIOXIDE LEVEL 32 MEQ/L (21-32); CHLORIDE LEVEL 102 MEQ/L (98-107); CREATININE FOR GFR 0.95 MG/DL (0.55-1.30); GLOMERULAR FILTRATION RATE 59.8 (>32); GLUCOSE, FASTING 87 MG/DL (70-100); POTASSIUM SERUM 4.1 MEQ/L (3.5-5.1); SODIUM LEVEL 139 MEQ/L (136-145)
[2017-07-30] MEDS: HumaLOG INSULIN (NovoLOG) PER UNIT SC ×4 (07:09→21:00)
[2017-07-30] MEDS: BENZONATATE 100 MG CAP PO ×2 (08:57→21:48)
[2017-07-30] MEDS: PANTOPRAZOLE 40MG TAB (PROTONIX) PO (08:57)
[2017-07-30] MEDS: FERROUS SULFATE 325MG TAB PO ×2 (08:57→21:48)
[2017-07-30] MEDS: ASPIRIN 81 MG ENTERIC TAB PO (08:57)
[2017-07-30] MEDS: METOPROLOL TART 25 MG TABLET PO ×2 (08:58→21:49)
[2017-07-30] MEDS: FUROSEMIDE 40 MG TAB PO ×2 (08:58→08:59)
[2017-07-30] MEDS: SENOKOT S TAB PO ×2 (08:58→21:48)
[2017-07-30] MEDS: AQUAPHOR **100GM** OINT TOP (08:59)
[2017-07-31] MEDS: HEPARIN SOD (PORCINE) 5000 UNITS/ML VIAL SC (05:10)
[2017-07-31 05:22] LABS: BEDSIDE GLUCOSE 116 MG/DL (83-110)
[2017-07-31 05:22] LABS: BEDSIDE GLUCOSE 160 MG/DL (83-110)
[2017-07-31 05:22] LABS: BEDSIDE GLUCOSE 105 MG/DL (83-110)
[2017-07-31 06:44] LABS: BEDSIDE GLUCOSE 86 MG/DL (83-110)
[2017-07-31] MEDS: HumaLOG INSULIN (NovoLOG) PER UNIT SC (07:18)
[2017-07-31] MEDS: ASPIRIN 81 MG ENTERIC TAB PO (08:11)
[2017-07-31] MEDS: FUROSEMIDE 40 MG TAB PO (08:11)
[2017-07-31] MEDS: FERROUS SULFATE 325MG TAB PO (08:11)
[2017-07-31] MEDS: BENZONATATE 100 MG CAP PO (08:11)
[2017-07-31] MEDS: PANTOPRAZOLE 40MG TAB (PROTONIX) PO (08:11)
[2017-07-31] MEDS: SENOKOT S TAB PO (08:11)
[2017-07-31] MEDS: AQUAPHOR **100GM** OINT TOP (08:14)
[2017-07-31] MEDS: METOPROLOL TART 25 MG TABLET PO (08:14)
== END 2017-07-31 11:56 | DRG 602 ==
LOC: M MSPAV 07-27 15:48 → M ED 10:42 → M ED INP 14:48 → M MSPAV 17:28
PROVIDERS: Hospitalist
PROC: 30253N1 (ICD-10-PCS; principal; 2017-07-16)
DX: L03.115 Cellulitis of right lower limb (principal); I50.33 Acute on chronic diastolic (congestive) heart failure; I13.0 Hypertensive heart and chronic kidney disease with heart failure and stage 1 through stage 4 chronic kidney disease, or unspecified chronic kidney disease; L97.229 Non-pressure chronic ulcer of left calf with unspecified severity; L97.519 Non-pressure chronic ulcer of other part of right foot with unspecified severity; L03.116 Cellulitis of left lower limb; E11.621 Type 2 diabetes mellitus with foot ulcer; E11.22 Type 2 diabetes mellitus with diabetic chronic kidney disease; N18.3 Chronic kidney disease, stage 3 (moderate); Z66 Do not resuscitate; I48.2 Chronic atrial fibrillation; I27.20 Pulmonary hypertension, unspecified; D25.9 Leiomyoma of uterus, unspecified; R26.81 Unsteadiness on feet; I87.2 Venous insufficiency (chronic) (peripheral); D50.9 Iron deficiency anemia, unspecified; Z79.84 Long term (current) use of oral hypoglycemic drugs; Z79.899 Other long term (current) drug therapy; Z91.81 History of falling; Z88.8 Allergy status to other drugs, medicaments and biological substances

== ENCOUNTER → 2017-09-18 | Outpatient (REF) | payer MEDICARE, MEDICAID ==
[2017-09-18 09:28] LABS: BASO % 0.7 % (0.0-1.0); EOS # 0.2 10^3/uL (0.0-0.50); EOS % 4.1 % (0.0-3.0); HEMATOCRIT 33.1 % (36.0-47.0); HEMOGLOBIN 10.3 g/dl (12.0-16.0); IMMATURE GRANULOCYTE % 0.2 % (0-3.0); LYMPH # 1.1 10^3/uL (1.5-4.5); LYMPH % 24.4 % (24.0-44.0); MEAN CORPUSCULAR HEMOGLOBIN 27.8 pg (27.0-33.0); MEAN CORPUSCULAR HGB CONC 31.1 g/dl (32.0-36.5); MEAN CORPUSCULAR VOLUME 89.5 fl (80.0-96.0); MONO # 0.6 10^3/uL (0.0-0.8); MONO % 12.9 % (0.0-5.0); NEUTROPHILS # 2.5 10^3/uL (1.8-7.7); NEUTROPHILS % 57.7 % (36.0-66.0); PLATELET COUNT, AUTOMATED 204 10^3/uL (150-450); RED CELL DISTRIBUTION WIDTH 21.4 % (11.5-14.5); WHITE BLOOD COUNT 4.3 10^3/uL (4.0-10.0)
[2017-09-18 09:58] LABS: ANION GAP 6 MEQ/L (8-16); BLOOD UREA NITROGEN 25 MG/DL (7-18); CALCIUM LEVEL 8.7 MG/DL (8.8-10.2); CARBON DIOXIDE LEVEL 31 MEQ/L (21-32); CHLORIDE LEVEL 100 MEQ/L (98-107); GLOMERULAR FILTRATION RATE > 60.0 (>32); GLUCOSE, FASTING 126 MG/DL (70-100); POTASSIUM SERUM 3.7 MEQ/L (3.5-5.1); SODIUM LEVEL 137 MEQ/L (136-145)
== END ==
LOC: SKLAB5 07:39
DX: N18.9 Chronic kidney disease, unspecified (principal)
CPT/HCPCS: 36415

== ENCOUNTER → 2017-09-22 | Outpatient (REF) | payer MEDICARE, MEDICAID ==
[2017-09-22 13:56] LABS: HEMATOCRIT 34.2 % (36.0-47.0); HEMOGLOBIN 10.7 g/dl (12.0-15.5); MEAN CORPUSCULAR HEMOGLOBIN 27.9 pg (27.0-33.0); MEAN CORPUSCULAR HGB CONC 31.3 g/dl (32.0-36.5); MEAN CORPUSCULAR VOLUME 89.3 fl (80.0-96.0); PLATELET COUNT, AUTOMATED 239 10^3/uL (150-450); RED BLOOD COUNT 3.83 10^6/uL (4.00-5.40); RED CELL DISTRIBUTION WIDTH 21.1 % (11.5-14.5); WHITE BLOOD COUNT 4.9 10^3/uL (4.0-10.0)
[2017-09-22 14:06] LABS: INR 1.07; PROTHROMBIN TIME 14.1 SECONDS (12.4-14.5)
[2017-09-22 14:07] LABS: PARTIAL THROMBOPLASTIN TIME 33.7 SECONDS (26.8-37.9)
== END ==
LOC: SKLAB5 12:34
DX: R60.0 Localized edema (principal)

== ENCOUNTER → 2017-09-22 | Outpatient (CLI) | payer MEDICARE, MEDICAID | LOC: M RAD 14:22 | DX: M71.21 Synovial cyst of popliteal space [Baker], right knee (principal); R60.0 Localized edema; Z79.82 Long term (current) use of aspirin; Z79.899 Other long term (current) drug therapy | CPT/HCPCS: 93971 ==

== ENCOUNTER 2017-10-01 03:24 | Inpatient (IN) | payer MEDICARE, MEDICAID ==
[2017-10-01 04:09] LABS: BASO % 0.6 % (0.0-1.0); EOS # 0.2 10^3/uL (0.0-0.50); EOS % 3.7 % (0.0-3.0); HEMOGLOBIN 7.2 g/dl (12.0-15.5); IMMATURE GRANULOCYTE % 0.8 % (0-3.0); LYMPH # 1.2 10^3/uL (1.5-4.5); LYMPH % 23.5 % (24.0-44.0); MEAN CORPUSCULAR HEMOGLOBIN 28.7 pg (27.0-33.0); MEAN CORPUSCULAR HGB CONC 31.3 g/dl (32.0-36.5); MEAN CORPUSCULAR VOLUME 91.6 fl (80.0-96.0); MONO # 0.6 10^3/uL (0.0-0.8); MONO % 11.6 % (0.0-5.0); NEUTROPHILS # 3.1 10^3/uL (1.8-7.7); NEUTROPHILS % 59.8 % (36.0-66.0); PLATELET COUNT, AUTOMATED 198 10^3/uL (150-450); RED BLOOD COUNT 2.51 10^6/uL (4.00-5.40); RED CELL DISTRIBUTION WIDTH 19.8 % (11.5-14.5); WHITE BLOOD COUNT 5.2 10^3/uL (4.0-10.0)
[2017-10-01] MEDS: NS 1,000 ML IV ×3 (04:20→17:14)
[2017-10-01 04:23] LABS: ANION GAP 4 MEQ/L (8-16); BLOOD UREA NITROGEN 40 MG/DL (7-18); CARBON DIOXIDE LEVEL 33 MEQ/L (21-32); CHLORIDE LEVEL 101 MEQ/L (98-107); CREATININE FOR GFR 0.88 MG/DL (0.55-1.30); GLOMERULAR FILTRATION RATE > 60.0 (>32); GLUCOSE, FASTING 121 MG/DL (70-100); POTASSIUM SERUM 4.7 MEQ/L (3.5-5.1); SODIUM LEVEL 138 MEQ/L (136-145)
[2017-10-01] MEDS ORDERED: ISOVUE-370 76% 100ML VIAL (Q9967) As Ordered (04:44)
[2017-10-01] MEDS ORDERED: ONDANSETRON 4MG/2ML VIAL (J2405) IV ×2 (04:45→19:00)
[2017-10-01 05:02] LABS: IMMEDIATE SPIN CROSSMATCH 1 2
[2017-10-01] MEDS ORDERED: fentaNYL 100 MCG/2 ML INJECTION (J3010) As Ordered ×2 (05:06→17:48)
[2017-10-01] MEDS: fentaNYL 100 MCG/2 ML INJECTION (J3010) IV (05:15)
[2017-10-01] MEDS ORDERED: GLUCAGON FOR INJ 1 MG VIAL (J1610) SC (05:30)
[2017-10-01] MEDS ORDERED: GLUCOSE 4 GM CHEW TABLET PO (05:30)
[2017-10-01] MEDS ORDERED: DEXTROSE 50% 50 ML SYRINGE IV (05:30)
[2017-10-01] MEDS: HumaLOG INSULIN (NovoLOG) PER UNIT SC ×4 (06:00→21:00)
[2017-10-01 06:13] LABS: BEDSIDE GLUCOSE 120 MG/DL (83-110)
[2017-10-01] MEDS: ACETAMINOPHEN TAB 650MG DOSE (2X325MG) PO ×2 (06:34→21:47)
[2017-10-01 11:51] LABS: BEDSIDE GLUCOSE 97 MG/DL (83-110)
[2017-10-01 11:59] LABS: HEMOGLOBIN 9.1 g/dl (12.0-15.5)
[2017-10-01 16:03] LABS: HEMATOCRIT 28.3 % (36.0-47.0); HEMOGLOBIN 9.1 g/dl (12.0-15.5)
[2017-10-01 17:37] LABS: BEDSIDE GLUCOSE 76 MG/DL (83-110)
[2017-10-01] MEDS ORDERED: PROPOFOL 200 MG/20 ML VIAL As Ordered (17:47)
[2017-10-01] MEDS ORDERED: MIDAZOLAM INJ 2 MG/2 ML VIAL (J2250) As Ordered (17:47)
[2017-10-01] MEDS: LIDOCAINE 1% SDV INJ 30 ML VIAL As Ordered (18:03)
[2017-10-01] MEDS: BUPIVACAINE HCL 0.5% 30 ML VIAL As Ordered (18:03)
[2017-10-01] MEDS: ceFAZolin 2 GM/D5W 50 ML IV BAG (J0690 PER 500MG) As Ordered (18:15)
[2017-10-01] MEDS: LR 1,000 ML IV (19:00)
[2017-10-01] MEDS ORDERED: PERCOCET 5MG/325MG TAB PO (19:00)
[2017-10-01] MEDS ORDERED: fentaNYL 100 MCG/2 ML INJECTION (J3010) IV (19:00)
[2017-10-01 19:17] LABS: BEDSIDE GLUCOSE 105 MG/DL (83-110)
[2017-10-01 21:51] LABS: BEDSIDE GLUCOSE 164 MG/DL (83-110)
[2017-10-01 22:27] LABS: HEMATOCRIT 24.3 % (36.0-47.0); HEMOGLOBIN 7.7 g/dl (12.0-15.5)
[2017-10-02] MEDS: NORCO, ANEXSIA 5/325MG TABLET (HYDROcodone/ACETAMINOPHEN) PO ×3 (00:18→10:26)
[2017-10-02] MEDS: NS 1,000 ML IV (03:15)
[2017-10-02 05:05] LABS: HEMATOCRIT 25.2 % (36.0-47.0); HEMOGLOBIN 7.8 g/dl (12.0-15.5); MEAN CORPUSCULAR HEMOGLOBIN 29.3 pg (27.0-33.0); MEAN CORPUSCULAR VOLUME 94.7 fl (80.0-96.0); PLATELET COUNT, AUTOMATED 145 10^3/uL (150-450); RED BLOOD COUNT 2.66 10^6/uL (4.00-5.40); RED CELL DISTRIBUTION WIDTH 18.3 % (11.5-14.5); WHITE BLOOD COUNT 4.6 10^3/uL (4.0-10.0)
[2017-10-02 05:27] LABS: ANION GAP 4 MEQ/L (8-16); BLOOD UREA NITROGEN 30 MG/DL (7-18); CALCIUM LEVEL 7.9 MG/DL (8.8-10.2); CARBON DIOXIDE LEVEL 25 MEQ/L (21-32); CHLORIDE LEVEL 110 MEQ/L (98-107); CREATININE FOR GFR 0.83 MG/DL (0.55-1.30); GLOMERULAR FILTRATION RATE > 60.0 (>32); GLUCOSE, FASTING 91 MG/DL (70-100); POTASSIUM SERUM 4.5 MEQ/L (3.5-5.1); SODIUM LEVEL 139 MEQ/L (136-145)
[2017-10-02] MEDS: HumaLOG INSULIN (NovoLOG) PER UNIT SC ×4 (07:30→21:00)
[2017-10-02 08:40] LABS: INR 1.33; PROTHROMBIN TIME 16.8 SECONDS (12.4-14.5)
[2017-10-02 08:48] LABS: ALBUMIN 2.4 GM/DL (3.2-5.2); ALBUMIN/GLOBULIN RATIO 0.96 (1.00-1.93); ALKALINE PHOSPHATASE 106 U/L (45-117); ALT/SGPT 18 U/L (12-78); AST/SGOT 17 U/L (7-37); BILIRUBIN,DIRECT 0.2 MG/DL (0.0-0.2); BILIRUBIN,TOTAL 0.5 MG/DL (0.2-1.0); TOTAL PROTEIN 4.9 GM/DL (6.4-8.2)
[2017-10-02 11:41] LABS: BEDSIDE GLUCOSE 129 MG/DL (83-110)
[2017-10-02 13:03] LABS: HEMATOCRIT 25.6 % (36.0-47.0); HEMOGLOBIN 8.1 g/dl (12.0-15.5); MEAN CORPUSCULAR HEMOGLOBIN 29.1 pg (27.0-33.0); MEAN CORPUSCULAR HGB CONC 31.6 g/dl (32.0-36.5); MEAN CORPUSCULAR VOLUME 92.1 fl (80.0-96.0); PLATELET COUNT, AUTOMATED 180 10^3/uL (150-450); RED BLOOD COUNT 2.78 10^6/uL (4.00-5.40); RED CELL DISTRIBUTION WIDTH 18.2 % (11.5-14.5); WHITE BLOOD COUNT 5.6 10^3/uL (4.0-10.0)
[2017-10-02 17:00] LABS: BEDSIDE GLUCOSE 159 MG/DL (83-110)
[2017-10-02 20:46] LABS: BEDSIDE GLUCOSE 139 MG/DL (83-110)
[2017-10-03 06:58] LABS: HEMOGLOBIN 7.8 g/dl (12.0-15.5); MEAN CORPUSCULAR HEMOGLOBIN 29.4 pg (27.0-33.0); MEAN CORPUSCULAR HGB CONC 31.2 g/dl (32.0-36.5); MEAN CORPUSCULAR VOLUME 94.3 fl (80.0-96.0); PLATELET COUNT, AUTOMATED 181 10^3/uL (150-450); RED BLOOD COUNT 2.65 10^6/uL (4.00-5.40); RED CELL DISTRIBUTION WIDTH 18.3 % (11.5-14.5); WHITE BLOOD COUNT 5.8 10^3/uL (4.0-10.0)
[2017-10-03 07:16] LABS: ANION GAP 4 MEQ/L (8-16); BLOOD UREA NITROGEN 25 MG/DL (7-18); CALCIUM LEVEL 8.2 MG/DL (8.8-10.2); CARBON DIOXIDE LEVEL 30 MEQ/L (21-32); CHLORIDE LEVEL 110 MEQ/L (98-107); CREATININE FOR GFR 0.66 MG/DL (0.55-1.30); GLOMERULAR FILTRATION RATE > 60.0 (>32); GLUCOSE, FASTING 102 MG/DL (70-100); POTASSIUM SERUM 4.6 MEQ/L (3.5-5.1); SODIUM LEVEL 144 MEQ/L (136-145)
[2017-10-03 08:59] LABS: FERRITIN 26 NG/ML (8-252); IRON (FE) 22 UG/DL (50-170); TOTAL IRON BINDING CAPACITY 316 UG/DL (250-450)
[2017-10-03] MEDS: HumaLOG INSULIN (NovoLOG) PER UNIT SC ×4 (09:12→20:24)
[2017-10-03 09:26] LABS: VITAMIN B12 LEVEL 254 PG/ML (247-911)
[2017-10-03 09:30] LABS: FOLATE 14.6 NG/ML (>5.4)
[2017-10-03 12:18] LABS: BEDSIDE GLUCOSE 111 MG/DL (83-110)
[2017-10-03 16:57] LABS: BEDSIDE GLUCOSE 124 MG/DL (83-110)
[2017-10-03 20:25] LABS: BEDSIDE GLUCOSE 133 MG/DL (83-110)
[2017-10-04 06:55] LABS: HEMATOCRIT 26.2 % (36.0-47.0); MEAN CORPUSCULAR HEMOGLOBIN 28.4 pg (27.0-33.0); MEAN CORPUSCULAR HGB CONC 30.5 g/dl (32.0-36.5); MEAN CORPUSCULAR VOLUME 92.9 fl (80.0-96.0); PLATELET COUNT, AUTOMATED 216 10^3/uL (150-450); RED BLOOD COUNT 2.82 10^6/uL (4.00-5.40); RED CELL DISTRIBUTION WIDTH 17.9 % (11.5-14.5); WHITE BLOOD COUNT 6.3 10^3/uL (4.0-10.0)
[2017-10-04 07:13] LABS: ANION GAP 6 MEQ/L (8-16); BLOOD UREA NITROGEN 17 MG/DL (7-18); CALCIUM LEVEL 8.3 MG/DL (8.8-10.2); CARBON DIOXIDE LEVEL 28 MEQ/L (21-32); CHLORIDE LEVEL 109 MEQ/L (98-107); CREATININE FOR GFR 0.62 MG/DL (0.55-1.30); GLOMERULAR FILTRATION RATE > 60.0 (>32); GLUCOSE, FASTING 119 MG/DL (70-100); POTASSIUM SERUM 4.4 MEQ/L (3.5-5.1); SODIUM LEVEL 143 MEQ/L (136-145)
[2017-10-04] MEDS: HumaLOG INSULIN (NovoLOG) PER UNIT SC ×4 (07:43→20:01)
[2017-10-04 11:48] LABS: BEDSIDE GLUCOSE 119 MG/DL (83-110)
[2017-10-04] MEDS: METOPROLOL TART 25 MG TABLET PO ×2 (14:31→20:17)
[2017-10-04 16:57] LABS: BEDSIDE GLUCOSE 160 MG/DL (83-110)
[2017-10-04 20:02] LABS: BEDSIDE GLUCOSE 118 MG/DL (83-110)
[2017-10-05 06:51] LABS: HEMATOCRIT 26.4 % (36.0-47.0); MEAN CORPUSCULAR HEMOGLOBIN 28.3 pg (27.0-33.0); MEAN CORPUSCULAR HGB CONC 30.3 g/dl (32.0-36.5); MEAN CORPUSCULAR VOLUME 93.3 fl (80.0-96.0); PLATELET COUNT, AUTOMATED 231 10^3/uL (150-450); RED BLOOD COUNT 2.83 10^6/uL (4.00-5.40); RED CELL DISTRIBUTION WIDTH 17.4 % (11.5-14.5); WHITE BLOOD COUNT 5.8 10^3/uL (4.0-10.0)
[2017-10-05 07:12] LABS: ANION GAP 5 MEQ/L (8-16); BLOOD UREA NITROGEN 23 MG/DL (7-18); CALCIUM LEVEL 8.3 MG/DL (8.8-10.2); CARBON DIOXIDE LEVEL 28 MEQ/L (21-32); CHLORIDE LEVEL 110 MEQ/L (98-107); CREATININE FOR GFR 0.71 MG/DL (0.55-1.30); GLOMERULAR FILTRATION RATE > 60.0 (>32); GLUCOSE, FASTING 137 MG/DL (70-100); POTASSIUM SERUM 5.1 MEQ/L (3.5-5.1); SODIUM LEVEL 143 MEQ/L (136-145)
[2017-10-05] MEDS: HumaLOG INSULIN (NovoLOG) PER UNIT SC ×4 (07:47→21:00)
[2017-10-05] MEDS: METOPROLOL TART 25 MG TABLET PO ×2 (07:47→21:08)
[2017-10-05 11:53] LABS: BEDSIDE GLUCOSE 128 MG/DL (83-110)
[2017-10-05 16:55] LABS: BEDSIDE GLUCOSE 122 MG/DL (83-110)
[2017-10-05 21:00] LABS: BEDSIDE GLUCOSE 112 MG/DL (83-110)
[2017-10-05] MEDS: FERROUS SULFATE 300MG/5ML UDC LIQUID PO (22:38)
[2017-10-06 06:54] LABS: HEMATOCRIT 26.7 % (36.0-47.0); MEAN CORPUSCULAR HEMOGLOBIN 28.2 pg (27.0-33.0); PLATELET COUNT, AUTOMATED 253 10^3/uL (150-450); RED BLOOD COUNT 2.84 10^6/uL (4.00-5.40); RED CELL DISTRIBUTION WIDTH 17.1 % (11.5-14.5); WHITE BLOOD COUNT 6.4 10^3/uL (4.0-10.0)
[2017-10-06 07:17] LABS: ANION GAP 5 MEQ/L (8-16); BLOOD UREA NITROGEN 30 MG/DL (7-18); CALCIUM LEVEL 8.3 MG/DL (8.8-10.2); CARBON DIOXIDE LEVEL 29 MEQ/L (21-32); CHLORIDE LEVEL 109 MEQ/L (98-107); CREATININE FOR GFR 0.74 MG/DL (0.55-1.30); GLOMERULAR FILTRATION RATE > 60.0 (>32); GLUCOSE, FASTING 114 MG/DL (70-100); POTASSIUM SERUM 4.9 MEQ/L (3.5-5.1); SODIUM LEVEL 143 MEQ/L (136-145)
[2017-10-06] MEDS: METOPROLOL TART 25 MG TABLET PO (08:00)
[2017-10-06] MEDS: HumaLOG INSULIN (NovoLOG) PER UNIT SC (08:00)
[2017-10-06] MEDS: FERROUS SULFATE 300MG/5ML UDC LIQUID PO (08:00)
== END 2017-10-06 11:45 | DRG 812 ==
LOC: M MS4PR 10-02 15:04 → M ED 03:24 → M ED INP 04:43 → M ICU 05:49
PROC: 0Y9H0ZZ Drainage of Right Lower Leg, Open Approach (ICD-10-PCS; 2017-10-01 09:58)
PROC: 0HQKXZZ Repair Right Lower Leg Skin, External Approach (ICD-10-PCS; 2017-10-01 09:58)
PROC: 30233N1 Transfusion of Nonautologous Red Blood Cells into Peripheral Vein, Percutaneous Approach (ICD-10-PCS; principal; 2017-10-01 18:07)
DX: D62 Acute posthemorrhagic anemia (principal); I50.32 Chronic diastolic (congestive) heart failure; I13.0 Hypertensive heart and chronic kidney disease with heart failure and stage 1 through stage 4 chronic kidney disease, or unspecified chronic kidney disease; I82.531 Chronic embolism and thrombosis of right popliteal vein; Z66 Do not resuscitate; S80.11XA Contusion of right lower leg, initial encounter; N18.3 Chronic kidney disease, stage 3 (moderate); I48.0 Paroxysmal atrial fibrillation; E11.9 Type 2 diabetes mellitus without complications; Z79.82 Long term (current) use of aspirin; Z79.01 Long term (current) use of anticoagulants; W20.8XXA Other cause of strike by thrown, projected or falling object, initial encounter; Y92.129 Unspecified place in nursing home as the place of occurrence of the external cause; Z79.899 Other long term (current) drug therapy; Z88.8 Allergy status to other drugs, medicaments and biological substances; Y93.01 Activity, walking, marching and hiking

== ENCOUNTER → 2017-10-09 | Outpatient (REF) ==
[2017-10-09 11:32] LABS: BASO % 0.5 % (0.0-1.0); EOS # 0.1 10^3/uL (0.0-0.50); EOS % 1.6 % (0.0-3.0); HEMATOCRIT 28.4 % (36.0-47.0); HEMOGLOBIN 8.2 g/dl (12.0-15.5); IMMATURE GRANULOCYTE % 0.9 % (0-3.0); LYMPH # 0.9 10^3/uL (1.5-4.5); LYMPH % 16.9 % (24.0-44.0); MEAN CORPUSCULAR HEMOGLOBIN 27.7 pg (27.0-33.0); MEAN CORPUSCULAR HGB CONC 28.9 g/dl (32.0-36.5); MEAN CORPUSCULAR VOLUME 95.9 fl (80.0-96.0); MONO # 0.7 10^3/uL (0.0-0.8); MONO % 12.2 % (0.0-5.0); NEUTROPHILS # 3.8 10^3/uL (1.8-7.7); NEUTROPHILS % 67.9 % (36.0-66.0); PLATELET COUNT, AUTOMATED 275 10^3/uL (150-450); RED BLOOD COUNT 2.96 10^6/uL (4.00-5.40); WHITE BLOOD COUNT 5.6 10^3/uL (4.0-10.0)
[2017-10-09 11:59] LABS: ALBUMIN/GLOBULIN RATIO 0.91 (1.00-1.93); ALKALINE PHOSPHATASE 155 U/L (45-117); ALT/SGPT 23 U/L (12-78); ANION GAP 3 MEQ/L (8-16); AST/SGOT 18 U/L (7-37); BILIRUBIN,TOTAL 0.5 MG/DL (0.2-1.0); BLOOD UREA NITROGEN 28 MG/DL (7-18); CALCIUM LEVEL 8.1 MG/DL (8.8-10.2); CARBON DIOXIDE LEVEL 34 MEQ/L (21-32); CHLORIDE LEVEL 108 MEQ/L (98-107); CREATININE FOR GFR 0.76 MG/DL (0.55-1.30); GLOMERULAR FILTRATION RATE > 60.0 (>32); GLUCOSE, FASTING 140 MG/DL (70-100); NT-PRO BNP 10500 PG/ML (<450); POTASSIUM SERUM 4.7 MEQ/L (3.5-5.1); SODIUM LEVEL 145 MEQ/L (136-145); TOTAL PROTEIN 6.3 GM/DL (6.4-8.2)
== END ==
LOC: SKLAB5 10:48
DX: R50.9 Fever, unspecified (principal); R09.02 Hypoxemia

== ENCOUNTER → 2017-10-13 | Outpatient (REF) ==
[2017-10-13 08:01] LABS: HEMATOCRIT 28.5 % (36.0-47.0); HEMOGLOBIN 8.4 g/dl (12.0-15.5); MEAN CORPUSCULAR HEMOGLOBIN 27.7 pg (27.0-33.0); MEAN CORPUSCULAR HGB CONC 29.5 g/dl (32.0-36.5); MEAN CORPUSCULAR VOLUME 94.1 fl (80.0-96.0); PLATELET COUNT, AUTOMATED 275 10^3/uL (150-450); RED BLOOD COUNT 3.03 10^6/uL (4.00-5.40); RED CELL DISTRIBUTION WIDTH 16.9 % (11.5-14.5); WHITE BLOOD COUNT 6.3 10^3/uL (4.0-10.0)
[2017-10-13 08:28] LABS: ANION GAP 5 MEQ/L (8-16); BLOOD UREA NITROGEN 24 MG/DL (7-18); CALCIUM LEVEL 8.3 MG/DL (8.8-10.2); CARBON DIOXIDE LEVEL 42 MEQ/L (21-32); CHLORIDE LEVEL 101 MEQ/L (98-107); CREATININE FOR GFR 0.83 MG/DL (0.55-1.30); GLOMERULAR FILTRATION RATE > 60.0 (>32); GLUCOSE, FASTING 104 MG/DL (70-100); POTASSIUM SERUM 4.1 MEQ/L (3.5-5.1); SODIUM LEVEL 148 MEQ/L (136-145)
== END ==
LOC: SKLAB5 08:50
DX: D64.9 Anemia, unspecified (principal)

== ENCOUNTER → 2017-10-20 | Outpatient (REF) ==
[2017-10-20 09:08] LABS: HEMATOCRIT 32.5 % (36.0-47.0); HEMOGLOBIN 9.6 g/dl (12.0-15.5); MEAN CORPUSCULAR HGB CONC 29.5 g/dl (32.0-36.5); MEAN CORPUSCULAR VOLUME 94.8 fl (80.0-96.0); PLATELET COUNT, AUTOMATED 277 10^3/uL (150-450); RED BLOOD COUNT 3.43 10^6/uL (4.00-5.40); RED CELL DISTRIBUTION WIDTH 16.5 % (11.5-14.5); WHITE BLOOD COUNT 6.5 10^3/uL (4.0-10.0)
[2017-10-20 09:18] LABS: ANION GAP 2 MEQ/L (8-16); BLOOD UREA NITROGEN 28 MG/DL (7-18); CALCIUM LEVEL 8.5 MG/DL (8.8-10.2); CARBON DIOXIDE LEVEL 38 MEQ/L (21-32); CHLORIDE LEVEL 103 MEQ/L (98-107); CREATININE FOR GFR 0.87 MG/DL (0.55-1.30); GLOMERULAR FILTRATION RATE > 60.0 (>32); GLUCOSE, FASTING 103 MG/DL (70-100); POTASSIUM SERUM 3.6 MEQ/L (3.5-5.1); SODIUM LEVEL 143 MEQ/L (136-145)
== END ==
LOC: SKLAB5 06:16
DX: D64.9 Anemia, unspecified (principal)

== ENCOUNTER → 2017-10-27 | Outpatient (REF) ==
[2017-10-27 06:49] LABS: HEMATOCRIT 29.9 % (36.0-47.0); HEMOGLOBIN 8.9 g/dl (12.0-15.5); MEAN CORPUSCULAR HEMOGLOBIN 27.7 pg (27.0-33.0); MEAN CORPUSCULAR HGB CONC 29.8 g/dl (32.0-36.5); MEAN CORPUSCULAR VOLUME 93.1 fl (80.0-96.0); PLATELET COUNT, AUTOMATED 281 10^3/uL (150-450); RED BLOOD COUNT 3.21 10^6/uL (4.00-5.40); RED CELL DISTRIBUTION WIDTH 15.8 % (11.5-14.5); WHITE BLOOD COUNT 5.4 10^3/uL (4.0-10.0)
[2017-10-27 07:09] LABS: ANION GAP 5 MEQ/L (8-16); BLOOD UREA NITROGEN 26 MG/DL (7-18); CALCIUM LEVEL 8.2 MG/DL (8.8-10.2); CARBON DIOXIDE LEVEL 34 MEQ/L (21-32); CHLORIDE LEVEL 103 MEQ/L (98-107); CREATININE FOR GFR 0.74 MG/DL (0.55-1.30); GLOMERULAR FILTRATION RATE > 60.0 (>32); GLUCOSE, FASTING 96 MG/DL (70-100); POTASSIUM SERUM 3.9 MEQ/L (3.5-5.1); SODIUM LEVEL 142 MEQ/L (136-145)
== END ==
LOC: SKLAB5 07:51
DX: D64.9 Anemia, unspecified (principal)

== ENCOUNTER → 2017-11-03 | Outpatient (REF) ==
[2017-11-03 09:13] LABS: HEMATOCRIT 29.6 % (36.0-47.0); HEMOGLOBIN 8.9 g/dl (12.0-15.5); MEAN CORPUSCULAR HEMOGLOBIN 26.9 pg (27.0-33.0); MEAN CORPUSCULAR HGB CONC 30.1 g/dl (32.0-36.5); MEAN CORPUSCULAR VOLUME 89.4 fl (80.0-96.0); PLATELET COUNT, AUTOMATED 339 10^3/uL (150-450); RED BLOOD COUNT 3.31 10^6/uL (4.00-5.40); RED CELL DISTRIBUTION WIDTH 15.6 % (11.5-14.5); WHITE BLOOD COUNT 6.1 10^3/uL (4.0-10.0)
[2017-11-03 09:36] LABS: ANION GAP 7 MEQ/L (8-16); BLOOD UREA NITROGEN 34 MG/DL (7-18); CALCIUM LEVEL 8.6 MG/DL (8.8-10.2); CARBON DIOXIDE LEVEL 32 MEQ/L (21-32); CHLORIDE LEVEL 101 MEQ/L (98-107); CREATININE FOR GFR 0.97 MG/DL (0.55-1.30); GLOMERULAR FILTRATION RATE 58.4 (>32); GLUCOSE, FASTING 164 MG/DL (70-100); POTASSIUM SERUM 4.1 MEQ/L (3.5-5.1); SODIUM LEVEL 140 MEQ/L (136-145)
== END ==
LOC: SKLAB5 14:27
DX: N18.9 Chronic kidney disease, unspecified (principal)

== ENCOUNTER → 2017-11-10 | Outpatient (REF) ==
[2017-11-10 09:22] LABS: HEMATOCRIT 34.7 % (36.0-47.0); HEMOGLOBIN 10.2 g/dl (12.0-15.5); MEAN CORPUSCULAR HGB CONC 29.4 g/dl (32.0-36.5); MEAN CORPUSCULAR VOLUME 88.5 fl (80.0-96.0); PLATELET COUNT, AUTOMATED 371 10^3/uL (150-450); RED BLOOD COUNT 3.92 10^6/uL (4.00-5.40); RED CELL DISTRIBUTION WIDTH 16.1 % (11.5-14.5); WHITE BLOOD COUNT 6.3 10^3/uL (4.0-10.0)
[2017-11-10 09:32] LABS: ANION GAP 6 MEQ/L (8-16); BLOOD UREA NITROGEN 31 MG/DL (7-18); CALCIUM LEVEL 8.6 MG/DL (8.8-10.2); CARBON DIOXIDE LEVEL 36 MEQ/L (21-32); CHLORIDE LEVEL 99 MEQ/L (98-107); CREATININE FOR GFR 0.86 MG/DL (0.55-1.30); GLOMERULAR FILTRATION RATE > 60.0 (>32); GLUCOSE, FASTING 87 MG/DL (70-100); POTASSIUM SERUM 4.3 MEQ/L (3.5-5.1); SODIUM LEVEL 141 MEQ/L (136-145)
== END ==
LOC: SKLAB5 08:06
DX: D64.9 Anemia, unspecified (principal); R60.9 Edema, unspecified

== ENCOUNTER → 2017-11-18 | Outpatient (REF) | payer MEDICARE, MEDICAID ==
[2017-11-18 08:54] LABS: HEMATOCRIT 34.4 % (36.0-47.0); HEMOGLOBIN 10.3 g/dl (12.0-15.5); MEAN CORPUSCULAR HEMOGLOBIN 26.2 pg (27.0-33.0); MEAN CORPUSCULAR HGB CONC 29.9 g/dl (32.0-36.5); MEAN CORPUSCULAR VOLUME 87.5 fl (80.0-96.0); PLATELET COUNT, AUTOMATED 371 10^3/uL (150-450); RED BLOOD COUNT 3.93 10^6/uL (4.00-5.40); RED CELL DISTRIBUTION WIDTH 15.9 % (11.5-14.5); WHITE BLOOD COUNT 6.1 10^3/uL (4.0-10.0)
[2017-11-18 09:09] LABS: ANION GAP 6 MEQ/L (8-16); BLOOD UREA NITROGEN 23 MG/DL (7-18); CALCIUM LEVEL 8.4 MG/DL (8.8-10.2); CARBON DIOXIDE LEVEL 34 MEQ/L (21-32); CHLORIDE LEVEL 96 MEQ/L (98-107); CREATININE FOR GFR 0.77 MG/DL (0.55-1.30); GLOMERULAR FILTRATION RATE > 60.0 (>32); GLUCOSE, FASTING 116 MG/DL (70-100); SODIUM LEVEL 136 MEQ/L (136-145)
== END ==
LOC: SKLAB5 09:58
DX: D64.9 Anemia, unspecified (principal); R60.9 Edema, unspecified
CPT/HCPCS: 36415

== ENCOUNTER → 2017-11-24 | Outpatient (REF) | payer MEDICARE, MEDICAID ==
[2017-11-24 08:33] LABS: HEMATOCRIT 33.5 % (36.0-47.0); MEAN CORPUSCULAR HGB CONC 29.9 g/dl (32.0-36.5); MEAN CORPUSCULAR VOLUME 87.2 fl (80.0-96.0); PLATELET COUNT, AUTOMATED 349 10^3/uL (150-450); RED BLOOD COUNT 3.84 10^6/uL (4.00-5.40); RED CELL DISTRIBUTION WIDTH 16.1 % (11.5-14.5)
[2017-11-24 08:52] LABS: ANION GAP 5 MEQ/L (8-16); BLOOD UREA NITROGEN 26 MG/DL (7-18); CALCIUM LEVEL 8.6 MG/DL (8.8-10.2); CARBON DIOXIDE LEVEL 34 MEQ/L (21-32); CHLORIDE LEVEL 99 MEQ/L (98-107); CREATININE FOR GFR 0.77 MG/DL (0.55-1.30); GLOMERULAR FILTRATION RATE > 60.0 (>32); GLUCOSE, FASTING 88 MG/DL (70-100); POTASSIUM SERUM 4.1 MEQ/L (3.5-5.1); SODIUM LEVEL 138 MEQ/L (136-145)
== END ==
LOC: SKLAB5 07:33
DX: D64.9 Anemia, unspecified (principal); R60.9 Edema, unspecified
CPT/HCPCS: 36415

== ENCOUNTER → 2017-12-01 | Outpatient (REF) | payer MEDICARE, MEDICAID ==
[2017-12-01 09:13] LABS: ANION GAP 7 MEQ/L (8-16); BLOOD UREA NITROGEN 28 MG/DL (7-18); CALCIUM LEVEL 8.5 MG/DL (8.8-10.2); CARBON DIOXIDE LEVEL 30 MEQ/L (21-32); CHLORIDE LEVEL 98 MEQ/L (98-107); CREATININE FOR GFR 0.73 MG/DL (0.55-1.30); GLOMERULAR FILTRATION RATE > 60.0 (>32); GLUCOSE, FASTING 141 MG/DL (70-100); SODIUM LEVEL 135 MEQ/L (136-145)
== END ==
LOC: SKLAB5 12:12
DX: D64.9 Anemia, unspecified (principal); R60.9 Edema, unspecified
CPT/HCPCS: 36415

== ENCOUNTER → 2017-12-08 | Outpatient (REF) | payer MEDICARE, MEDICAID ==
[2017-12-08 08:22] LABS: HEMATOCRIT 36.4 % (36.0-47.0); HEMOGLOBIN 11.1 g/dl (12.0-15.5); MEAN CORPUSCULAR HEMOGLOBIN 26.2 pg (27.0-33.0); MEAN CORPUSCULAR HGB CONC 30.5 g/dl (32.0-36.5); MEAN CORPUSCULAR VOLUME 85.8 fl (80.0-96.0); PLATELET COUNT, AUTOMATED 261 10^3/uL (150-450); RED BLOOD COUNT 4.24 10^6/uL (4.00-5.40); WHITE BLOOD COUNT 4.8 10^3/uL (4.0-10.0)
[2017-12-08 08:40] LABS: ANION GAP 4 MEQ/L (8-16); BLOOD UREA NITROGEN 27 MG/DL (7-18); CALCIUM LEVEL 8.9 MG/DL (8.8-10.2); CARBON DIOXIDE LEVEL 35 MEQ/L (21-32); CHLORIDE LEVEL 96 MEQ/L (98-107); CREATININE FOR GFR 0.86 MG/DL (0.55-1.30); GLOMERULAR FILTRATION RATE > 60.0 (>32); GLUCOSE, FASTING 134 MG/DL (70-100); POTASSIUM SERUM 3.9 MEQ/L (3.5-5.1); SODIUM LEVEL 135 MEQ/L (136-145)
== END ==
LOC: SKLAB5 08:08
DX: D64.9 Anemia, unspecified (principal); R60.9 Edema, unspecified
CPT/HCPCS: 36415

== ENCOUNTER → 2017-12-15 | Outpatient (REF) | payer MEDICARE, MEDICAID ==
[2017-12-15 08:29] LABS: HEMATOCRIT 36.9 % (36.0-47.0); HEMOGLOBIN 11.3 g/dl (12.0-15.5); MEAN CORPUSCULAR HEMOGLOBIN 26.2 pg (27.0-33.0); MEAN CORPUSCULAR HGB CONC 30.6 g/dl (32.0-36.5); MEAN CORPUSCULAR VOLUME 85.6 fl (80.0-96.0); PLATELET COUNT, AUTOMATED 244 10^3/uL (150-450); RED BLOOD COUNT 4.31 10^6/uL (4.00-5.40); RED CELL DISTRIBUTION WIDTH 17.4 % (11.5-14.5)
[2017-12-15 08:52] LABS: ANION GAP 7 MEQ/L (8-16); BLOOD UREA NITROGEN 27 MG/DL (7-18); CALCIUM LEVEL 8.5 MG/DL (8.8-10.2); CARBON DIOXIDE LEVEL 33 MEQ/L (21-32); CHLORIDE LEVEL 99 MEQ/L (98-107); CREATININE FOR GFR 0.75 MG/DL (0.55-1.30); GLOMERULAR FILTRATION RATE > 60.0 (>32); GLUCOSE, FASTING 80 MG/DL (70-100); POTASSIUM SERUM 3.9 MEQ/L (3.5-5.1); SODIUM LEVEL 139 MEQ/L (136-145)
== END ==
LOC: SKLAB5 07:35
DX: D64.9 Anemia, unspecified (principal); R60.9 Edema, unspecified
CPT/HCPCS: 36415

== ENCOUNTER → 2017-12-22 | Outpatient (REF) | payer MEDICARE, MEDICAID ==
[2017-12-22 08:38] LABS: HEMATOCRIT 37.9 % (36.0-47.0); HEMOGLOBIN 11.6 g/dl (12.0-15.5); MEAN CORPUSCULAR HEMOGLOBIN 26.2 pg (27.0-33.0); MEAN CORPUSCULAR HGB CONC 30.6 g/dl (32.0-36.5); MEAN CORPUSCULAR VOLUME 85.7 fl (80.0-96.0); PLATELET COUNT, AUTOMATED 233 10^3/uL (150-450); RED BLOOD COUNT 4.42 10^6/uL (4.00-5.40); RED CELL DISTRIBUTION WIDTH 17.6 % (11.5-14.5); WHITE BLOOD COUNT 4.1 10^3/uL (4.0-10.0)
[2017-12-22 09:04] LABS: ANION GAP 7 MEQ/L (8-16); BLOOD UREA NITROGEN 28 MG/DL (7-18); CALCIUM LEVEL 8.6 MG/DL (8.8-10.2); CARBON DIOXIDE LEVEL 33 MEQ/L (21-32); CHLORIDE LEVEL 99 MEQ/L (98-107); CREATININE FOR GFR 0.69 MG/DL (0.55-1.30); GLOMERULAR FILTRATION RATE > 60.0 (>32); GLUCOSE, FASTING 83 MG/DL (70-100); IRON (FE) 28 UG/DL (50-170); POTASSIUM SERUM 4.1 MEQ/L (3.5-5.1); SODIUM LEVEL 139 MEQ/L (136-145)
== END ==
LOC: SKLAB5 07:31
DX: D64.9 Anemia, unspecified (principal); R60.9 Edema, unspecified
CPT/HCPCS: 83540

== ENCOUNTER → 2017-12-29 | Outpatient (REF) | payer MEDICARE, MEDICAID | LOC: SKLAB5 09:06 | DX: D64.9 Anemia, unspecified (principal); R60.9 Edema, unspecified ==

== ENCOUNTER → 2018-01-05 | Outpatient (REF) | payer MEDICARE, MEDICAID ==
[2018-01-05 09:33] LABS: HEMATOCRIT 40.3 % (36.0-47.0); HEMOGLOBIN 12.2 g/dl (12.0-15.5); MEAN CORPUSCULAR HEMOGLOBIN 26.4 pg (27.0-33.0); MEAN CORPUSCULAR HGB CONC 30.3 g/dl (32.0-36.5); MEAN CORPUSCULAR VOLUME 87.2 fl (80.0-96.0); PLATELET COUNT, AUTOMATED 217 10^3/uL (150-450); RED BLOOD COUNT 4.62 10^6/uL (4.00-5.40); RED CELL DISTRIBUTION WIDTH 17.9 % (11.5-14.5); WHITE BLOOD COUNT 4.6 10^3/uL (4.0-10.0)
[2018-01-05 10:10] LABS: ANION GAP 5 MEQ/L (8-16); BLOOD UREA NITROGEN 29 MG/DL (7-18); CALCIUM LEVEL 8.8 MG/DL (8.8-10.2); CARBON DIOXIDE LEVEL 36 MEQ/L (21-32); CHLORIDE LEVEL 98 MEQ/L (98-107); CREATININE FOR GFR 0.76 MG/DL (0.55-1.30); GLOMERULAR FILTRATION RATE > 60.0 (>32); GLUCOSE, FASTING 98 MG/DL (70-100); POTASSIUM SERUM 3.7 MEQ/L (3.5-5.1); SODIUM LEVEL 139 MEQ/L (136-145)
== END ==
LOC: SKLAB5 10:11
DX: D64.9 Anemia, unspecified (principal); R60.9 Edema, unspecified
CPT/HCPCS: 80048

== ENCOUNTER → 2018-01-19 | Outpatient (REF) | payer MEDICARE, MEDICAID ==
[2018-01-19 07:41] LABS: HEMATOCRIT 40.6 % (36.0-47.0); HEMOGLOBIN 12.7 g/dl (12.0-15.5); MEAN CORPUSCULAR HGB CONC 31.3 g/dl (32.0-36.5); MEAN CORPUSCULAR VOLUME 86.4 fl (80.0-96.0); PLATELET COUNT, AUTOMATED 180 10^3/uL (150-450); RED CELL DISTRIBUTION WIDTH 17.9 % (11.5-14.5); WHITE BLOOD COUNT 4.3 10^3/uL (4.0-10.0)
[2018-01-19 08:08] LABS: ANION GAP 6 MEQ/L (8-16); BLOOD UREA NITROGEN 35 MG/DL (7-18); CALCIUM LEVEL 8.5 MG/DL (8.8-10.2); CARBON DIOXIDE LEVEL 33 MEQ/L (21-32); CHLORIDE LEVEL 101 MEQ/L (98-107); GLOMERULAR FILTRATION RATE > 60.0 (>32); GLUCOSE, FASTING 78 MG/DL (70-100); POTASSIUM SERUM 3.8 MEQ/L (3.5-5.1); SODIUM LEVEL 140 MEQ/L (136-145)
== END ==
LOC: SKLAB5 08:29
DX: D64.9 Anemia, unspecified (principal); R60.9 Edema, unspecified
CPT/HCPCS: 36415

== ENCOUNTER → 2018-03-23 | Outpatient (REF) | payer MEDICARE, MEDICAID ==
[2018-03-23 09:55] LABS: EOS # 0.2 10^3/uL (0.0-0.50); EOS % 4.9 % (0.0-3.0); HEMATOCRIT 38.9 % (36.0-47.0); HEMOGLOBIN 12.6 g/dl (12.0-15.5); IMMATURE GRANULOCYTE % 0.2 % (0-3.0); LYMPH # 1.2 10^3/uL (1.5-4.5); MEAN CORPUSCULAR HEMOGLOBIN 28.3 pg (27.0-33.0); MEAN CORPUSCULAR HGB CONC 32.4 g/dl (32.0-36.5); MEAN CORPUSCULAR VOLUME 87.4 fl (80.0-96.0); MONO # 0.4 10^3/uL (0.0-0.8); MONO % 9.3 % (0.0-5.0); NEUTROPHILS # 2.3 10^3/uL (1.8-7.7); NEUTROPHILS % 55.6 % (36.0-66.0); PLATELET COUNT, AUTOMATED 197 10^3/uL (150-450); RED BLOOD COUNT 4.45 10^6/uL (4.00-5.40); RED CELL DISTRIBUTION WIDTH 17.3 % (11.5-14.5); WHITE BLOOD COUNT 4.1 10^3/uL (4.0-10.0)
[2018-03-23 10:24] LABS: ALBUMIN 3.9 GM/DL (3.2-5.2); ALKALINE PHOSPHATASE 150 U/L (45-117); ALT/SGPT 28 U/L (12-78); ANION GAP 8 MEQ/L (8-16); AST/SGOT 19 U/L (7-37); BILIRUBIN,TOTAL 0.5 MG/DL (0.2-1.0); BLOOD UREA NITROGEN 33 MG/DL (7-18); CARBON DIOXIDE LEVEL 33 MEQ/L (21-32); CHLORIDE LEVEL 98 MEQ/L (98-107); CREATININE FOR GFR 0.86 MG/DL (0.55-1.30); FERRITIN 24 NG/ML (8-252); GLOMERULAR FILTRATION RATE > 60.0 (>32); GLUCOSE, FASTING 128 MG/DL (70-100); IRON (FE) 50 UG/DL (50-170); POTASSIUM SERUM 3.8 MEQ/L (3.5-5.1); SODIUM LEVEL 139 MEQ/L (136-145); TOTAL IRON BINDING CAPACITY 417 UG/DL (250-450); TOTAL PROTEIN 6.9 GM/DL (6.4-8.2)
== END ==
LOC: SKLAB5 08:50
DX: D64.9 Anemia, unspecified (principal)
CPT/HCPCS: 83550

== ENCOUNTER → 2018-06-12 | Outpatient (REF) | payer MEDICARE, MEDICAID ==
[~2018-06-12] MED LIST changes: +ACET65SU PR; +AQUA100OI TOP; +ASPI81CH PO; +ASPI81TAEC PO; +BENZ-18 PO; +DULC10SU2 PR; +ENEMENE16 PR; +FERR1TAB8 PO; +FURO40TA2 PO; +GUAI5EL PO; +LASI20TA PO; +MILK12002 PO; +SENN8.6T7 PO; +SENO8.6T10 PO; +TYLE325T5 PO; +VITMTA PO; +XARE15TA PO; +XARE1TAB PO
[2018-06-12 14:56] LABS: ALBUMIN 3.5 GM/DL (3.2-5.2); ALT/SGPT 30 U/L (12-78); BILIRUBIN,TOTAL 0.4 MG/DL (0.2-1.0); BLOOD UREA NITROGEN 38 MG/DL (7-18); CALCIUM LEVEL 8.3 MG/DL (8.8-10.2); CARBON DIOXIDE LEVEL 27 MEQ/L (21-32); CHLORIDE LEVEL 101 MEQ/L (98-107); CREATININE FOR GFR 0.92 MG/DL (0.55-1.30); GLOMERULAR FILTRATION RATE > 60.0 (>32); GLUCOSE, FASTING 139 MG/DL (70-100); SODIUM LEVEL 139 MEQ/L (136-145); TOTAL PROTEIN 6.7 GM/DL (6.4-8.2)
== END ==
LOC: SKLAB5 12:37
PROVIDERS: ATTEND Family Medicine
DX: R52 Pain, unspecified (principal)

== ENCOUNTER → 2018-06-25 | Outpatient (REF) | payer MEDICARE, MEDICAID ==
[2018-06-25 08:20] LABS: EOS # 0.2 10^3/uL (0.0-0.50); HEMATOCRIT 41.9 % (36.0-47.0); HEMOGLOBIN 13.8 g/dl (12.0-15.5); LYMPH # 1.2 10^3/uL (1.5-4.5); LYMPH % 28.4 % (24.0-44.0); MEAN CORPUSCULAR HEMOGLOBIN 30.9 pg (27.0-33.0); MEAN CORPUSCULAR HGB CONC 32.9 g/dl (32.0-36.5); MEAN CORPUSCULAR VOLUME 93.9 fl (80.0-96.0); MONO # 0.4 10^3/uL (0.0-0.8); MONO % 10.1 % (0.0-5.0); NEUTROPHILS # 2.3 10^3/uL (1.8-7.7); NEUTROPHILS % 55.3 % (36.0-66.0); RED BLOOD COUNT 4.46 10^6/uL (4.00-5.40); WHITE BLOOD COUNT 4.2 10^3/uL (4.0-10.0)
[2018-06-25 08:55] LABS: BLOOD UREA NITROGEN 40 MG/DL (7-18); CALCIUM LEVEL 8.6 MG/DL (8.8-10.2); CARBON DIOXIDE LEVEL 25 MEQ/L (21-32); CHLORIDE LEVEL 102 MEQ/L (98-107); CREATININE FOR GFR 0.79 MG/DL (0.55-1.30); GLOMERULAR FILTRATION RATE > 60.0 (>32); GLUCOSE, FASTING 82 MG/DL (70-100); POTASSIUM SERUM 4.6 MEQ/L (3.5-5.1); SODIUM LEVEL 140 MEQ/L (136-145)
== END ==
LOC: SKLAB5 07:59
PROVIDERS: ATTEND Family Medicine
DX: D64.9 Anemia, unspecified (principal); N18.9 Chronic kidney disease, unspecified

== ENCOUNTER 2018-08-28 16:59 | Inpatient (IN) | payer MEDICARE, MEDICAID ==
[~2018-08-28] VITALS: Ht 165.1 cm; Wt 71.6 kg
[~2018-08-28 16:59] MED LIST changes: -GOLDPOW2 TOP; -METO25TA4 PO
[2018-08-28] MEDS ORDERED: SENO8.6T10 PO (17:40)
[2018-08-28] MEDS ORDERED: METO25TA4 PO (17:45)
[2018-08-28] MEDS ORDERED: GOLDPOW2 TOP (17:45)
--- NOTE | 2018-08-28 18:21 | REP ---
CT of the abdomen and pelvis without IV or bowel contrast: Comparison is 07/16/2017. There is an marked distension of the entire small bowel almost to the cecum with multiple air-fluid levels compatible with small bowel obstruction as a distinct interval change. There is no pneumoperitoneum. There is no colonic distension. There is a huge soft tissue pelvic mass measuring 14 by 13 cm, not significantly changed from the prior study, likely a large uterine leiomyoma versus uterine adenoma. There is no pneumoperitoneum or ascites. The stomach is massively distended. There is a hiatal hernia that is also massively distended. There is bilateral lower lobe atelectasis in the visualized lung bloom. The unenhanced hepatic parenchyma, gallbladder, pancreas and spleen are not optimally demonstrated but grossly unremarkable. The adrenals, kidneys and abdominal aorta are unremarkable. The colonic bowel loops in the pelvis are unremarkable. The bladder is unremarkable. Impression: Markedly dilated entire small bowel almost to the cecum with multiple air-fluid levels compatible with small bowel obstruction. There is no colonic distension. No pneumoperitoneum or ascites. Massive pelvic soft tissue mass, unchanged from the prior study, uterine leiomyoma versus ovarian adenoma. Electronically Signed by Alan Smith MD 08/28/2018 06:12 P
[2018-08-28] MEDS ORDERED: NS 1,000 ML IV ONE (20:00)
[2018-08-28] MEDS ORDERED: PIPERACILLIN/TAZOBACTAM SOD 3.375 GM in D5W MINI-BAG PLUS 50 ML IV ONE (20:00)
[2018-08-28] MEDS ORDERED: ONDANSETRON 4MG/2ML VIAL (J2405) IV PRN (21:00)
[2018-08-28] MEDS ORDERED: DEXTROSE 50% 50 ML SYRINGE IV PRN (21:00)
[2018-08-28] MEDS ORDERED: GLUCOSE 4 GM CHEW TABLET PO PRN (21:00)
[2018-08-28] MEDS ORDERED: GLUCAGON FOR INJ 1 MG VIAL (J1610) SC PRN (21:00)
[2018-08-28] MEDS: NS 1,000 ML IV SCH (21:38)
[2018-08-28] MEDS: PANTOPRAZOLE 40MG INJ (PROTONIX) (C9113) IV SCH (21:49)
--- NOTE | 2018-08-28 22:19 | HPE ---
DATE OF ADMISSION: 08/28/2018 ATTENDING PHYSICIAN: Dr. Osman CHIEF COMPLAINT: Nausea, vomiting, and abdominal pain. HISTORY OF PRESENT ILLNESS: The patient is an 83-year-old white female with several chronic medical conditions, listed below, came to the emergency room for evaluation of above complaints. History is provided by herself, but she is a poor historian. Also, information is provided by [facility] nursing staff. Per nursing staff from [facility], in the last 2 days the patient complained of some stomachache but could not provide details. Also, she threw up several times. Dr. Osman was notified and ordered blood tests, as well as abdominal x-ray, which turned out that she may have a possible small bowel obstruction, so the patient was sent over to the emergency room for further evaluation. In the emergency room, she had an abdominal CT, which demonstrated again small bowel obstruction. Since the patient is refusing surgical management, medicine service was called for admission. Meanwhile, Dr. Holliday was consulted. REVIEW OF SYSTEMS: Not available due to confusion. PAST MEDICAL HISTORY: 1. Type 2 diabetes. 2. Hypertension. 3. Diastolic congestive heart failure (CHF). 4. Paroxysmal atrial fibrillation. 5. 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 PAST SURGICAL HISTORY: 1. Right ankle repair with removal of hardware in the past. SOCIAL HISTORY: No tobacco use, no alcohol abuse, no illicit drug use. She is a resident at [facility]. She is DO NOT RESUSCITATE, DO NOT INTUBATE. FAMILY HISTORY: Noncontributory. ALLERGIES: METFORMIN. MEDICATIONS: - Tylenol as needed - Lasix 60 mg by mouth twice a day - metoprolol 25 mg twice a day - multivitamin one tablet by mouth daily - aspirin 81 mg by mouth daily - multiple stool softeners PHYSICAL EXAMINATION: VITAL SIGNS: Temperature 97, heart rate 109, respiratory rate 28, blood pressure 140/67, oxygen saturation 95% on 3 liters oxygen. GENERAL: She is awake, alert, oriented times three. She is not in acute distress. HEENT: Atraumatic. Pupils are equal, round and reactive to light. No jaundice. Extraocular muscles intact. Ears, nose, and throat normal. Mouth: Mucosa dry. NECK: No jugular venous distention (JVD). LUNGS: Clear. No wheezing. No crackles. HEART: S1, S2. Regular. Mild tachycardia. No murmurs. ABDOMEN: Distended. I could not hear any bowel sounds. Diffuse tenderness. LOWER EXTREMITIES: No edema in bilateral lower extremities. NEUROLOGIC: Nonfocal. SKIN: No rash. PSYCHIATRIC: No acute psychosis. DIAGNOSTICS/LABORATORIES: Complete blood count (CBC) and differential showed WBC 18, hemoglobin and hematocrit 13.3/40, platelets 310. Sodium 137, potassium 4.8, chloride 94, bicarbonate 34, BUN 68, creatinine 1.89, glucose 193. Abdominal x-ray, as well as CT of the abdomen reviewed. IMPRESSION: 1. Small bowel obstruction. 2. Acute renal injury and dehydration. 3. Paroxysmal atrial fibrillation, currently sinus tachycardia. 4. Type 2 diabetes. 5. Hypertension. 6. Congestive heart failure (CHF). 7. Chronic pelvic mass. PLAN: The patient will be admitted to the medical/surgical floor. We will treat her conservatively, including nothing by mouth and IV hydration. Meanwhile, we will start her on IV Zosyn. Nasogastric tube was attempted in the emergency room by emergency room staff twice but failed. Dr. Holliday will come to consult the patient. We will hold her oral medications. We will put her on heparin subcutaneously for deep vein thrombosis (DVT) prophylaxis.
[2018-08-28 23:16] VITALS: BP 131/89
[2018-08-29] MEDS: NS 1,000 ML IV SCH ×2 (05:18→16:11)
[2018-08-29] MEDS: PIPERACILLIN/TAZOBACTAM SOD 3.375 GM in D5W MINI-BAG PLUS 50 ML IV SCH ×3 (05:18→21:45)
[2018-08-29] MEDS: HEPARIN SOD (PORCINE) 5000 UNITS/ML VIAL SC SCH ×3 (05:19→21:45)
[2018-08-29 05:30] LABS: BASO % 0.1 % (0.0-1.0); EOS % 0.1 % (0.0-3.0); HEMATOCRIT 38.8 % (36.0-47.0); HEMOGLOBIN 12.9 g/dl (12.0-15.5); LYMPH # 0.6 10^3/uL (1.5-4.5); MEAN CORPUSCULAR HEMOGLOBIN 30.8 pg (27.0-33.0); MEAN CORPUSCULAR HGB CONC 33.2 g/dl (32.0-36.5); MEAN CORPUSCULAR VOLUME 92.6 fl (80.0-96.0); MONO # 0.8 10^3/uL (0.0-0.8); MONO % 6.7 % (0.0-5.0); NEUTROPHILS # 10.1 10^3/uL (1.8-7.7); NEUTROPHILS % 87.6 % (36.0-66.0); PLATELET COUNT, AUTOMATED 293 10^3/uL (150-450); RED BLOOD COUNT 4.19 10^6/uL (4.00-5.40); WHITE BLOOD COUNT 11.5 10^3/uL (4.0-10.0)
[2018-08-29 05:53] LABS: CALCIUM LEVEL 8.4 MG/DL (8.8-10.2); CREATININE FOR GFR 1.74 MG/DL (0.55-1.30); GLOMERULAR FILTRATION RATE 29.7 (>32); POTASSIUM SERUM 4.3 MEQ/L (3.5-5.1)
[2018-08-29 06:00] VITALS: BP 141/83
--- NOTE | 2018-08-29 08:08 | REP ---
Portable chest, 08:15 p.m., 08/28/2018, single AP semi upright view: Comparison is 10/09/2017. There is increased radiodensity in the left lower lobe suggestive of an infiltrate. There is effacement left costophrenic angle suggestive of a left pleural effusion. There is atelectasis above the right hemidiaphragm. Lung bloom otherwise clear. Cardiac size is enlarged, unchanged. Impression: Bibasilar infiltrates. Left pleural effusion. Cardiomegaly. Electronically Signed by Alan Smith MD 08/29/2018 08:00 A
[2018-08-29] MEDS: HumaLOG INSULIN (NovoLOG) PER UNIT SC SCH ×3 (08:12→17:30)
--- NOTE | 2018-08-29 09:20 | REP ---
Acute abdominal series three views including PA chest and supine upright abdomen: PA chest: There is a left pleural effusion. There is a large hiatal hernia containing an air-fluid level. There is atelectasis inferiorly in the right lung. Lung bloom otherwise clear. The patient is rotated and the head and chin superimposed the apex of the left lung. There is an air-fluid level in the gastric fundus. No free subdiaphragmatic air. Abdomen, supine upright views: The entire small bowel is dilated with multiple air-fluid levels compatible with small bowel obstruction. No colonic distension is identified. Electronically Signed by Alan Smith MD 08/29/2018 09:12 A
--- NOTE | 2018-08-29 09:30 | CR ---
DATE OF CONSULTATION: 08/29/2018 CHIEF COMPLAINT: Nausea, vomiting. HISTORY OF PRESENT ILLNESS: The patient is an 83-year-old female who was at the [facility], has developed some abdominal distension, nausea, vomiting and transferred to the emergency room here for further evaluation/treatment. On evaluation, she has evidence of small bowel obstruction. Unfortunately she has a huge soft-tissue pelvic mass which is 14 x 13 centimeters which is "not changed all that much from prior studies". However, when I look for the bowel going past this area, it is almost completely taking up the distance from the pubis up to the sacrum and is abutting the small bowel in the area of "the bowel obstruction". She has not had any fevers or chills. Had a CT scan a year ago which reveals a stable mass in the pelvis and it is felt to be present for many years. A 2013 study reveals this large midline mass. Pelvic mass of undetermined etiology. In any case, has presented with an elevated white count of 18,000 last night, this morning it is down to 11.5. She refused an NG tube and refused surgical intervention. I am asked to see her for additional recommendations concerning her bowel obstruction issue. PAST MEDICAL HISTORY: Significant for: History of diabetes mellitus. Hypertension. Congestive heart failure. Atrial fibrillation. Right ankle repair with removal of hardware. MEDICATIONS INCLUDE: - Tylenol - Lasix - metoprolol - multivitamin - aspirin - stool softeners PHYSICAL EXAM: Reveals an 83-year-old female who looks stated age. HEENT is unremarkable although she has a significant kyphosis. Her lungs reveal some rhonchi bilaterally. She is alert and able to state that she does not want the NG tube nor operative intervention. Abdomen is distended, tympanitic without guarding, without rebound. However, she has some mild discomfort with deep palpation. She has an umbilical hernia but this is reducible and nontender. Extremities: Warm, well-perfused. IMPRESSION AND PLAN: The patient has a small bowel obstruction. Although she has had this mass for a very long time, she has had previous admissions with similar findings from a ileus standpoint. However not as severe as this as I look back on her CT scans. Mostly this was for anemia issues. In any case, I do feel that she has a small-bowel obstruction and unfortunately, just with this mass, it makes the most sense that this is probably causing some torsion of the bowel or at least some is contributing to the small bowel obstruction as the most likely etiology. No other intra-abdominal abscess or infection is present at this time and it seems less likely an ileus. She has decompressed descending colon and rectum. I anticipate this has been going on for awhile now, more than just the last day or so given how decompressed her colon is and how decreased in caliber this colon is. Unfortunately at this time, options for her given that she is not a great operative candidate would be NG tube decompression which she refuses, operative intervention which she does refuse although I wonder if there is some other [employer] options for her such as embolizing the uterus to see if it shrinks the leiomyoma. Given that it has been present for many years, it seems unlikely without metastases present intra-abdominally that this is malignant and thus is more likely benign. This is so large it would not be a vaginal type of procedure and would require an open laparotomy for removal of the uterus and I anticipate if we needed to perform a lysis of adhesions, it would be most reasonable to perform a hysterectomy at that time. Once again, from a surgical standpoint, we are at a loss given her desire not to have operative intervention and NG tube decompression and I would recommend a discussion with family and patient potential options for her and the current situation which if persistent bowel obstruction is present, she will probably end up with an aspiration pneumonia if she has not had developed one already with that elevated white count and bowel perforation.
--- NOTE | 2018-08-29 12:20 | CR ---
DATE OF CONSULTATION: 08/29/2018 CONSULTING SERVICE: Gynecology. HISTORY: An 83-year-old female with multiple medical problems, hospital day #2 now, admitted with two days of diffuse abdominal aches and multiple episodes of vomiting. She was known to have a distended abdomen at which time Dr. Osman ordered multiple tests and abdominal x-ray. Abdominal x-ray indicated possible small bowel obstruction. The patient was then brought to the emergency room for further evaluation. MEDICAL HISTORY: 1. Type 2 diabetes. 2. Hypertension. 3. Congestive heart failure. 4. Paroxysmal atrial fibrillation. 5. History of large uterine fibroids. SURGICAL HISTORY: Right ankle repair in the remote past. ALLERGIES: METFORMIN. SOCIAL HISTORY: Patient is a resident of [facility]. She denies cigarettes, alcohol, or drug use. She is currently a DO NOT RESUSCITATE/DO NOT INTUBATE (DNR/DNI) status. FAMILY HISTORY: Noncontributory. PHYSICAL EXAMINATION: Blood pressure 140/67, temperature 97, oxygen saturation 95% on 3 liters, heart rate 109, respiratory rate 28. General: She does not appear to be in acute discomfort or distress. She is alert and oriented. Head and Neck Exam: Atraumatic, normocephalic. Lungs are clear to auscultation. Heart is regular rhythm with mild tachycardia. Abdomen is markedly distended, diminished bowel sounds throughout and mildly tender to palpation throughout. Pelvic exam is deferred. Extremities show no edema. CT scan shows a 13 x 14 cm large mass completely filling the pelvis. There is distended small bowel on CT scan right down to the level of this large pelvic mass. The colon appears decompressed. ASSESSMENT: An 83-year-old with multiple medical problems, admitted with probable small bowel obstruction; etiology of obstruction is most likely pelvic adhesions to large, chronically inflamed uterine fibroid. There does not appear to be any other reasonable etiology for the obstruction. PLAN: Patient is admitted to medicine. She is currently refusing nasogastric tube placement. Optimally, laparotomy with removal of adhesions and subsequent hysterectomy would be ideal; however, the patient is currently refusing surgery. Even if she accepted surgery, she is an extremely high risk surgical candidate. Possible uterine artery embolization would potentially shrink the fibroid and diminish pressure on the small bowel leading to obstruction. However, there is no guarantee that uterine artery embolization would be successful, and certainly there are significant risks with that procedure as well. If hysterectomy is entertained, would strongly consider supracervical hysterectomy to decrease surgical time and blood loss. I think discussion with the patient and family members to see how aggressive they want to be in treating this problem should be the next step. In the meantime, supportive treatment as is currently being done is recommended. CORINNED
[2018-08-29 14:00] VITALS: BP 149/94
[2018-08-29] MEDS: PANTOPRAZOLE 40MG INJ (PROTONIX) (C9113) IV SCH (21:44)
[2018-08-29 22:00] VITALS: BP 136/78
[2018-08-30] MEDS: NS 1,000 ML IV SCH (03:25)
[2018-08-30 04:31] VITALS: BP 143/65
[2018-08-30] MEDS ORDERED: MORPHINE 4 MG/ML 1ML VIAL/SYRINGE (J2270) IV ONE (04:45)
[2018-08-30] MEDS: HEPARIN SOD (PORCINE) 5000 UNITS/ML VIAL SC SCH ×3 (05:23→22:36)
[2018-08-30] MEDS: PIPERACILLIN/TAZOBACTAM SOD 3.375 GM in D5W MINI-BAG PLUS 50 ML IV SCH ×3 (05:23→22:36)
[2018-08-30 06:00] VITALS: BP 129/89
[2018-08-30] MEDS: HumaLOG INSULIN (NovoLOG) PER UNIT SC SCH ×3 (07:30→17:04)
--- NOTE | 2018-08-30 11:53 | IPN ---
DATE: 08/29/2018 The patient is [facility]. She was admitted yesterday with a small bowel obstruction. She had abdominal distension, nausea and vomiting. Labs done at [facility], where she resides, indicated flat plate consistent with a small bowel obstruction, elevated white count of 18,000 and elevated BUN and creatinine. Sent to the emergency department and admitted. General surgery has been consulted. In the emergency department, apparently they were not successful about getting a nasogastric (NG) tube in and she has refused further attempts. At this time, she has some mild abdominal discomfort, not doing any vomiting, is mildly nauseous, not short of breath or having any chest pains. No edema. Currently she is getting some insulin coverage, subcu heparin, Zosyn, pantoprazole, IV fluids. She is nothing by mouth. On examination, her temperature is 97.2, pulse is 104 and regular, blood pressure 141/83, respirations 18, O2 saturation on 2 liters is 96%. She is alert, cooperative, not in any distress, although she seems mildly nauseated. She really appears her usual self for the most part. Her eyes are clear. Speech is clear. No neck masses, tenderness or adenopathy. No carotid bruits. Lungs are clear. Heart: Has a regular rhythm without any murmur, click or gallop. Abdomen is soft, protuberant, not particularly tender. Bowel sounds are hypoactive. There is no edema. She has a lot of stasis changes and scaling of skin of her lower extremities. Labs today show a BUN of 73, creatinine 1.74, glucose 141, sodium 138, potassium 4.3, chloride is 98, magnesium level is elevated at 2.5, calcium is low at 8.4. Her abdominal x-ray today shows left pleural effusion and a large hiatal hernia containing an air fluid level, atelectasis in the right lung. Lung bloom otherwise clear. Entire small bowel is dilated with multiple air fluid levels. No colonic distension identified. Her CT of her abdomen done yesterday when she was admitted showed distension of the entire small bowel, multiple air fluid levels. There is suggestion that her soft tissue pelvic mass, felt to be a large fibroid, was unchanged but may be contributing to the obstruction. ASSESSMENT: 1. Small bowel obstruction. 2. Hypertension. 3. Diabetes. 4. Paroxysmal atrial fibrillation. 5. Chronic pelvic mass. PLAN: At this time, the patient adamantly refuses consideration of reinsertion of a nasogastric tube. She is still not interested in having surgery. I have indicated to her that if her bowel obstruction does not resolve quickly that the only options that we have are hospice or perhaps a procedure to embolize her uterine arteries that might reduce her uterine size. However, how long that will take to occur is another question, and no guarantee that that is going to occur. I have also indicated to her that there is a risk of vomiting with aspiration and a risk of bowel perforation given her current findings. If she continued to refuse any surgical intervention, really hospice would need to be considered. I discussed the patient with Dr. Holliday and Dr. Denney today. TU
[2018-08-30] MEDS: D5W/0.45% SODIUM CHLORIDE 1,000 ML IV SCH (13:36)
[2018-08-30] MEDS: MORPHINE 4 MG/ML 1ML VIAL/SYRINGE (J2270) IV PRN ×3 (13:41→22:42)
[2018-08-30 14:00] VITALS: BP 123/61
[2018-08-30 22:00] VITALS: BP 124/59
[2018-08-30] MEDS: PANTOPRAZOLE 40MG INJ (PROTONIX) (C9113) IV SCH (22:36)
[2018-08-31] MEDS: D5W/0.45% SODIUM CHLORIDE 1,000 ML IV SCH ×2 (00:54→11:20)
[2018-08-31] MEDS: MORPHINE 4 MG/ML 1ML VIAL/SYRINGE (J2270) IV PRN ×3 (02:31→11:17)
[2018-08-31 06:00] VITALS: BP 105/55
[2018-08-31 06:14] LABS: HEMATOCRIT 45.6 % (36.0-47.0); HEMOGLOBIN 13.6 g/dl (12.0-15.5); MEAN CORPUSCULAR HEMOGLOBIN 30.3 pg (27.0-33.0); MEAN CORPUSCULAR HGB CONC 29.8 g/dl (32.0-36.5); MEAN CORPUSCULAR VOLUME 101.6 fl (80.0-96.0); PLATELET COUNT, AUTOMATED 286 10^3/uL (150-450); RED BLOOD COUNT 4.49 10^6/uL (4.00-5.40); WHITE BLOOD COUNT 7.1 10^3/uL (4.0-10.0)
[2018-08-31 06:36] LABS: ALBUMIN 2.7 GM/DL (3.2-5.2); BILIRUBIN,TOTAL 0.5 MG/DL (0.2-1.0); CREATININE FOR GFR 1.36 MG/DL (0.55-1.30); GLOMERULAR FILTRATION RATE 39.4 (>32); POTASSIUM SERUM 3.7 MEQ/L (3.5-5.1); TOTAL PROTEIN 6.6 GM/DL (6.4-8.2)
[2018-08-31] MEDS: HEPARIN SOD (PORCINE) 5000 UNITS/ML VIAL SC SCH ×2 (06:38→13:38)
[2018-08-31] MEDS: PIPERACILLIN/TAZOBACTAM SOD 3.375 GM in D5W MINI-BAG PLUS 50 ML IV SCH ×2 (06:38→13:39)
[2018-08-31] MEDS: HumaLOG INSULIN (NovoLOG) PER UNIT SC SCH ×2 (08:29→12:00)
--- NOTE | 2018-08-31 10:19 | IPNPDOC ---
Subjective Date Seen The patient was seen on 08/31/18. Subjective Chief Complaint/HPI Pt this morning denies pain. She cont to confirm that she does not want surgery or an NG tube placed. I talked with her about [employer], I briefly explained what this meant to her, and she replied with "Let me rest please". I asked if I could examine her and she agreed. She then asked if I would take the O2 off from her. I told her that if I did we would need to make her [employer], I again briefly explained what this means. She again told me that she needed to rest. I asked if she minded if I called her sister Flaca Gonzalez to which she agreed. I did call her sister, her phone rang, there was no machine for a message to be left. No transcribed note from 08/30/18 General: Reports: Fatigue Constitutional: Denies: Chills, Fever Pulmonary: Reports: Dyspnea; Denies: Cough Cardiovascular: Denies: Chest Pain, Palpitations Gastrointestinal: Denies: Nausea, Vomiting, Diarrhea Neurological: Reports: Weakness Objective Physical Examination General Exam: Positive: Alert, No Acute Distress ENT Exam: Positive: Mucous membr. moist/pink Chest Exam: Negative: Clear to auscultation (diminished, slightly tachypneic) Heart Exam: Positive: Rate Normal, Normal S1, Normal S2 Abdomen Exam: Positive: Normal bowel sounds, Soft; Negative: Tenderness Extremity Exam: Negative: Edema Psych Exam: Positive: Mental status NL Assessment /Plan Problems (1) SBO (small bowel obstruction) Status: Acute Response to Treatment: Uncontrolled Discussed With: Nurse, Patient, Family with Pt Consent Problem Specific Plan: Consult Specialist, Monitor Clinically, Repeat Labs Problem Text: Pt cont tor refuse intervention, she appears to have no clinical improvement. I talked with her about Hospice and [employer] care. She seems a bit intimidated by this and asks to "rest" when I attempt. I did call her sister but was unable to leave a message and no one answered the phone. At this point her clinical condition appears to be declining if anything. (2) Pelvic mass Status: Chronic Response to Treatment: Uncontrolled Discussed With: Patient Problem Specific Plan: Monitor Clinically Problem Text: Pt has declined invention for many years, she cont to do so now, this is causing SBO which is causing her clinical condition to decline. Plan/VTE VTE Prophylaxis Ordered?: Yes VS, I&O, 24H, Fishbone Vital Signs/I&O Vital Signs Date Time Temp Pulse Resp B/P (MAP) Pulse Ox O2 Delivery O2 Flow Rate FiO2 08/31/18 08:29 30 08/31/18 06:00 97.4 93 105/55 (72) 90 3.0 08/28/18 22:46 Nasal Cannula I&O- Last 24 Hours up to 6 AM 08/31/18 06:00 Intake Total 1700 ml Output Total 740 ml Balance 960 ml Laboratory Data 24H LABS Laboratory Tests 2 08/30/18 12:11: Bedside Glucose (Misc Panel) 81L 08/30/18 16:35: Bedside Glucose (Misc Panel) 108 08/31/18 05:28: Nucleated Red Blood Cells % (auto) 0.0, Anion Gap 5L, Glomerular Filtration Rate 39.4, Blood Urea Nitrogen 54H, Creatinine 1.36H, Sodium Level 148#H, Potassium Level 3.7, Chloride Level 111H, Carbon Dioxide Level 32, Calcium Level 8.0L, Aspartate Amino Transf (AST/SGOT) 20, Alanine Aminotransferase (ALT/SGPT) 21, Alkaline Phosphatase 151H, Total Bilirubin 0.5, Total Protein 6.6, Albumin 2.7#L, Albumin/Globulin Ratio 0.69L CBC/BMP Laboratory Tests 08/31/18 05:28 Red Blood Count 4.49, Mean Corpuscular Volume 101.6 H, Mean Corpuscular Hemoglobin 30.3, Mean Corpuscular Hemoglobin Concent 29.8 L, Red Cell Distribution Width 14.6 H, Calcium Level 8.0 L, Aspartate Amino Transf (AST/SGOT) 20, Alanine Aminotransferase (ALT/SGPT) 21, Alkaline Phosphatase 151 H, Total Bilirubin 0.5, Total Protein 6.6, Albumin 2.7 #L MARTA WAN PA-C Aug 31, 2018 10:19
--- NOTE | 2018-08-31 11:43 | IPN ---
DATE: 08/30/2018 The patient is seen today [facility] Overnight, she was having some tachycardia, probably her average pulse was 115 to 120 range. She had atrial fibrillation and some PVCs. She has not been having any fever. She denies pain when she is asked, although when her abdomen is palpated she will say that that is uncomfortable. She denies cough or shortness of breath, although tends to be somewhat tachypneic. Her respiratory rate is counted, but because of her distended abdomen she does not take very deep breaths. She again adamantly refuses to consider having a NG tube placed or surgery to relieve her obstruction. On current medication regimen, she is getting insulin coverage, subcutaneous heparin, Zosyn and IV Protonix. She has ondansetron available for nausea. She has p.r.n. for hypoglycemia. She is getting IV fluids with normal saline. On examination, her temperature is 98.0, pulse 104 and slightly irregular, blood pressure 129/89, pulse 28 and regular, and O2 saturation on 3 liters 94%. She is awake and alert. Does not seem to be in pain, although she seems to be vaguely uncomfortable. Eyes are clear. Mouth and throat are unremarkable. There is no neck masses, tenderness or adenopathy. No carotid bruits. Her lungs are clear. Abdomen is protuberant. Mildly tender inferiorly. Bowel sounds are diminished. There is no edema. She does have stasis changes and scaling on her shins. She indicates that she has not had a bowel movement or passed any gas. For some reason, the only labs we have today is a magnesium level of 2.5 which is the same as yesterday. ASSESSMENT: 1. Small bowel obstruction. 2. Hypertension. 3. Diabetes. 4. Paroxysmal atrial fibrillation. 5. Chronic pelvic mass felt to be uterine fibroid possibly contributing to her bowel obstruction. PLAN: Again, the patient is refusing nasogastric intubation and indicates she does not want to have surgery. I have again indicated to her that these would be useful to clear up her symptoms and make her better as quickly as possible. I indicated to her that if she refuses surgery and refuses nasogastric intubation that she may from this particular illness. I did discuss that if she continues to refuse interventions and does not get better that our only recourse is really to have hospice in. I did try to contact her sister yesterday and the only number that we have for her no one answered. TU
[2018-08-31 14:00] VITALS: BP 139/85
[2018-08-31] MEDS ORDERED: MORPHINE 4 MG/ML 1ML VIAL/SYRINGE (J2270) IV PRN (16:30)
[2018-08-31] MEDS ORDERED: HYOSCYAMINE SULFATE 0.125 MG SUBL TABLET PO PRN (16:30)
[2018-08-31] MEDS ORDERED: ACETAMINOPHEN 650 MG SUPP PR PRN (16:30)
[2018-08-31] MEDS ORDERED: SCOPOLAMINE 1MG TRANSDERMAL PATCH TOP PRN (16:30)
[2018-08-31] MEDS ORDERED: ATROPINE SULFATE 1% OP SOLN 2 ML BTL SL PRN (16:30)
[2018-08-31] MEDS ORDERED: ONDANSETRON 4MG/2ML VIAL (J2405) IV PRN (16:30)
[2018-08-31] MEDS: LORazepam 2 MG/ML VIAL (J2060) IV PRN (16:35)
[2018-09-01] MEDS: LORazepam 2 MG/ML VIAL (J2060) IV PRN (06:03)
--- NOTE | 2018-09-01 16:07 | DSES ---
DATE OF ADMISSION: 08/28/2018 DATE OF DISCHARGE: 09/01/2018 PRIMARY CARE PHYSICIAN: Dr. Silas Osman ATTENDING: Dr. Val Lance HISTORY: This is an 83-year-old female patient who was transferred from [facility] to [facility] for nausea, vomiting, and abdominal pain. She has a history of a pelvic mass, for which she has refused workup. She has a history of bowel obstruction secondary to this mass. She was admitted to [facility] after evaluation in the emergency room with small-bowel obstruction and acute renal failure secondary to dehydration. Nasogastric (NG) tube was attempted, however, failed. Dr. Holliday was contacted for placement, and the patient refused. During her hospitalization she refused intervention as well as NG-tube placement. Her condition began to decline. We spoke with the patient in regard to her end-of-life wishes. At that point, she opted for comfort measures only, which were implemented for the remainder of her stay. She this morning at 8:40 a.m. DISCHARGE DIAGNOSES: 1. Small-bowel obstruction. 2. Pelvic mass. 3. Type 2 diabetes. 4. Hypertension. 5. Chronic diastolic heart failure.
== END 2018-09-01 08:40 | disposition expired | DRG 389 ==
LOC: M ED 16:59 → M ED INP 20:57 → M MSPAV 23:16
PROVIDERS: ADMIT Family Medicine; ATTEND Family Medicine
DX: K56.601 Complete intestinal obstruction, unspecified as to cause (principal); I50.32 Chronic diastolic (congestive) heart failure; N17.9 Acute kidney failure, unspecified; E11.9 Type 2 diabetes mellitus without complications; I11.0 Hypertensive heart disease with heart failure; I48.0 Paroxysmal atrial fibrillation; E86.0 Dehydration; D25.9 Leiomyoma of uterus, unspecified; R19.03 Right lower quadrant abdominal swelling, mass and lump; Z51.5 Encounter for palliative care; Z66 Do not resuscitate; Z88.8 Allergy status to other drugs, medicaments and biological substances; Z79.82 Long term (current) use of aspirin; Z79.899 Other long term (current) drug therapy; Z53.29 Procedure and treatment not carried out because of patient's decision for other reasons

== ENCOUNTER → 2018-08-28 | Outpatient (REF) | payer MEDICARE, MEDICAID ==
[~2018-08-28] MED LIST changes: -ENEMENE16 PR; +ENEMENE4 PR; +GOLDPOW2 TOP; -LASI20TA PO; +LASI20TA3 PO; +LASI40TA9 PO; +METO25TA4 PO; +MILK120011 PO; -MILK12002 PO
[2018-08-28 15:14] LABS: BASO % 0.2 % (0.0-1.0); HEMATOCRIT 40.6 % (36.0-47.0); HEMOGLOBIN 13.3 g/dl (12.0-15.5); LYMPH # 0.6 10^3/uL (1.5-4.5); LYMPH % 3.2 % (24.0-44.0); MEAN CORPUSCULAR HEMOGLOBIN 30.6 pg (27.0-33.0); MEAN CORPUSCULAR HGB CONC 32.8 g/dl (32.0-36.5); MEAN CORPUSCULAR VOLUME 93.5 fl (80.0-96.0); MONO # 0.8 10^3/uL (0.0-0.8); MONO % 4.4 % (0.0-5.0); NEUTROPHILS # 16.6 10^3/uL (1.8-7.7); NEUTROPHILS % 91.4 % (36.0-66.0); PLATELET COUNT, AUTOMATED 310 10^3/uL (150-450); RED BLOOD COUNT 4.34 10^6/uL (4.00-5.40); WHITE BLOOD COUNT 18.2 10^3/uL (4.0-10.0)
--- NOTE | 2018-08-28 15:26 | REP ---
PORTABLE ABDOMEN: Portable AP film of the abdomen and pelvis is performed. There are multiple moderately dilated small bowel loops in the abdomen and pelvis. This raises the possibility of small bowel obstruction. Objectively, this could indicate a generalized ileus. There are degenerative changes of the spine. IMPRESSION: Multiple moderately dilated small bowel loops in the abdomen and pelvis may indicate small bowel obstruction. Electronically Signed by Alan Uribe MD 08/31/2018 11:53 A
[2018-08-28 15:46] LABS: ALBUMIN 3.4 GM/DL (3.2-5.2); BILIRUBIN,TOTAL 0.6 MG/DL (0.2-1.0); CREATININE FOR GFR 1.89 MG/DL (0.55-1.30); POTASSIUM SERUM 4.8 MEQ/L (3.5-5.1)
== END ==
LOC: SKLAB5 14:32
PROVIDERS: ATTEND Family Medicine
DX: R11.10 Vomiting, unspecified (principal); R14.0 Abdominal distension (gaseous)